=== PATIENT | female | born 1995 | race American Indian/Alaskan Native ===

== ENCOUNTER 2016-11-09 14:06 | Emergency (ER) | payer MEDICAID, OTHER ==
[2016-11-09 14:07] VITALS: BMI 24.5
[2016-11-09] MEDS ORDERED: Sodium Chloride 0.9% 1,000 ML IV ONE (14:36)
--- NOTE | 2016-11-09 14:40 | C.PDOC ---
History Of Present Illness <Tao Quijano - Last Filed: 11/09/16 21:35> <MorenaCon - Last Filed: 11/10/16 19:37> Patient is a 21 year old female with no PMHx who presents to the ER with a complaint of abdominal pain and vomiting since yesterday. Patient denies fever, nausea, diarrhea, or any other complaint. (Con Berg) <Tao Quijano - Last Filed: 11/09/16 21:35> History Per: Patient History/Exam Limitations: no limitations Onset/Duration Of Symptoms: Days (Since yesterday) Current Symptoms Are (Timing): Still Present Context: Other (None) Location Of Pain/Discomfort: Other (Abdominal pain) Radiation Of Pain To:: None Quality Of Discomfort: Unable To Describe Associated Symptoms: Vomiting. denies: Fever Exacerbating Factors: None Alleviating Factors: None <Con Berg - Last Filed: 11/10/16 19:37> Time Seen by Provider: 11/09/16 14:31 Chief Complaint (Nursing): Abdominal Pain Past Medical History Reviewed: Historical Data, Nursing Documentation, Vital Signs - Medical History PMH: No Chronic Diseases Surgical History: No Surg Hx Family History: States: Unknown Family Hx - Social History Hx Tobacco Use: No Hx Alcohol Use: Yes Hx Substance Use: No - Immunization History Hx Tetanus Toxoid Vaccination: No Hx Influenza Vaccination: No Hx Pneumococcal Vaccination: No <MorenaChelseaCon - Last Filed: 11/10/16 19:37> Vital Signs: Last Vital Signs Temp 98.4 F 11/09/16 21:14 Pulse 80 11/09/16 21:14 Resp 16 11/09/16 21:14 BP 107/62 11/09/16 21:14 Pulse Ox 98 11/09/16 21:40 Review Of Systems Except As Marked, All Systems Reviewed And Found Negative. Constitutional: Negative for: Fever Gastrointestinal: Positive for: Vomiting, Abdominal Pain. Negative for: Nausea , Diarrhea <MorenaCon - Last Filed: 11/10/16 19:37> Physical Exam - Physical Exam Appears: Well, Non-toxic Skin: Normal Color, Warm, Dry Head: Atraumatic, Normacephalic Oral Mucosa: Moist Chest: Symmetrical, No Tenderness Cardiovascular: Rhythm Regular, No Murmur Respiratory: Normal Breath Sounds, No Rales, No Rhonchi, No Wheezing Gastrointestinal/Abdominal: Soft, Tenderness (mild, suprapubic), No Guarding, No Rebound Back: No CVA Tenderness Neurological/Psych: Oriented x3, Normal Speech, Normal Cognition <Con Berg - Last Filed: 11/10/16 19:37> ED Course And Treatment - Laboratory Results Result Diagrams: 11/09/16 14:59 11/09/16 14:59 O2 Sat by Pulse Oximetry: 98 Pulse Ox Interpretation: Normal Reevaluation Time: 21:35 Reassessment Condition: Improved <Tao Quijano - Last Filed: 11/09/16 21:35> - Laboratory Results Result Diagrams: 11/09/16 14:59 11/09/16 14:59 <Con Berg - Last Filed: 11/10/16 19:37> Medical Decision Making <Tao Quijano - Last Filed: 11/09/16 21:35> <Con Berg - Last Filed: 11/10/16 19:37> Medical Decision Making: Dedra provider reevaluation patient is feeling better, is medically stable, and requires no further treatment in the ED at this time. Patient will be discharged home with Rx forflagyl. Counseling was provided and all questions were answered regarding diagnosis and need for follow up with the referred clinic. There is agreement to discharge plan. Return if symptoms persist or worsen. (Tao Quijano) Plan: * Blood work * Urinalysis * Zofran IVP * IV fluids * 600: pt reassessed. pain improved. ct pending. 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 [Outside] [facility] [Outside] Disposition: HOME/ ROUTINE Condition: FAIR Additional Instructions: please return if symptoms recur, or have high fevers, abdominal pain, diarrhea( even bloody) Prescriptions: Metronidazole [Flagyl] 500 mg PO TID #21 tablet Instructions: Enteritis (ED) Forms: Work Excuse - Clinical Impression Clinical Impression: Ileitis <Tao Quijano - Last Filed: 11/09/16 21:35> - Scribe Statement The provider has reviewed the documentation as recorded by the Scribe <Con Berg - Last Filed: 11/10/16 19:37> - Scribe Statement Ari Hays All medical record entries made by the Scribe were at my direction and personally dictated by me. I have reviewed the chart and agree that the record accurately reflects my personal performance of the history, physical exam, medical decision making, and the department course for this patient. I have also personally directed, reviewed, and agree with the discharge instructions and disposition. (Con Berg)
[2016-11-09 14:42] VITALS: RESP 16
[2016-11-09] MEDS ORDERED: Sodium Chloride 0.9% 1,000 ML ONE (14:45)
[2016-11-09 15:03] LABS: BASO % 0.2 % (0.0-2.0); EOS # 0.1 K/uL (0.0-0.7); EOS % 0.4 % (0.0-4.0); HEMATOCRIT 30.8 % (34.0-47.0); LYMPH # 1.3 K/uL (1.0-4.3); LYMPH % 8.7 % (20.0-40.0); MEAN CELL VOLUME 72.3 fL (81.0-99.0); MEAN CORPUSCULAR HEMOGLOBIN 22.6 pg (27.0-31.0); MEAN CORPUSCULAR HGB CONC 31.3 g/dL (33.0-37.0); MEAN PLATELET VOLUME 7.1 fL (7.2-11.7); MONO # 1.2 K/uL (0.0-0.8); MONO % 7.5 % (0.0-10.0); PLATELET COUNT 617 K/uL (130-400); RED CELL DISTRIBUTION WIDTH 18.2 % (11.5-14.5); WHITE BLOOD COUNT 15.5 K/uL (4.8-10.8)
[2016-11-09 15:06] LABS: RBC URINE 4 /hpf (0-3); URINE BACTERIA RARE (<OCC); URINE BILIRUBIN NEGATIVE (NEGATIVE); URINE BLOOD NEGATIVE (NEGATIVE); URINE COLOR Amber (YELLOW); URINE GLUCOSE (UA) NORMAL (Normal); URINE KETONE 2+ mg/dL (NEGATIVE); URINE LEUKOCYTE ESTERASE NEG Leu/uL (Negative); URINE PROTEIN 2+ mg/dL (NEGATIVE); URINE UROBILINOGEN NORMAL mg/dL (0.2-1.0); WBC URINE 9 /hpf (0-5)
[2016-11-09 15:11] LABS: INR 1.3
[2016-11-09 15:15] LABS: CHLORIDE 97 mmol/L (98-107); POTASSIUM 3.6 mmol/L (3.6-5.2); SODIUM 138 mmol/L (132-148)
[2016-11-09 15:17] LABS: AST/SGOT 12 U/L (14-36); BILIRUBIN,TOTAL 0.3 mg/dL (0.2-1.3); CARBON DIOXIDE 23 mmol/L (22-30); GFR AFRICAN-AMERICAN > 60
[2016-11-09 15:18] LABS: ALB/GLOB RATIO 1.1 (1.0-2.1); ALKALINE PHOSPHATASE 76 U/L (38-126); ALT/SGPT 22 U/L (9-52); BLOOD UREA NITROGEN 10 mg/dL (7-17); CALCIUM 9.6 mg/dl (8.6-10.4); GLUCOSE,RANDOM 102 mg/dL (65-105); TOTAL PROTEIN 8.4 g/dL (6.3-8.3)
[2016-11-09 15:32] LABS: NEUTROPHIL 89 % (50-75); TOTAL CELLS COUNTED 100
[2016-11-09] MEDS ORDERED: Iodixanol 320 MG/ML 100 ML BOTTLE IV ONE (18:36)
[2016-11-09 21:15] VITALS: BP 107/62; PULSE 80; TEMP 98.4; O2SAT 98
--- NOTE | 2016-11-10 10:11 | CT ---
PROCEDURE: CT Abdomen and Pelvis without intravenous contrast HISTORY: Lower abdominal pain COMPARISON: None. TECHNIQUE: Multiple contiguous axial images were performed through the abdomen and pelvis with intravenous contrast. Subsequently, sagittal coronal reformatted images were obtained. Contrast Dose: 100 cc of Visipaque 320 intravenous contrast was administered. Radiation dose: Total exam DLP = 228 mGy-cm. This CT exam was performed using one or more of the following dose reduction techniques: Automated exposure control, adjustment of the mA and/or kV according to patient size, and/or use of iterative reconstruction technique. FINDINGS: LOWER THORAX: Unremarkable. LIVER: Unremarkable. No gross lesion or ductal dilatation. GALLBLADDER AND BILE DUCTS: Unremarkable. PANCREAS: Unremarkable. No gross lesion or ductal dilatation. SPLEEN: Unremarkable. ADRENALS: Unremarkable. No mass. KIDNEYS AND URETERS: 4 millimeter hypodense lesion in the upper pole of the left kidney, too small to adequately characterize. VASCULATURE: Unremarkable. No aortic aneurysm. BOWEL: Severe mucosal thickening of the terminal ileum with prominent surrounding inflammation consistent with ileitis. This is causing a resultant mechanical small bowel obstruction with multiple dilated loops of small bowel. Under distended and or thick and transverse and left hemicolon. APPENDIX: Not well identified. Likely obscured by adjacent inflammation. PERITONEUM: Small amount of free fluid within the pelvis. LYMPH NODES: Prominent lymph nodes in the right lower quadrant which are likely reactive. BLADDER: Unremarkable. REPRODUCTIVE: Unremarkable. BONES: No acute fracture. OTHER FINDINGS: None. IMPRESSION: Severe mucosal thickening in the terminal ileum with surrounding inflammation consistent with an ileitis. This causes a resultant mechanical small bowel obstruction. Findings suggest possible acute inflammatory disease such as Crohn's disease although infection may have a similar appearance. Post treatment followup may be helpful if clinically indicated. Correlation with clinical history is recommended. Prominent lymph nodes in the right lower quadrant which are likely reactive. These findings were preliminarily reported at 9:22 p.m. on 11/09/[address] José Manuel Marti from [employer].
== END 2016-11-09 22:07 | disposition home or self-care (01) ==
LOC: C.ER 14:06
DX: K52.9 Noninfective gastroenteritis and colitis, unspecified (principal)
CPT/HCPCS: 74177; 80053; 81001; 83690; 84703; 85025; 85610; 85730; 96361; 96374; 96375; 99284; J1885; J2405; J7040; Q9967

== ENCOUNTER 2016-11-12 20:23 | Inpatient (IN) | payer MEDICAID, OTHER ==
[2016-11-12 20:23] VITALS: BMI 24.5
[2016-11-12 21:18] VITALS: O2SAT 100
[2016-11-12] MEDS ORDERED: Sodium Chloride 0.9% 1,000 ML IV ONE (22:03)
[2016-11-12] MEDS ORDERED: Iohexol 240 (50 ml) PO ONE (22:05)
[2016-11-12] MEDS ORDERED: Iohexol 240 (50 ml) ONE (22:20)
[2016-11-12] MEDS ORDERED: Sodium Chloride 0.9% 1,000 ML ONE (22:20)
[2016-11-12 22:23] LABS: BASO # 0.1 K/uL (0.0-0.2); BASO % 0.5 % (0.0-2.0); EOS # 0.1 K/uL (0.0-0.7); EOS % 0.7 % (0.0-4.0); HEMATOCRIT 31.4 % (34.0-47.0); LYMPH # 1.8 K/uL (1.0-4.3); LYMPH % 16.1 % (20.0-40.0); MEAN CELL VOLUME 71.7 fL (81.0-99.0); MEAN CORPUSCULAR HEMOGLOBIN 22.2 pg (27.0-31.0); MEAN PLATELET VOLUME 7.1 fL (7.2-11.7); MONO # 0.8 K/uL (0.0-0.8); MONO % 6.6 % (0.0-10.0); RED CELL DISTRIBUTION WIDTH 17.7 % (11.5-14.5); WHITE BLOOD COUNT 11.5 K/uL (4.8-10.8)
[2016-11-12 22:33] LABS: CHLORIDE 96 mmol/L (98-107); POTASSIUM 2.9 mmol/L (3.6-5.2); SODIUM 139 mmol/L (132-148)
[2016-11-12 22:35] LABS: AST/SGOT 13 U/L (14-36); BILIRUBIN,TOTAL 0.6 mg/dL (0.2-1.3); CARBON DIOXIDE 27 mmol/L (22-30); GFR AFRICAN-AMERICAN > 60
[2016-11-12 22:36] LABS: ALB/GLOB RATIO 1.1 (1.0-2.1); ALKALINE PHOSPHATASE 61 U/L (38-126); ALT/SGPT 16 U/L (9-52); BLOOD UREA NITROGEN 5 mg/dL (7-17); CALCIUM 9.2 mg/dl (8.6-10.4); GLUCOSE,RANDOM 92 mg/dL (65-105)
[2016-11-12 22:44] LABS: RBC URINE 3 /hpf (0-3); URINE BACTERIA RARE (<OCC); URINE BILIRUBIN NEGATIVE (NEGATIVE); URINE BLOOD NEGATIVE (NEGATIVE); URINE COLOR YELLOW (YELLOW); URINE GLUCOSE (UA) NORMAL (Normal); URINE KETONE NEGATIVE (NEGATIVE); URINE LEUKOCYTE ESTERASE 2+ Leu/uL (Negative); URINE PROTEIN 1+ mg/dL (NEGATIVE); URINE UROBILINOGEN NORMAL mg/dL (0.2-1.0); WBC URINE 25 /hpf (0-5)
[2016-11-12] MEDS ORDERED: Iodixanol 320 mg/ml 150 ml Bottle IV ONE (23:12)
--- NOTE | 2016-11-12 23:59 | C.PDOC ---
History Of Present Illness Patient is a 21 year old female who presents to the ER with a complaint of lower abdominal pain for the past 3 days. Patient was seen on 11/09 where she was diagnosed with terminal enteritis, she was given flagyl and discharged home. Patient reports having nausea and vomiting due to the flagyl and states having poor PO intake due to the vomiting. Denies fever or chills. Time Seen by Provider: 11/12/16 21:52 Chief Complaint (Nursing): Abdominal Pain History Per: Patient History/Exam Limitations: no limitations Onset/Duration Of Symptoms: Days (3) Current Symptoms Are (Timing): Still Present Location Of Pain/Discomfort: Other (Lower abdominal) Radiation Of Pain To:: None Quality Of Discomfort: Unable To Describe Associated Symptoms: Nausea, Vomiting. denies: Fever, Chills Exacerbating Factors: None Alleviating Factors: None Recent travel outside of the [place]: No Abnormal Vaginal Bleeding: No Past Medical History Reviewed: Historical Data, Nursing Documentation, Vital Signs Vital Signs: Last Vital Signs Temp 98.6 F 11/12/16 21:14 Pulse 115 H 11/12/16 21:14 Resp 14 11/12/16 21:14 BP 106/71 11/12/16 21:14 Pulse Ox 100 11/13/16 00:35 - Medical History PMH: No Chronic Diseases Surgical History: No Surg Hx Family History: States: Unknown Family Hx - Social History Hx Tobacco Use: No Hx Alcohol Use: Yes Hx Substance Use: No - Immunization History Hx Tetanus Toxoid Vaccination: No Hx Influenza Vaccination: No Hx Pneumococcal Vaccination: No Review Of Systems Constitutional: Negative for: Fever, Chills Gastrointestinal: Positive for: Nausea, Vomiting, Abdominal Pain (Lower) Physical Exam - Physical Exam Appears: Well, Non-toxic, No Acute Distress Skin: Normal Color, Warm, Dry Head: Atraumatic, Normacephalic Oral Mucosa: Dry Chest: Symmetrical, No Tenderness Cardiovascular: Rhythm Regular, No Murmur Respiratory: Normal Breath Sounds, No Rales, No Rhonchi, No Wheezing Gastrointestinal/Abdominal: Soft, Tenderness (RLQ) Neurological/Psych: Oriented x3, Normal Speech, Normal Cognition ED Course And Treatment - Laboratory Results Result Diagrams: 11/12/16 22:18 11/12/16 22:18 Lab Interpretation: Abnormal (leukocytosis, + hypokalemia, UA 25 WBC's, microcytic anemia) Urine POC: Negative ECG: Interpreted By Me ECG Rhythm: Sinus Rhythm ECG Interpretation: Normal Rate From EC (without flattened T^'s) O2 Sat by Pulse Oximetry: 100 (Room air) Pulse Ox Interpretation: Normal Progress Note: abd/pel CT w/ IV & PO contrast ordered. Pepcid IVP, toradol IVP, zofran IVP, and IV fluids administered. Reevaluation Time: 00:31 Reassessment Condition: Improved - Physician Consult Information Outcome Of Conversation: 0030: d/w Dr. Frias- [employer]. ok to Tele Obs. Medical Decision Making Medical Decision Making: terminal iliitis seen 11/09 with worstening on Flagyl noted on CT Dehydration and hypokalemia from poor intake and vomiting- repleating ? underlying Crohn's Dz- GI consult pending. Cipro empirically to cover GI and UTI Iron Def anemia of ? etiology- consider GI and [employer] evals Disposition Doctor Will See Patient In The: Hospital Counseled Patient/Family Regarding: Studies Performed, Diagnosis - Disposition Disposition: HOSPITALIZED Disposition Time: 00:33 Condition: FAIR - Clinical Impression Clinical Impression: Ileitis, terminal, Dehydration, Hypokalemia, UTI (urinary tract infection), Iron deficiency anemia - Scribe Statement The provider has reviewed the documentation as recorded by the Scribmelvin Hays All medical record entries made by the Scribe were at my direction and personally dictated by me. I have reviewed the chart and agree that the record accurately reflects my personal performance of the history, physical exam, medical decision making, and the department course for this patient. I have also personally directed, reviewed, and agree with the discharge instructions and disposition.
[2016-11-13] MEDS ORDERED: Sodium Chloride 0.9% 1,000 ML IV ONE (00:12)
--- NOTE | 2016-11-13 00:13 | CT ---
EXAM: CT Abdomen and Pelvis With Intravenous Contrast CLINICAL HISTORY: 21 years old, female; Pain; Abdominal pain; Flank; Right lower quadrant (rlq); Additional info: Rlq pain x 5 days TECHNIQUE: Axial computed tomography images of the abdomen and pelvis with intravenous contrast. This CT exam was performed using one or more of the following dose reduction techniques: automated exposure control, adjustment of the mA and/or kV according to patient size, and/or use of iterative reconstruction technique. Coronal and sagittal reformatted images were created and reviewed. CONTRAST: 100 mL of visipaque 320 administered intravenously. COMPARISON: CT - ABD PELVIS IV CONTRAST ONLY 11/09/2016 6:48:52 PM FINDINGS: Lower thorax: No acute findings. ABDOMEN: Liver: Unremarkable. No mass. Gallbladder and bile ducts: No calcified stones. No ductal dilation. Pancreas: No ductal dilation. No mass. Spleen: No splenomegaly. Adrenals: No mass. Kidneys and ureters: No mass. No hydronephrosis. Stomach and bowel: Fluid/loose stool within colon. Marked mural thickening of terminal ileum, similar to previous examination. Moderate stranding within adjacent fat. Few mildly thickened loops of small bowel within pelvis. Segmental areas of underdistention of colon. No definite obstruction. Appendix: Not visualized. PELVIS: Bladder: Unremarkable. Reproductive: Unremarkable as visualized. ABDOMEN and PELVIS: Intraperitoneal space: Small free fluid within pelvis. No free air. Bones/joints: No acute fracture. Soft tissues: Unremarkable. Vasculature: Unremarkable. No abdominal aortic aneurysm. Lymph nodes: Several subcentimeter/mildly enlarged short axis mesenteric lymph nodes, likely reactive. IMPRESSION: 1. Severe enteritis, nonspecific. Consider inflammatory or infectious etiologies. 2. Incidental/non-acute findings are described above.
[2016-11-13] MEDS ORDERED: Sodium Chloride 0.9% 1,000 ML ONE (00:28)
[2016-11-13] MEDS ORDERED: Ciprofloxacin 400mg/200ml D5W 400 MG/200 ML BAG IV STA (00:34)
[2016-11-13] MEDS ORDERED: Ciprofloxacin 400mg/200ml D5W 400 MG/200 ML BAG IVPB ONE (01:00)
[2016-11-13] MEDS: Potassium Chloride 20 MEQ in Dextrose 5%/0.45% NS 1,000 ML IV SCH ×2 (08:38→19:33)
[2016-11-13] MEDS: Ciprofloxacin 400mg/200ml D5W 400 MG/200 ML BAG IVPB SCH ×2 (08:39→19:33)
[2016-11-13 08:58] LABS: CHLORIDE 101 mmol/L (98-107); POTASSIUM 3.1 mmol/L (3.6-5.2); SODIUM 136 mmol/L (132-148)
[2016-11-13 09:01] LABS: BLOOD UREA NITROGEN 3 mg/dL (7-17); CARBON DIOXIDE 26 mmol/L (22-30); GFR AFRICAN-AMERICAN > 60
[2016-11-13 09:02] LABS: CALCIUM 7.9 mg/dl (8.6-10.4); GLUCOSE,RANDOM 81 mg/dL (65-105); MAGNESIUM 1.9 mg/dL (1.6-2.3)
[2016-11-13] MEDS: metroNIDAZOLE IV 500 mg/100 ml 500 MG/100 ML BAG IVPB SCH ×2 (13:57→22:02)
[2016-11-13 19:37] VITALS: RESP 20
[2016-11-14] MEDS: Potassium Chloride 20 MEQ in Dextrose 5%/0.45% NS 1,000 ML IV SCH ×3 (01:22→15:31)
[2016-11-14] MEDS: metroNIDAZOLE IV 500 mg/100 ml 500 MG/100 ML BAG IVPB SCH ×2 (05:40→13:11)
[2016-11-14] MEDS: Ciprofloxacin 400mg/200ml D5W 400 MG/200 ML BAG IVPB SCH (07:39)
[2016-11-14 14:56] LABS: CHLORIDE 97 mmol/L (98-107)
[2016-11-14 14:57] LABS: POTASSIUM 3.3 mmol/L (3.6-5.2); SODIUM 134 mmol/L (132-148)
[2016-11-14 15:00] LABS: CALCIUM 8.8 mg/dl (8.6-10.4); CARBON DIOXIDE 25 mmol/L (22-30); GFR AFRICAN-AMERICAN > 60; GLUCOSE,RANDOM 81 mg/dL (65-105)
[2016-11-14 15:01] LABS: MAGNESIUM 1.6 mg/dL (1.6-2.3)
[2016-11-14 15:04] LABS: BLOOD UREA NITROGEN < 2 mg/dL (7-17)
[2016-11-14] MEDS ORDERED: Potassium Chloride 20 mEq ER Tab PO ONE (15:11)
--- NOTE | 2016-11-14 15:57 | CP.PCM.PN ---
Subjective - Date & Time of Evaluation Date of Evaluation: 11/14/16 Time of Evaluation: 15:57 - Subjective Subjective: Alert, oriented x3, denies pain, tolerating liquid diet, NAD. Objective - Vital Signs/Intake and Output Vital Signs (last 24 hours): Temp Pulse Resp BP Pulse Ox 98.4 F 82 20 110/72 100 11/14/16 07:36 11/14/16 07:36 11/14/16 07:36 11/14/16 07:36 11/14/16 07:36 Intake and Output: 11/14/16 11/14/16 06:59 18:59 Intake Total 1470 Balance 1470 - Medications Medications: Current Medications Ciprofloxacin (Cipro 400mg/200ml Dsw) 400 mg in 200 mls @ 133 mls/hr IVPB Q12H [facility] Last Admin: 11/14/16 07:39 Dose: 133 mls/hr Metronidazole (Flagyl) 500 mg in 100 mls @ 100 mls/hr IVPB Q8 [facility] Last Admin: 11/14/16 13:11 Dose: 100 mls/hr Potassium Chloride 20 meq/ (Dextrose/Sodium Chloride) 1,010 mls @ 100 mls/hr IV .Q10H6M [facility] Last Admin: 11/14/16 15:31 Dose: Not Given Ondansetron HCl (Zofran Inj) 4 mg IVP Q6 PRN PRN Reason: Nausea/Vomiting Pantoprazole Sodium (Protonix Inj) 40 mg IVP DAILY [facility] Last Admin: 11/14/16 10:32 Dose: 40 mg - Labs Labs: 11/14/16 14:45 Assessment and Plan - Assessment and Plan (Free Text) Assessment: Patient is seen and examined, denies acute pain or vomiting. Potassium 3.3 today , replaced with 40meq kdur x1 dose. D/W DR Frias, discharge plan x for home on keflex for 7 days. Advised to follow up in the office in 1 week.
--- NOTE | 2016-11-14 16:02 | CP.PCM.HP ---
History of Present Illness - History of Present Illness History of Present Illness: Patient is a 21 year old female who presents to the ER with a complaint of lower abdominal pain for the past 3 days. Patient was seen on 11/09 where she was diagnosed with terminal enteritis, she was given flagyl and discharged home. Patient reports having nausea and vomiting due to the flagyl and states having poor PO intake due to the vomiting. Denies fever or chills. Present on Admission - Present on Admission Any Indicators Present on Admission: No Review of Systems - Review of Systems Systems not reviewed;Unavailable: Acuity of Condition - Constitutional Constitutional: Anorexia, Chills, Fatigue, Fever, Lethargy, Malaise - EENT Eyes: absent: As Per HPI, Blind Spots, Blurred Vision, Change in Vision, Decreased Night Vision, Diplopia, Discharge, Dry Eye, Exophthalmos, Floaters, Irritation, Itchy Eyes, Loss of Peripheral Vision, Pain, Photophobia, Requires Corrective Lenses, Sees Flashes, Spots in Vision, Tunnel Vision, Other Visual Disturbances, Loss of Vision, Other Nose/Mouth/Throat: absent: As Per HPI, Epistaxis, Nasal Congestion, Nasal Discharge, Nasal Obstruction, Nasal Trauma, Nose Pain, Post Nasal Drip, Sinus Pain, Sinus Pressure, Bleeding Gums, Change in Voice, Dental Pain, Dry Mouth, Dysphagia, Halitosis, Hoarsness, Lip Swelling, Mouth Lesions, Mouth Pain, Odynophagia, Sore Throat, Throat Swelling, Tongue Swelling, Facial Pain, Neck Pain, Neck Mass, Other - Cardiovascular Cardiovascular: absent: As Per HPI, Acrocyanosis, Chest Pain, Chest Pain at Rest , Chest Pain with Activity, Claudication, Diaphoresis, Dyspnea, Dyspnea on Exertion, Edema, Irregular Heart Rhythm, Pain Radiating to Arm/Neck/Jaw, Leg Edema, Leg Ulcers, Lightheadedness, Orthopnea, Palpitations, Paroxysmal Nocturnal Dyspnea, Pedal Edema, Radiating Pain, Rapid Heart Rate, Slow Heart Rate, Syncope, Other - Respiratory Respiratory: absent: As Per HPI, Cough, Dyspnea, Hemoptysis, Dyspnea on Exertion , Wheezing, Snoring, Stridor, Pain on Inspiration, Chest Congestion, Excessive Mucous Production, Change in Mucous Color, Pain with Coughing, Other - Gastrointestinal Gastrointestinal: Abdominal Pain, Diarrhea, Nausea, Vomiting Past Patient History - Infectious Disease Hx of Infectious Diseases: None - Past Medical History & Family History Past Medical History?: No - Past Social History Smoking Status: Never Smoked - MUSCULOSKELETAL/RHEUMATOLOGICAL Hx Falls: No - PSYCHIATRIC Hx Substance Use: No - SURGICAL HISTORY Hx Surgeries: No - ANESTHESIA Hx Anesthesia: No Meds Home Medications: Home Medication List Medication Instructions Recorded Confirmed Type Cephalexin [Keflex] 500 mg PO Q8H #9 capsule 11/14/16 Rx Allergies/Adverse Reactions: Allergies Allergy/AdvReac Type Severity Reaction Status Date / Time No Known Allergies Allergy Verified 11/12/16 21:18 Physical Exam - Constitutional Appears: Well, No Acute Distress - Head Exam Head Exam: ATRAUMATIC, NORMAL INSPECTION, NORMOCEPHALIC - Eye Exam Eye Exam: EOMI, Normal appearance, PERRL Pupil Exam: NORMAL ACCOMODATION, PERRL - ENT Exam ENT Exam: Mucous Membranes Moist, Normal Exam - Neck Exam Neck exam: Positive for: Normal Inspection - Cardiovascular Exam Cardiovascular Exam: REGULAR RHYTHM - GI/Abdominal Exam GI & Abdominal Exam: Normal Bowel Sounds, Soft. absent: Tenderness - Extremities Exam Extremities exam: Positive for: normal inspection Results - Vital Signs Recent Vital Signs: Last Vital Signs Temp 98.4 F 11/14/16 07:36 Pulse 82 11/14/16 07:36 Resp 20 11/14/16 07:36 BP 110/72 11/14/16 07:36 Pulse Ox 100 11/14/16 07:36 - Labs Result Diagrams: 11/12/16 22:18 11/14/16 14:45 Labs: Laboratory Results - last 24 hr 11/14/16 14:45 Sodium 134 Potassium 3.3 L Chloride 97 L Carbon Dioxide 25 Anion Gap 15 BUN < 2 L Creatinine 0.7 Est GFR ( Amer) > 60 Est GFR (Non-Af Amer) > 60 Random Glucose 81 Calcium 8.8 Magnesium 1.6 Assessment & Plan (1) Dehydration Status: Acute (2) Hypokalemia Status: Acute (3) Ileitis, terminal Status: Acute (4) UTI (urinary tract infection) Status: Acute
[2016-11-14 16:43] VITALS: BP 112/74; PULSE 88; TEMP 98.6
--- NOTE | 2016-11-14 17:52 | CP.PCM.DIS ---
Provider - Provider Date of Admission: 11/13/16 00:28 Attending physician: Darian Frias MD Time Spent in preparation of Discharge (in minutes): 30 Diagnosis - Discharge Diagnosis (1) Dehydration Status: Acute (2) Hypokalemia Status: Acute (3) Ileitis, terminal Status: Acute (4) UTI (urinary tract infection) Status: Acute Hospital Course - Lab Results Lab Results: Most Recent Lab Values WBC 11.5 K/uL (4.8-10.8) H 11/12/16 22:18 RBC 4.38 Mil/uL (3.80-5.20) 11/12/16 22:18 Hgb 9.7 g/dL (11.0-16.0) L 11/12/16 22:18 Hct 31.4 % (34.0-47.0) L 11/12/16 22:18 MCV 71.7 fL (81.0-99.0) L 11/12/16 22:18 MCH 22.2 pg (27.0-31.0) L 11/12/16 22:18 MCHC 31.0 g/dL (33.0-37.0) L 11/12/16 22:18 RDW 17.7 % (11.5-14.5) H 11/12/16 22:18 Plt Count 575 K/uL (130-400) H 11/12/16 22:18 MPV 7.1 fL (7.2-11.7) L 11/12/16 22:18 Neut % (Auto) 76.1 % (50.0-75.0) H 11/12/16 22:18 Lymph % (Auto) 16.1 % (20.0-40.0) L 11/12/16 22:18 Karnes % (Auto) 6.6 % (0.0-10.0) 11/12/16 22:18 Eos % (Auto) 0.7 % (0.0-4.0) 11/12/16 22:18 Baso % (Auto) 0.5 % (0.0-2.0) 11/12/16 22:18 Neut # 8.7 K/uL (1.8-7.0) H 11/12/16 22:18 Lymph # 1.8 K/uL (1.0-4.3) 11/12/16 22:18 Karnes # 0.8 K/uL (0.0-0.8) 11/12/16 22:18 Eos # 0.1 K/uL (0.0-0.7) 11/12/16 22:18 Baso # 0.1 K/uL (0.0-0.2) 11/12/16 22:18 Sodium 134 mmol/L (132-148) 11/14/16 14:45 Potassium 3.3 mmol/L (3.6-5.2) L 11/14/16 14:45 Chloride 97 mmol/L (98-107) L 11/14/16 14:45 Carbon Dioxide 25 mmol/L (22-30) 11/14/16 14:45 Anion Gap 15 (10-20) 11/14/16 14:45 BUN < 2 mg/dL (7-17) L 11/14/16 14:45 Creatinine 0.7 MG/DL (0.7-1.2) 11/14/16 14:45 Est GFR ( Amer) > 60 11/14/16 14:45 Est GFR (Non-Af Amer) > 60 11/14/16 14:45 Random Glucose 81 mg/dL (65-105) 11/14/16 14:45 Calcium 8.8 mg/dl (8.6-10.4) 11/14/16 14:45 Magnesium 1.6 mg/dL (1.6-2.3) 11/14/16 14:45 Total Bilirubin 0.6 mg/dL (0.2-1.3) 11/12/16 22:18 AST 13 U/L (14-36) L 11/12/16 22:18 ALT 16 U/L (9-52) 11/12/16 22:18 Alkaline Phosphatase 61 U/L (38-126) 11/12/16 22:18 Total Protein 8.0 g/dL (6.3-8.3) 11/12/16 22:18 Albumin 4.2 g/dL (3.5-5.0) 11/12/16 22:18 Globulin 3.9 gm/dL (2.2-3.9) 11/12/16 22:18 Albumin/Globulin Ratio 1.1 (1.0-2.1) 11/12/16 22:18 Lipase 19 U/L (23-300) L 11/12/16 22:18 Urine Color Yellow (YELLOW) 11/12/16 22:18 Urine Clarity Hazy (Clear) 11/12/16 22:18 Urine pH 7.0 (5.0-8.0) 11/12/16 22:18 Ur Specific [place] 1.013 (1.003-1.030) 11/12/16 22:18 Urine Protein 1+ mg/dL (NEGATIVE) H 11/12/16 22:18 Urine Glucose (UA) Normal mg/dL (Normal) 11/12/16 22:18 Urine Ketones Negative mg/dL (NEGATIVE) 11/12/16 22:18 Urine Blood Negative (NEGATIVE) 11/12/16 22:18 Urine Nitrate Negative (NEGATIVE) 11/12/16 22:18 Urine Bilirubin Negative (NEGATIVE) 11/12/16 22:18 Urine Urobilinogen Normal mg/dL (0.2-1.0) 11/12/16 22:18 Ur Leukocyte Esterase 2+ Crispin/uL (Negative) H 11/12/16 22:18 Urine WBC (Auto) 25 /hpf (0-5) H 11/12/16 22:18 Urine RBC (Auto) 3 /hpf (0-3) 11/12/16 22:18 Ur Squamous Epith Cells 16 /hpf (0-5) H 11/12/16 22:18 Urine Bacteria Rare (<OCC) 11/12/16 22:18 Urine HCG, Qual Negative (NEGATIVE) 11/12/16 22:18 - Hospital Course Hospital Course: Pt seen and examined Alert, oriented x3, denies pain, tolerating liquid diet, NAD. pt is for discharge today Discharge Exam - Head Exam Head Exam: ATRAUMATIC, NORMAL INSPECTION, NORMOCEPHALIC - Eye Exam Eye Exam: EOMI, Normal appearance, PERRL Pupil Exam: NORMAL ACCOMODATION, PERRL - ENT Exam ENT Exam: Mucous Membranes Moist - Respiratory Exam Respiratory Exam: Clear to PA & Lateral, NORMAL BREATHING PATTERN - Cardiovascular Exam Cardiovascular Exam: REGULAR RHYTHM, +S1, +S2 - GI/Abdominal Exam GI & Abdominal Exam: Normal Bowel Sounds Discharge Plan - Discharge Medications Prescriptions: Cephalexin [Keflex] 500 mg PO Q8H #9 capsule - Follow Up Plan Condition: FAIR Disposition: HOME/ ROUTINE Instructions: Cephalexin (By mouth), Dysmenorrhea (GEN), How to Stop Smoking ( DC), Gastritis (DC), Dehydration (DC), Iron Rich Diet (GEN), Hypokalemia (DC), Cigarette Smoking and Your Health (GEN), Iron Deficiency Anemia (DC)
--- NOTE | 2016-11-14 19:07 | CARD ---
APPROVED REPORT EKG Measurement Heart [id number] <Conclusion> Sinus rhythm with marked sinus arrhythmia Otherwise normal ECG
== END 2016-11-14 18:30 | disposition home or self-care (01) | DRG 296 ==
LOC: C.ER 20:23 → C.9E 11-13 00:28 → C.9I 11-13 04:48 → C.3T 11-13 19:31
PROVIDERS: ADMIT Internal Medicine; ATTEND Internal Medicine
DX: E86.0 Dehydration (principal); N39.0 Urinary tract infection, site not specified; K52.9 Noninfective gastroenteritis and colitis, unspecified; E87.6 Hypokalemia; D50.9 Iron deficiency anemia, unspecified

== ENCOUNTER 2016-12-23 11:33 | Emergency (ER) | payer MEDICAID, OTHER ==
[2016-12-23 11:33] VITALS: BMI 24.5
[2016-12-23] MEDS ORDERED: Alum-Mag Hydrox-Simethicone Susp (30 mL) PO STA (12:20)
[2016-12-23] MEDS ORDERED: Sodium Chloride 0.9% 1,000 ML IV ONE (12:26)
--- NOTE | 2016-12-23 12:26 | C.PDOC ---
History Of Present Illness 21 yr old female presents to the ER with complaints of abdominal pain. Patient was seen here on 11/13 and was admitted for dehydration by Dr. Frias. Patient states she went to go see Dr. Frias yesterday and was told she might have gastritis and gave her medicine to take and sent her home. Prior records also show patient has had 2 abdomen CAT scans in the last month which show enteritis and thickened loops of small bowel. Patient reports of nausea. Denies fever, vomiting, diarrhea, dysuria, weakness or numbness. Time Seen by Provider: 12/23/16 11:55 Chief Complaint (Nursing): Abdominal Pain History Per: Patient History/Exam Limitations: no limitations Onset/Duration Of Symptoms: Days Location Of Pain/Discomfort: Epigastric Quality Of Discomfort: Dull Associated Symptoms: Nausea Exacerbating Factors: Food Abnormal Vaginal Bleeding: No Past Medical History Reviewed: Historical Data, Nursing Documentation, Vital Signs Vital Signs: Last Vital Signs Temp 99.1 F 12/23/16 13:46 Pulse 109 H 12/23/16 13:46 Resp 20 12/23/16 13:46 BP 111/78 12/23/16 13:46 Pulse Ox 100 12/23/16 13:46 - Medical History PMH: No Chronic Diseases Surgical History: No Surg Hx Family History: States: No Known Family Hx - Social History Hx Tobacco Use: No Hx Alcohol Use: Yes (occasional) Hx Substance Use: No - Immunization History Hx Tetanus Toxoid Vaccination: No Hx Influenza Vaccination: No Hx Pneumococcal Vaccination: No Review Of Systems Except As Marked, All Systems Reviewed And Found Negative. Constitutional: Negative for: Fever Gastrointestinal: Positive for: Nausea, Abdominal Pain. Negative for: Vomiting , Diarrhea Genitourinary: Negative for: Dysuria Neurological: Negative for: Weakness, Numbness Physical Exam - Physical Exam Appears: Non-toxic, No Acute Distress Skin: Warm, Dry, No Rash Head: Atraumatic, Normacephalic Oral Mucosa: Moist Neck: Normal Chest: Symmetrical, No Tenderness Cardiovascular: Rhythm Regular, No Murmur Respiratory: Normal Breath Sounds, No Rales, No Wheezing Gastrointestinal/Abdominal: Soft, Tenderness (Mild upper and epigastric tenderness), No Guarding, No Rebound Extremity: Normal ROM, No Swelling Neurological/Psych: Oriented x3, Normal Speech, Normal Motor Gait: Steady ED Course And Treatment - Laboratory Results Result Diagrams: 12/23/16 12:25 12/23/16 12:25 Lab Interpretation: No Acute Changes Urine POC: Negative O2 Sat by Pulse Oximetry: 97 - Other Rad X-Ray - Obstructive Series X-Ray: Viewed By Me, Read By Radiologist Interpretation: PROCEDURE: Radiographs of the chest and abdomen (obstructive series). HISTORY: Abd Pain. COMPARISON: No prior. TECHNIQUE: AP radiograph of the chest, with upright and supine radiographs of the abdomen. FINDINGS: CHEST: Lungs: Clear. Cardiovascular: Normal size heart. No pulmonary vascular congestion. Pleura: No pleural fluid. No pneumothorax. Other findings: None. ABDOMEN AND PELVIS: Bowel: There is a nonspecific bowel gas pattern identified with a few minimally irregular small bowel loops and/or colonic loops noted. Finding may suggest ileus in the correct clinical setting. No obvious bowel wall thickening is noted. Free air: None. Bones: Minor scoliosis is suspected. . No obvious bony abnormality elsewhere. Other findings : None. IMPRESSION: Nonspecific bowel gas pattern with a few minimally irregular bowel loops identified. This may suggest ileus. No gross plain film evidence of bowel obstruction. No evidence of focal infiltrate or effusion. No free air seen. Minor scoliosis. Progress Note: Treated with IVF NSS , zofran and mylanta. Case discussed with Dr Frias who request discharge and follow up with GI. On re-evaluation lungs clear abdomen soft Reassessment Condition: Improved - Physician Consult Information Physician Contacted: Darian Frias Outcome Of Conversation: discharge Medical Decision Making Medical Decision Making: PLAN: * X-Ray - Obstructive Series * CBC * CMP * HCG * Urinalysis * Maalox PO * Pepcid IVP * Zofran IVP * Sodium Chloride IV Disposition Counseled Patient/Family Regarding: Studies Performed, Diagnosis, Need For Followup, Rx Given - Disposition Referrals: Darian Frias MD [Staff Provider] - Deejay Sheppard MD [Staff Provider] - Disposition: HOME/ ROUTINE Disposition Time: 14:00 Condition: STABLE Additional Instructions: Follow up with Dr Frias for referral to GI Return to ED if any increase symptoms Prescriptions: Ondansetron ODT [Zofran ODT] 1 odt PO BID PRN #6 odt PRN Reason: Nausea/Vomiting Instructions: Abdominal Pain (ED) Forms: Work Excuse - POA Present On Arrival: None - Clinical Impression Clinical Impression: Nausea, Abdominal pain - PA / IN SERVICE EDUCATOR / Resident Statement MD/DO has reviewed & agrees with the documentation as recorded. - Scribe Statement The provider has reviewed the documentation as recorded by the Scribe Joceline Ortega All medical record entries made by the Sheilaibmelvin were at my direction and personally dictated by me. I have reviewed the chart and agree that the record accurately reflects my personal performance of the history, physical exam, medical decision making, and the department course for this patient. I have also personally directed, reviewed, and agree with the discharge instructions and disposition.
[2016-12-23] MEDS ORDERED: Alum-Mag Hydrox-Simethicone Susp (30 mL) ONE (12:28)
[2016-12-23 12:31] LABS: BASO % 0.1 % (0.0-2.0); EOS # 0.2 K/uL (0.0-0.7); EOS % 1.6 % (0.0-4.0); HEMATOCRIT 30.1 % (34.0-47.0); LYMPH # 1.9 K/uL (1.0-4.3); MEAN CELL VOLUME 73.2 fL (81.0-99.0); MEAN CORPUSCULAR HEMOGLOBIN 22.7 pg (27.0-31.0); MEAN PLATELET VOLUME 7.2 fL (7.2-11.7); RED CELL DISTRIBUTION WIDTH 20.3 % (11.5-14.5); WHITE BLOOD COUNT 12.7 K/uL (4.8-10.8)
[2016-12-23 12:39] LABS: CHLORIDE 100 mmol/L (98-107)
[2016-12-23 12:40] LABS: POTASSIUM 3.8 mmol/L (3.6-5.2); SODIUM 136 mmol/L (132-148)
[2016-12-23] MEDS ORDERED: Sodium Chloride 0.9% 1,000 ML ONE (12:40)
[2016-12-23 12:41] LABS: RBC URINE 7 /hpf (0-3); URINE BACTERIA RARE (<OCC); URINE BILIRUBIN NEGATIVE (NEGATIVE); URINE BLOOD 2+ (NEGATIVE); URINE CALCIUM OXALATE CRYSTALS OCC /hpf (<OCC); URINE COLOR Yellow (YELLOW); URINE GLUCOSE (UA) NORMAL (Normal); URINE HYALINE CAST 0-2 /lpf (0-2); URINE KETONE TRACE mg/dL (NEGATIVE); URINE LEUKOCYTE ESTERASE NEG Leu/uL (Negative); URINE PROTEIN NEGATIVE (NEGATIVE); URINE UROBILINOGEN NORMAL mg/dL (0.2-1.0); WBC URINE 4 /hpf (0-5)
[2016-12-23 12:43] LABS: ALB/GLOB RATIO 0.9 (1.0-2.1); ALKALINE PHOSPHATASE 72 U/L (38-126); ALT/SGPT 18 U/L (9-52); AST/SGOT 16 U/L (14-36); BILIRUBIN,TOTAL 0.6 mg/dL (0.2-1.3); BLOOD UREA NITROGEN 10 mg/dL (7-17); CALCIUM 8.9 mg/dl (8.6-10.4); CARBON DIOXIDE 26 mmol/L (22-30); GFR AFRICAN-AMERICAN > 60; GLUCOSE,RANDOM 85 mg/dL (65-105); TOTAL PROTEIN 7.4 g/dL (6.3-8.3)
--- NOTE | 2016-12-23 12:59 | RAD ---
PROCEDURE: Radiographs of the chest and abdomen (obstructive series) HISTORY: Abd Pain COMPARISON: No prior. TECHNIQUE: AP radiograph of the chest, with upright and supine radiographs of the abdomen. FINDINGS: CHEST: Lungs: Clear. Cardiovascular: Normal size heart. No pulmonary vascular congestion. Pleura: No pleural fluid. No pneumothorax. Other findings: None. ABDOMEN AND PELVIS: Bowel: There is a nonspecific bowel gas pattern identified with a few minimally irregular small bowel loops and/or colonic loops noted. Finding may suggest ileus in the correct clinical setting. No obvious bowel wall thickening is noted. Free air: None. Bones: Minor scoliosis is suspected. . No obvious bony abnormality elsewhere. Other findings: None. IMPRESSION: Nonspecific bowel gas pattern with a few minimally irregular bowel loops identified. This may suggest ileus. No gross plain film evidence of bowel obstruction. No evidence of focal infiltrate or effusion. No free air seen. Minor scoliosis.
[2016-12-23 13:47] VITALS: BP 111/78; PULSE 109; RESP 20; TEMP 99.1
[2016-12-23 17:49] VITALS: O2SAT 97
== END 2016-12-23 14:00 | disposition home or self-care (01) ==
LOC: C.ER 11:33
DX: R10.13 Epigastric pain (principal); R11.0 Nausea
CPT/HCPCS: 74022; 80053; 81001; 83690; 84703; 85025; 94770; 96374; 96375; 99284; J2405; J7040

== ENCOUNTER 2017-02-02 20:38 | Emergency (ER) | payer SELFPAY ==
[2017-02-02 20:38] VITALS: BMI 24.5
[2017-02-02] MEDS ORDERED: Sodium Chloride 0.9% 1,000 ML IV ONE (21:50)
[2017-02-02 21:51] LABS: SQUAMOUS EPITHIAL 4 /hpf (0-5); URINE BACTERIA RARE (<OCC); URINE BILIRUBIN NEGATIVE (NEGATIVE); URINE BLOOD 3+ (NEGATIVE); URINE CLARITY Clear (Clear); URINE COLOR Yellow (YELLOW); URINE GLUCOSE (UA) NORMAL (Normal); URINE LEUKOCYTE ESTERASE TRACE Leu/uL (Negative); URINE NITRATE NEGATIVE (NEGATIVE); URINE PROTEIN NEGATIVE (NEGATIVE)
[2017-02-02 21:53] LABS: HCG,QUALITATIVE URINE NEGATIVE (NEGATIVE)
[2017-02-02] MEDS ORDERED: Sodium Chloride 0.9% 1,000 ML ONE (22:02)
[2017-02-02 22:03] LABS: BASO % 0.1 % (0.0-2.0); EOS # 0.2 K/uL (0.0-0.7); EOS % 1.4 % (0.0-4.0); HEMOGLOBIN 9.8 g/dL (11.0-16.0); LYMPH # 3.6 K/uL (1.0-4.3); LYMPH % 24.8 % (20.0-40.0); MEAN CELL VOLUME 73.1 fL (81.0-99.0); MEAN CORPUSCULAR HEMOGLOBIN 23.5 pg (27.0-31.0); MEAN CORPUSCULAR HGB CONC 32.1 g/dL (33.0-37.0); MEAN PLATELET VOLUME 6.8 fL (7.2-11.7); MONO # 0.9 K/uL (0.0-0.8); MONO % 6.5 % (0.0-10.0); NEUT # 9.7 K/uL (1.8-7.0); NEUT % 67.2 % (50.0-75.0); RBC 4.17 Mil/uL (3.80-5.20); RED CELL DISTRIBUTION WIDTH 19.2 % (11.5-14.5); WHITE BLOOD COUNT 14.5 K/uL (4.8-10.8)
[2017-02-02 22:11] LABS: ALBUMIN 3.6 g/dL (3.5-5.0)
[2017-02-02 22:13] LABS: GFR AFRICAN-AMERICAN > 60; GFR NON-AFRICAN AMERICAN > 60
[2017-02-02 22:14] LABS: ALT/SGPT 24 U/L (9-52); AST/SGOT 12 U/L (14-36); BLOOD UREA NITROGEN 10 mg/dL (7-17); CALCIUM 8.7 mg/dl (8.6-10.4); LIPASE 22 U/L (23-300)
--- NOTE | 2017-02-02 23:10 | C.PDOC ---
History Of Present Illness 21 year old female who presents to the ER with a complaint of suprapubic pain, nausea, and vomiting today a few hours prior to arrival. Patient has had multiple visits in the past for similar pain. Denies fever or chills. Patient has recently had 2 Ct abd/pel that show only thickened small bowel loops. Has been referred to GI but had difficulty making appts due to insurance issues. Ate a bagel for breakfast and 2 cheesburgers for lunch. Was not taking NSAIDS for symptomatic relief for ? reasons. Time Seen by Provider: 02/02/17 21:44 Chief Complaint (Nursing): Abdominal Pain History Per: Patient History/Exam Limitations: no limitations Onset/Duration Of Symptoms: Hrs Current Symptoms Are (Timing): Still Present Location Of Pain/Discomfort: LLQ Radiation Of Pain To:: None Quality Of Discomfort: Unable To Describe Associated Symptoms: denies: Fever, Chills Exacerbating Factors: None Alleviating Factors: None Recent travel outside of the [place]: No Abnormal Vaginal Bleeding: No Past Medical History Reviewed: Historical Data, Nursing Documentation, Vital Signs Vital Signs: Last Vital Signs Temp 98.1 F 02/02/17 23:53 Pulse 84 02/02/17 23:53 Resp 16 02/02/17 23:53 BP 112/74 02/02/17 23:53 Pulse Ox 100 02/02/17 23:53 - Medical History PMH: No Chronic Diseases Surgical History: No Surg Hx Family History: States: Unknown Family Hx - Social History Hx Tobacco Use: No Hx Alcohol Use: Yes (occasional) Hx Substance Use: No - Immunization History Hx Tetanus Toxoid Vaccination: No Hx Influenza Vaccination: No Hx Pneumococcal Vaccination: No Review Of Systems Constitutional: Negative for: Fever, Chills Gastrointestinal: Positive for: Nausea, Vomiting, Abdominal Pain Physical Exam - Physical Exam Appears: Non-toxic, No Acute Distress Skin: Normal Color, Warm, Dry Head: Atraumatic, Normacephalic Oral Mucosa: Moist Chest: Symmetrical, No Tenderness Cardiovascular: Rhythm Regular, No Murmur Respiratory: Normal Breath Sounds, No Rales, No Rhonchi, No Wheezing Gastrointestinal/Abdominal: Soft, Tenderness (LLQ), Other (Dull to percussion laterally, tympanic to epigastric) Neurological/Psych: Oriented x3, Normal Speech, Normal Cognition ED Course And Treatment - Laboratory Results Result Diagrams: 02/02/17 21:58 02/02/17 21:58 Urine POC: Negative O2 Sat by Pulse Oximetry: 98 (Room air) Pulse Ox Interpretation: Normal Progress Note: Abdominal CT ordered. Pepcid, toradol, zofran, and IV fluids administered. Reevaluation Time: 23:50 Reassessment Condition: Improved (mild residual pain, belly benign) Medical Decision Making Medical Decision Making: LOW suspicion of Crohn's as pt without diarrha mild elev WBC's may be related to vomiting earlier or mild enteritis iliitis noted on CT's 11/09, 11/12. LOW susp of AP today defer repeat CT abd for 2 CT's done in past few months without significant findings Symptomatic treatment and outpatient f/u w PMD Disposition Doctor Will See Patient In The: Office Counseled Patient/Family Regarding: Studies Performed, Diagnosis - Disposition Referrals: [facility] [Outside] [facility] [Outside] Darian Frias MD [Staff Provider] - Disposition: HOME/ ROUTINE Disposition Time: 23:35 Condition: GOOD Additional Instructions: contiue diet high in fruits and vegetables drink plenty of water Avoid bread for now, low suspicion of celiac disease rice, potato are ok Motrin 400-600 mg every 6 hours as needed for belly pain pepcid 20 mg @ night to help prevent stomach irritation from the Motrin Follow-up with Gastroenterology or our Clinic for referal as needed Instructions: Enteritis (ED) Forms: [facility] (Lao) - Clinical Impression Clinical Impression: Enteritis - Scribe Statement The provider has reviewed the documentation as recorded by the Scribmelvin Hays All medical record entries made by the Scribe were at my direction and personally dictated by me. I have reviewed the chart and agree that the record accurately reflects my personal performance of the history, physical exam, medical decision making, and the department course for this patient. I have also personally directed, reviewed, and agree with the discharge instructions and disposition.
[2017-02-02 23:55] VITALS: BP 112/74; PULSE 84; RESP 16; TEMP 98.1
[2017-02-03 00:20] VITALS: O2SAT 98
--- NOTE | 2017-02-03 11:01 | RAD ---
PROCEDURE: Radiographs of the chest and abdomen (obstructive series) HISTORY: abd pain COMPARISON: No prior. TECHNIQUE: AP radiograph of the chest, with upright and supine radiographs of the abdomen. FINDINGS: CHEST: Lungs: The lungs are well inflated and clear. Cardiovascular: Normal size heart. No pulmonary vascular congestion. Pleura: No pleural fluid. No pneumothorax. Other findings: None. ABDOMEN AND PELVIS: Bowel: There are gas-filled small bowel lobes in the left upper quadrant and mid abdomen. No evidence of mechanical obstruction. Free air: None. Bones: Unremarkable. Other findings: None. IMPRESSION: Gas-filled small bowel loops. Nonobstructive bowel-gas pattern. Clear lungs.
== END 2017-02-02 23:58 | disposition home or self-care (01) ==
LOC: C.ER 20:38
DX: K52.9 Noninfective gastroenteritis and colitis, unspecified (principal)
CPT/HCPCS: 74022; 80053; 81001; 83690; 84703; 85025; 96361; 96374; 96375; 99285; J1885; J2405; J7040

== ENCOUNTER 2017-03-16 13:29 | Emergency (ER) | payer MEDICAID, OTHER ==
[2017-03-16 13:29] VITALS: BMI 19.3
--- NOTE | 2017-03-16 13:57 | C.PDOC ---
History Of Present Illness 21 y/o female presents to ED with complaints of abdominal pain for one year but worsen now. Patient has multiple previous ED visits for same symptoms and last visit was admitted for Enteritis. Patient reports she has not been able to follow up with GI doctor secondary to insurance problems. Patient denies fever, chills, nausea, vomiting, diarrhea, dysuria, hematuria, vaginal bleeding or discharge. No other complaints at this time. Time Seen by Provider: 03/16/17 13:33 Chief Complaint (Nursing): Abdominal Pain History Per: Patient History/Exam Limitations: no limitations Onset/Duration Of Symptoms: Days Current Symptoms Are (Timing): Still Present Past Medical History Reviewed: Historical Data, Nursing Documentation, Vital Signs Vital Signs: Last Vital Signs Temp 98.1 F 03/16/17 13:40 Pulse 78 03/16/17 16:09 Resp 18 03/16/17 16:09 BP 114/73 03/16/17 16:09 Pulse Ox 100 03/16/17 16:09 - Medical History PMH: Gastritis Surgical History: No Surg Hx Family History: States: No Known Family Hx - Social History Hx Tobacco Use: No Hx Alcohol Use: Yes (occasional) Hx Substance Use: No - Immunization History Hx Tetanus Toxoid Vaccination: No Hx Influenza Vaccination: No Hx Pneumococcal Vaccination: No Review Of Systems Except As Marked, All Systems Reviewed And Found Negative. Constitutional: Negative for: Fever, Chills Gastrointestinal: Positive for: Abdominal Pain. Negative for: Nausea, Vomiting , Diarrhea Genitourinary: Negative for: Dysuria, Frequency, Hematuria, Vaginal Discharge, Vaginal Bleeding Skin: Negative for: Rash Physical Exam - Physical Exam Appears: Non-toxic, No Acute Distress Skin: Normal Color, Warm, Dry, No Rash Head: Atraumatic, Normacephalic Eye(s): bilateral: Normal Inspection Oral Mucosa: Moist Neck: Normal ROM, Supple Chest: Symmetrical Cardiovascular: Rhythm Regular, No Murmur Respiratory: Normal Breath Sounds, No Rales, No Rhonchi, No Wheezing Gastrointestinal/Abdominal: Soft, Tenderness (mild to suprapubic area), No Guarding, No Rebound Back: No CVA Tenderness, No Paraspinal Tenderness Neurological/Psych: Oriented x3 ED Course And Treatment - Laboratory Results Result Diagrams: 03/16/17 14:09 03/16/17 14:09 O2 Sat by Pulse Oximetry: 98 (RA) Pulse Ox Interpretation: Normal Medical Decision Making Medical Decision Making: Plan: * Ultrasound * blood work * UA * ct again shows enterits. discussed results in detail with pt. antibiotics dosed. offered admission for gi eval, but pt asking for d/c. asked pt to f/u with gi as outpt. pt verbalizes understanding. Disposition - Disposition Referrals: Jovanny Vega MD [Staff Provider] - [facility] [Outside] [facility] [Outside] Disposition: HOME/ ROUTINE Disposition Time: 19:25 Condition: STABLE Additional Instructions: please follow up with your doctor/specialist. return to er with worsening symptoms or concerns Prescriptions: Cefpodoxime [Vantin] 100 mg PO BID #14 tab metroNIDAZOLE [Flagyl] 500 mg PO TID #21 tab Instructions: Colitis (ED) Forms: [facility] (Kiswahili) - Clinical Impression Clinical Impression: Enteritis - Scribe Statement The provider has reviewed the documentation as recorded by the Sheilaibmelvin Hagan All medical record entries made by the Jaylene were at my direction and personally dictated by me. I have reviewed the chart and agree that the record accurately reflects my personal performance of the history, physical exam, medical decision making, and the department course for this patient. I have also personally directed, reviewed, and agree with the discharge instructions and disposition.
[2017-03-16 14:15] LABS: BASO # 0.1 K/uL (0.0-0.2); BASO % 0.4 % (0.0-2.0); EOS # 0.3 K/uL (0.0-0.7); EOS % 2.2 % (0.0-4.0); HEMATOCRIT 28.3 % (34.0-47.0); LYMPH # 2.9 K/uL (1.0-4.3); LYMPH % 19.7 % (20.0-40.0); MEAN CELL VOLUME 73.5 fL (81.0-99.0); MEAN CORPUSCULAR HEMOGLOBIN 23.7 pg (27.0-31.0); MEAN CORPUSCULAR HGB CONC 32.2 g/dL (33.0-37.0); MONO # 1.2 K/uL (0.0-0.8); MONO % 7.8 % (0.0-10.0); RED CELL DISTRIBUTION WIDTH 15.2 % (11.5-14.5); WHITE BLOOD COUNT 14.8 K/uL (4.8-10.8)
[2017-03-16 14:24] LABS: INR 1.3
[2017-03-16 14:29] LABS: ALKALINE PHOSPHATASE 61 U/L (38-126); ALT/SGPT 22 U/L (9-52); AST/SGOT 15 U/L (14-36); BILIRUBIN,TOTAL 0.3 mg/dL (0.2-1.3); BLOOD UREA NITROGEN 8 mg/dL (7-17); CALCIUM 9.1 mg/dl (8.6-10.4); CARBON DIOXIDE 25 mmol/L (22-30); CHLORIDE 101 mmol/L (98-107); GFR AFRICAN-AMERICAN > 60; GLUCOSE,RANDOM 89 mg/dL (65-105); POTASSIUM 3.8 mmol/L (3.6-5.2); SODIUM 140 mmol/L (132-148); TOTAL PROTEIN 7.2 g/dL (6.3-8.3)
[2017-03-16 14:51] LABS: RBC URINE 3 /hpf (0-3); URINE BILIRUBIN NEGATIVE (NEGATIVE); URINE BLOOD NEGATIVE (NEGATIVE); URINE COLOR Yellow (YELLOW); URINE GLUCOSE (UA) NORMAL (Normal); URINE KETONE NEGATIVE (NEGATIVE); URINE LEUKOCYTE ESTERASE NEG Leu/uL (Negative); URINE PROTEIN 1+ mg/dL (NEGATIVE); URINE UROBILINOGEN NORMAL mg/dL (0.2-1.0); WBC URINE 2 /hpf (0-5)
--- NOTE | 2017-03-16 16:08 | US ---
HISTORY: Right adnexal pain. LMP 02/21/2017. COMPARISON: None available. TECHNIQUE: Transabdominal, transvaginal. Real -time technique with 2D, duplex and color Doppler. FINDINGS: UTERUS: Measures 3.3 x 4 x 8.1 cm. Normal in size and appearance. No fibroid or other mass lesion seen. ENDOMETRIUM: Measures 8.0 mm in diameter. No ultrasound findings to suggest gestational sac, fluid, debris, mass or polyp or other pathologic process within the endometrium. CERVIX: No cervical abnormality identified. RIGHT OVARY: Measures 2.7 x 2.7 x 4.1 cm. No solid mass. Normal flow. Multiple subcentimeter follicles. In addition, there is a complex cyst come obtaining fluid and debris. LEFT OVARY: Measures 2.1 x 2.5 x 3.2 cm. No solid mass. Normal flow. Multiple subcentimeter follicles. FREE FLUID: Free fluid identified in the cul-de-sac, about the adnexa and tracking toward the liver. OTHER FINDINGS: None. IMPRESSION: No evidence of adnexal torsion. Multiple subcentimeter follicles bilaterally. Complex cysts right adnexa I 1.8 x 2.1 x 2 cm. Incompletely visualized free fluid in the pelvis/ cul-de-sac and along the right pericolic gutter.
[2017-03-16 16:09] VITALS: RESP 18
[2017-03-16] MEDS ORDERED: Iohexol 350mg/ml 100 ML ONE (16:38)
--- NOTE | 2017-03-16 17:51 | CT ---
PROCEDURE: CT Abdomen and Pelvis with contrast HISTORY: lower abdominal pain. By history, negative test (concurrent with this examination). COMPARISON: 11/09/2016 and 11/12/2016. Summary of findings on the comparison examination: Severe enteritis, nonspecific. March 16, 2017. Pelvic ultrasound TECHNIQUE: Contrast dose: 100 cc Omnipaque 350. Radiation dose: Total exam DLP = 208.83 mGy-cm. This CT exam was performed using one or more of the following dose reduction techniques: Automated exposure control, adjustment of the mA and/or kV according to patient size, and/or use of iterative reconstruction technique. FINDINGS: LOWER THORAX: Unremarkable. LIVER: Unremarkable. No gross lesion or ductal dilatation. GALLBLADDER AND BILE DUCTS: Unremarkable. PANCREAS: Unremarkable. No gross lesion or ductal dilatation. SPLEEN: Unremarkable. ADRENALS: Unremarkable. No mass. KIDNEYS AND URETERS: Unremarkable. No hydronephrosis. No solid mass. VASCULATURE: Unremarkable. No aortic aneurysm. BOWEL: Severe enteritis primarily affecting distal ileum. Inflammatory changes are confined to the right lower quadrant and pelvic loops of small bowel. Similar findings with respect to degree and distribution were identified on the prior performed in November 2016. . APPENDIX: A normal appendix is not visualized. The inflammatory changes in the right lower quadrant obscure normal tissue planes. PERITONEUM: Trace free fluid identified in the pelvis/cul de sac. No free air or drainable collection. LYMPH NODES: Unremarkable. No enlarged lymph nodes. BLADDER: Unremarkable. REPRODUCTIVE: Unremarkable. BONES: No acute fracture. OTHER FINDINGS: None. IMPRESSION: Severe inflammatory changes right lower quadrant and pelvis likely representing severe ileitis. No evidence of free air, loculated air or drainable collection. Similar distribution to this inflammatory process noted previously. There is no evidence of proximal bowel obstruction. Limitations of the current examination: Absence of oral contrast in this particular setting given this body habitus and BMI.
[2017-03-16] MEDS ORDERED: Piperacillin/Tazobact 3.375 gm 100 ML IVPB STA (18:42)
[2017-03-16] MEDS ORDERED: Piperacillin/Tazobact 3.375 gm 100 ML IVPB ONE (18:55)
[2017-03-16 19:27] VITALS: BP 118/73; PULSE 91; TEMP 99.2
[2017-03-16 19:28] VITALS: O2SAT 98
== END 2017-03-16 19:53 | disposition home or self-care (01) ==
LOC: C.ER 13:29
DX: K52.9 Noninfective gastroenteritis and colitis, unspecified (principal)
CPT/HCPCS: 74177; 76830; 76856; 80053; 81001; 83690; 84703; 85025; 85610; 85730; 96365; 96375; 99284; J1885; J2543; Q9967

== ENCOUNTER 2017-03-28 20:26 | Inpatient (IN) | payer MEDICAID, OTHER ==
[2017-03-28] MEDS ORDERED: Sodium Chloride 0.9% 1,000 ML IV ONE (21:01)
--- NOTE | 2017-03-28 21:01 | C.PDOC ---
History Of Present Illness Patient is a 21 y/o F with abdominal pain. She reports months long history of abdominal pain. She was evaluated in ED on 03/16 and was diagnosed with severe ileitis and discharged on flagyl and vantin. She followed up and saw Dr. Vega who recommended endoscopy and colonoscopy. Patient reports that she has been taking her outpatient medication but has had persistent pain, weight loss and vomiting. Time Seen by Provider: 03/28/17 20:37 Chief Complaint (Nursing): Abdominal Pain Past Medical History Vital Signs: Last Vital Signs Temp 99.1 F 03/28/17 20:40 Pulse 118 H 03/28/17 20:40 Resp 16 03/28/17 20:40 BP 114/73 03/28/17 20:40 Pulse Ox 98 03/28/17 22:10 - Medical History PMH: Gastritis Family History: States: Unknown Family Hx - Social History Hx Tobacco Use: No Hx Alcohol Use: Yes (occasional) Hx Substance Use: No - Immunization History Hx Tetanus Toxoid Vaccination: No Hx Influenza Vaccination: No Hx Pneumococcal Vaccination: No Review Of Systems Constitutional: Positive for: Malaise, Weight loss. Negative for: Fever, Chills Cardiovascular: Negative for: Chest Pain, Palpitations, Edema, Light Headedness Respiratory: Negative for: Cough, Shortness of Breath, SOB with Excertion, Wheezing Gastrointestinal: Positive for: Nausea, Vomiting, Abdominal Pain. Negative for : Diarrhea, Constipation Genitourinary: Negative for: Dysuria, Frequency, Hematuria, Vaginal Discharge, Vaginal Bleeding Neurological: Negative for: Weakness, Numbness Physical Exam - Physical Exam Appears: Well, Non-toxic, Other (pale) Head: Atraumatic, Normacephalic Cardiovascular: Rhythm Regular Respiratory: Normal Breath Sounds, No Rales, No Rhonchi, No Wheezing Gastrointestinal/Abdominal: Soft, Tenderness (scant), No Distention Back: Normal Inspection, No CVA Tenderness Extremity: Normal ROM Neurological/Psych: Oriented x3 Gait: Steady ED Course And Treatment - Laboratory Results Result Diagrams: 03/28/17 21:09 03/28/17 21:56 O2 Sat by Pulse Oximetry: 98 Medical Decision Making Medical Decision Making: Will get labs, give IVF and admit for further GI workup as failed outpatient therapy and needs further GI workup. 10:09PM Labs reviewed. [facility] to be [facility]sx observation with Dr. Vega on consult Disposition - Disposition Disposition: HOSPITALIZED Disposition Time: 22:42 Condition: FAIR - Clinical Impression Clinical Impression: Ileitis, Abdominal pain
[2017-03-28 21:08] LABS: MAGNESIUM 1.9 mg/dL (1.6-2.3); PHOSPHOROUS 3.3 mg/dL (2.5-4.5)
[2017-03-28 21:12] LABS: BASO % 0.4 % (0.0-2.0); EOS # 0.1 K/uL (0.0-0.7); EOS % 1.2 % (0.0-4.0); HEMATOCRIT 27.6 % (34.0-47.0); LYMPH # 2.1 K/uL (1.0-4.3); LYMPH % 20.7 % (20.0-40.0); MEAN CELL VOLUME 71.5 fL (81.0-99.0); MEAN CORPUSCULAR HEMOGLOBIN 23.6 pg (27.0-31.0); MEAN CORPUSCULAR HGB CONC 33.1 g/dL (33.0-37.0); MEAN PLATELET VOLUME 7.1 fL (7.2-11.7); MONO # 0.6 K/uL (0.0-0.8); MONO % 6.4 % (0.0-10.0); RED CELL DISTRIBUTION WIDTH 15.7 % (11.5-14.5); WHITE BLOOD COUNT 10.1 K/uL (4.8-10.8)
[2017-03-28 21:25] LABS: RBC URINE 3 /hpf (0-3); URINE BACTERIA OCC (<OCC); URINE BILIRUBIN NEGATIVE (NEGATIVE); URINE BLOOD NEGATIVE (NEGATIVE); URINE COLOR Yellow (YELLOW); URINE GLUCOSE (UA) NORMAL (Normal); URINE KETONE TRACE mg/dL (NEGATIVE); URINE LEUKOCYTE ESTERASE TRACE Leu/uL (Negative); URINE PROTEIN NEGATIVE (NEGATIVE); URINE UROBILINOGEN NORMAL mg/dL (0.2-1.0); WBC URINE 4 /hpf (0-5)
[2017-03-28 22:01] LABS: CHLORIDE 98 mmol/L (98-107)
[2017-03-28 22:02] LABS: SODIUM 138 mmol/L (132-148)
[2017-03-28 22:04] LABS: ALB/GLOB RATIO 0.9 (1.0-2.1); ALKALINE PHOSPHATASE 50 U/L (38-126); AST/SGOT 17 U/L (14-36); BILIRUBIN,TOTAL 0.5 mg/dL (0.2-1.3); BLOOD UREA NITROGEN 10 mg/dL (7-17); CARBON DIOXIDE 24 mmol/L (22-30); GFR AFRICAN-AMERICAN > 60; GLUCOSE,RANDOM 92 mg/dL (65-105); TOTAL PROTEIN 7.6 g/dL (6.3-8.3)
[2017-03-28 22:05] LABS: ALT/SGPT 16 U/L (9-52); CALCIUM 9.3 mg/dl (8.6-10.4)
[2017-03-28] MEDS ORDERED: Sodium Chloride 0.9% 1,000 ML ONE (22:12)
[2017-03-29] MEDS: Potassium Chloride 20 MEQ in Dextrose 5%/0.45% NS 1,000 ML IV SCH ×4 (00:45→22:39)
--- NOTE | 2017-03-29 02:05 | CP.PCM.HP ---
History of Present Illness - History of Present Illness History of Present Illness: 21 yo F with a PMHx of iron deficiency anemia presented to the ED for rated 10/ 10 periumbilical abdominal pain that's been ongoing for the past 1 year. Associated symptoms include nausea, non-bloody/non-bilious vomiting, 40lb weight loss in the last 4 months, and intermittent lower extremity swelling bilaterally. She states the vomiting begins a few minutes after she eats and is the consistency of her previous meal. She takes tylenol and pepcid for her abdominal pain with minor relief. She's had many previous ED visits for the same complaint. Her last visit was on 03/16/17, she was diagnosed with severe ileitis and discharged on flagyl and vantin and told to follow up with GI specialist, Dr Vega. Patient states she followed up with Dr Vega who recommended endoscopy and colonoscopy. She denies diarrhea, hematochezia, or hematemesis. 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 absent: Chills, Fever, Headache Additional comments: 40 lb weight loss in last 4 months - EENT Eyes: absent: Change in Vision Ears: absent: Abnormal Hearing Nose/Mouth/Throat: absent: Nasal Discharge - Cardiovascular Cardiovascular: Pedal Edema. absent: Chest Pain, Palpitations - Respiratory Respiratory: absent: Cough, Dyspnea, Hemoptysis - Gastrointestinal Gastrointestinal: Abdominal Pain, Nausea, Vomiting. absent: Constipation, Diarrhea, Hematemesis, Hematochezia - Genitourinary Genitourinary: absent: Dysuria, Flank Pain - Reproductive: Female Reproductive:Female: Normal Menses - Musculoskeletal Musculoskeletal: absent: Back Pain - Integumentary Integumentary: absent: Rash - Neurological Neurological: absent: Confusion, Dizziness - Hematologic/Lymphatic Hematologic: absent: Easy Bleeding Past Patient History - Infectious Disease Hx of Infectious Diseases: None - Past Medical History & Family History Past Medical History?: No - Past Social History Smoking Status: Light Smoker < 10 Cigarettes Daily - MUSCULOSKELETAL/RHEUMATOLOGICAL Hx Falls: No - GASTROINTESTINAL Hx Gastritis: Yes - PSYCHIATRIC Hx Substance Use: No - SURGICAL HISTORY Hx Surgeries: No - ANESTHESIA Hx Anesthesia: No Meds Allergies/Adverse Reactions: Allergies Allergy/AdvReac Type Severity Reaction Status Date / Time No Known Allergies Allergy Verified 03/28/17 20:43 Physical Exam - Constitutional Appears: Well, Non-toxic, No Acute Distress - Head Exam Head Exam: ATRAUMATIC, NORMAL INSPECTION - Eye Exam Eye Exam: EOMI Pupil Exam: PERRL - ENT Exam ENT Exam: Mucous Membranes Moist - Neck Exam Neck exam: Positive for: Normal Inspection. Negative for: Lymphadenopathy - Respiratory Exam Respiratory Exam: Clear to Auscultation Bilateral, NORMAL BREATHING PATTERN. absent: Rales, Rhonchi, Wheezes - Cardiovascular Exam Cardiovascular Exam: REGULAR RHYTHM, +S1, +S2. absent: Tachycardia, Systolic Murmur - GI/Abdominal Exam GI & Abdominal Exam: Normal Bowel Sounds, Soft, Tenderness. absent: Distended, Guarding, Rebound Additional comments: tenderness to palpation in periumbilical region - Rectal Exam Rectal Exam: Deferred - Extremities Exam Extremities exam: Positive for: pedal edema, pedal pulses present - Neurological Exam Neurological exam: Alert, Oriented x3 - Psychiatric Exam Psychiatric exam: Normal Affect, Normal Mood - Skin Skin Exam: Dry, Intact, Normal Color, Warm Results - Vital Signs Recent Vital Signs: Last Vital Signs Temp 98.6 F 03/28/17 23:37 Pulse 92 H 03/28/17 23:37 Resp 18 03/28/17 23:37 BP 103/60 03/28/17 23:37 Pulse Ox 99 03/28/17 23:37 - Labs Result Diagrams: 03/28/17 21:09 03/28/17 21:56 Labs: Laboratory Results - last 24 hr 03/28/17 03/28/17 03/28/17 20:50 20:55 21:09 WBC 10.1 RBC 3.86 Hgb 9.1 L Hct 27.6 L MCV 71.5 L D MCH 23.6 L MCHC 33.1 RDW 15.7 H Plt Count 621 H D MPV 7.1 L Neut % (Auto) 71.3 Lymph % (Auto) 20.7 [place] % (Auto) 6.4 Eos % (Auto) 1.2 Baso % (Auto) 0.4 Neut # 7.2 H Lymph # 2.1 [place] # 0.6 Eos # 0.1 Baso # 0.0 Differential Comment Sodium Potassium Chloride Carbon Dioxide Anion Gap BUN Creatinine Est GFR ( Amer) Est GFR (Non-Af Amer) Random Glucose Calcium Phosphorus 3.3 Magnesium 1.9 Total Bilirubin AST ALT Alkaline Phosphatase Total Protein Albumin Globulin Albumin/Globulin Ratio Lipase 29 Urine Color Yellow Urine Clarity Clear Urine pH 7.0 Ur Specific [place] 1.025 Urine Protein Negative Urine Glucose (UA) Normal Urine Ketones Trace Urine Blood Negative Urine Nitrate Negative Urine Bilirubin Negative Urine Urobilinogen Normal Ur Leukocyte Esterase Trace Urine WBC (Auto) 4 Urine RBC (Auto) 3 Ur Squamous Epith Cells 1 Urine Bacteria Occ H 03/28/17 21:56 WBC RBC Hgb Hct MCV MCH MCHC RDW Plt Count MPV Neut % (Auto) Lymph % (Auto) [place] % (Auto) Eos % (Auto) Baso % (Auto) Neut # Lymph # [place] # Eos # Baso # Differential Comment Sodium 138 Potassium 4.0 Chloride 98 Carbon Dioxide 24 Anion Gap 20 BUN 10 Creatinine 0.6 L Est GFR ( Amer) > 60 Est GFR (Non-Af Amer) > 60 Random Glucose 92 Calcium 9.3 Phosphorus Magnesium Total Bilirubin 0.5 AST 17 ALT 16 Alkaline Phosphatase 50 Total Protein 7.6 Albumin 3.7 Globulin 3.9 Albumin/Globulin Ratio 0.9 L Lipase Urine Color Urine Clarity Urine pH Ur Specific [place] Urine Protein Urine Glucose (UA) Urine Ketones Urine Blood Urine Nitrate Urine Bilirubin Urine Urobilinogen Ur Leukocyte Esterase Urine WBC (Auto) Urine RBC (Auto) Ur Squamous Epith Cells Urine Bacteria Assessment & Plan (1) Ileitis Assessment and Plan: Severe ileitis on prior CT, (+) N/V, abdominal pain, 40lb weight loss negative celiac serology markers GI consulted, Dr Vega, for possible colonoscopy and biopsy ESR, CRP markers ordered, F/U fecal leukocytes, ova and parasite, stool culture, FOBT ordered, F/U Status: Acute (2) Iron deficiency anemia Assessment and Plan: suspected iron deficiency anemia, Hg 9.1 on admission, normal menses serum iron, TIBC, ferritin ordered, F/U Status: Acute (3) Prophylactic measure Assessment and Plan: DVT: not indicated GI: protonix 40mg po daily Diet: NPO for possible colonoscopy in AM Fluids: Dextrose 5%/half NS at 100cc/hr Status: Acute
--- NOTE | 2017-03-29 04:17 | CP.PCM.PN ---
Subjective - Date & Time of Evaluation Date of Evaluation: 03/28/17 Time of Evaluation: 22:15 - Subjective Subjective: Assessment * History of terminal small bowel inflammation with c/o frequent vomiting after food with weight loss or 40lbs in 4 months 1/3 of patients weight, with nutritional deficiencies, gradual symptoms for last 1month suspected inflammatory bowel disease, negative Celiac serology markers Plan * GI eval for possible colonoscopy and biopsy * NPO for possible endoscopy * ESR CRP, stool w/u * GI prophylaxis Objective - Vital Signs/Intake and Output Vital Signs (last 24 hours): Temp Pulse Resp BP Pulse Ox 98.9 F 93 H 20 101/63 99 03/29/17 00:15 03/29/17 00:15 03/29/17 03:10 03/29/17 00:15 03/29/17 00:15 - Medications Medications: Current Medications Potassium Chloride 20 meq/ (Dextrose/Sodium Chloride) 1,010 mls @ 100 mls/hr IV .Q10H6M [facility] Last Admin: 03/29/17 00:45 Dose: 100 mls/hr Influenza Virus Vaccine (Afluria) 45 mcg IM .ONCE ONE Stop: 04/01/17 10:01 Ondansetron HCl (Zofran Inj) 4 mg IVP Q4H PRN PRN Reason: Nausea/Vomiting Pneumococcal Polyvalent Vaccine (Pneumovax 23 Vaccine) 0.5 ml IM .ONCE ONE Stop: 04/01/17 10:01 - Labs Labs: 03/28/17 21:09 03/28/17 21:56
[2017-03-29 07:43] LABS: IRON 11 ug/dL (37-170)
--- NOTE | 2017-03-29 09:00 | CP.PCM.CON ---
History of Present Illness - History of Present Illness History of Present Illness: PGY4 Initial GI Note Tino Hinds is a 21F w/ no sig hx who presents with abd pain in the RLQ. Pt states that she was recently admitted for similar complaint 1 week ago. At the time she was found to have ileitis, discharged on abx, and was told to follow up with GI as an outpt. Pt attempted to go to GI to follow-up but did not have any health insurance. It was recommended that the pt go to ER with the pain reoccurs. Pt states that her pain has been present for years. She states that her pain is mostly located in RLQ and she describes it as sharp and non- radiating. She states that it peaked at 10 out of 10 and cannot recall any alleviating or aggregating factors. She states that it occurs on a daily basis incidiously. She states that she has daily BM. Denies any previous episode of BRBPR, melena, hematemesis, or coffee-ground emesis. Denies any fever, chills or diaphoresis. Denies any recent travel. 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 FamHx: Grandmother with DM2, HTN; no history of colon cancer in family or bowel related diseases ROS: 12 point ROS conducted, neg other than above Past Patient History - Infectious Disease Hx of Infectious Diseases: None - Past Medical History & Family History Past Medical History?: No - Past Social History Smoking Status: Light Smoker < 10 Cigarettes Daily - CARDIAC Hx Cardiac Disorders: No - PULMONARY Hx Respiratory Disorders: No - NEUROLOGICAL Hx Neurological Disorder: No - HEENT Hx HEENT Problems: No - RENAL Hx Chronic Kidney Disease: No - ENDOCRINE/METABOLIC Hx Endocrine Disorders: No - HEMATOLOGICAL/ONCOLOGICAL Hx Blood Disorders: No - INTEGUMENTARY Hx Dermatological Problems: No - MUSCULOSKELETAL/RHEUMATOLOGICAL Hx Falls: No - GASTROINTESTINAL Hx Gastritis: Yes - GENITOURINARY/GYNECOLOGICAL Hx Genitourinary Disorders: No - PSYCHIATRIC Hx Substance Use: No - SURGICAL HISTORY Hx Surgeries: No - ANESTHESIA Hx Anesthesia: No Meds Allergies/Adverse Reactions: Allergies Allergy/AdvReac Type Severity Reaction Status Date / Time No Known Allergies Allergy Verified 03/28/17 20:43 - Medications Medications: Current Medications Potassium Chloride 20 meq/ (Dextrose/Sodium Chloride) 1,010 mls @ 100 mls/hr IV .Q10H6M [facility] Last Admin: 03/29/17 00:45 Dose: 100 mls/hr Ondansetron HCl (Zofran Inj) 4 mg IVP Q4H PRN PRN Reason: Nausea/Vomiting Pantoprazole Sodium (Protonix Ec Tab) 40 mg PO DAILY [facility] Pneumococcal Polyvalent Vaccine (Pneumovax 23 Vaccine) 0.5 ml IM .ONCE ONE Stop: 04/01/17 10:01 Physical Exam - Constitutional Appears: Well, Non-toxic, No Acute Distress - Head Exam Head Exam: ATRAUMATIC, NORMOCEPHALIC - Eye Exam Eye Exam: Normal appearance - ENT Exam ENT Exam: Mucous Membranes Moist - Respiratory Exam Respiratory Exam: Clear to Auscultation Bilateral, NORMAL BREATHING PATTERN. absent: Rales, Rhonchi, Wheezes, Respiratory Distress - Cardiovascular Exam Cardiovascular Exam: REGULAR RHYTHM, +S1, +S2 - GI/Abdominal Exam GI & Abdominal Exam: Normal Bowel Sounds, Soft. absent: Guarding, Organomegaly , Rebound - Neurological Exam Neurological exam: Alert, Oriented x3 - Psychiatric Exam Psychiatric exam: Normal Affect, Normal Mood - Skin Skin Exam: Dry, Intact, Normal Color, Warm Results - Vital Signs Recent Vital Signs: Last Vital Signs Temp 98.9 F 03/29/17 00:15 Pulse 93 H 03/29/17 00:15 Resp 20 03/29/17 03:10 BP 101/63 03/29/17 00:15 Pulse Ox 99 03/29/17 00:15 - Labs Result Diagrams: 03/28/17 21:09 03/28/17 21:56 Labs: Laboratory Results - last 24 hr 03/28/17 03/28/17 03/28/17 20:50 20:55 21:09 WBC 10.1 RBC 3.86 Hgb 9.1 L Hct 27.6 L MCV 71.5 L D MCH 23.6 L MCHC 33.1 RDW 15.7 H Plt Count 621 H D MPV 7.1 L Neut % (Auto) 71.3 Lymph % (Auto) 20.7 [place] % (Auto) 6.4 Eos % (Auto) 1.2 Baso % (Auto) 0.4 Neut # 7.2 H Lymph # 2.1 [place] # 0.6 Eos # 0.1 Baso # 0.0 Differential Comment ESR Sodium Potassium Chloride Carbon Dioxide Anion Gap BUN Creatinine Est GFR ( Amer) Est GFR (Non-Af Amer) Random Glucose Calcium Phosphorus 3.3 Magnesium 1.9 Iron TIBC % Saturation Ferritin Total Bilirubin AST ALT Alkaline Phosphatase C-React Prot High Sens Total Protein Albumin Globulin Albumin/Globulin Ratio Lipase 29 Urine Color Yellow Urine Clarity Clear Urine pH 7.0 Ur Specific [place] 1.025 Urine Protein Negative Urine Glucose (UA) Normal Urine Ketones Trace Urine Blood Negative Urine Nitrate Negative Urine Bilirubin Negative Urine Urobilinogen Normal Ur Leukocyte Esterase Trace Urine WBC (Auto) 4 Urine RBC (Auto) 3 Ur Squamous Epith Cells 1 Urine Bacteria Occ H 03/28/17 03/29/17 03/29/17 21:56 06:43 06:43 WBC RBC Hgb Hct MCV MCH MCHC RDW Plt Count MPV Neut % (Auto) Lymph % (Auto) [place] % (Auto) Eos % (Auto) Baso % (Auto) Neut # Lymph # [place] # Eos # Baso # Differential Comment ESR 75 H Sodium 138 Potassium 4.0 Chloride 98 Carbon Dioxide 24 Anion Gap 20 BUN 10 Creatinine 0.6 L Est GFR ( Amer) > 60 Est GFR (Non-Af Amer) > 60 Random Glucose 92 Calcium 9.3 Phosphorus Magnesium Iron TIBC % Saturation Ferritin Total Bilirubin 0.5 AST 17 ALT 16 Alkaline Phosphatase 50 C-React Prot High Sens > 15.00 H Total Protein 7.6 Albumin 3.7 Globulin 3.9 Albumin/Globulin Ratio 0.9 L Lipase Urine Color Urine Clarity Urine pH Ur Specific [place] Urine Protein Urine Glucose (UA) Urine Ketones Urine Blood Urine Nitrate Urine Bilirubin Urine Urobilinogen Ur Leukocyte Esterase Urine WBC (Auto) Urine RBC (Auto) Ur Squamous Epith Cells Urine Bacteria 03/29/17 03/29/17 06:43 06:43 WBC RBC Hgb Hct MCV MCH MCHC RDW Plt Count MPV Neut % (Auto) Lymph % (Auto) [place] % (Auto) Eos % (Auto) Baso % (Auto) Neut # Lymph # [place] # Eos # Baso # Differential Comment ESR Sodium Potassium Chloride Carbon Dioxide Anion Gap BUN Creatinine Est GFR ( Amer) Est GFR (Non-Af Amer) Random Glucose Calcium Phosphorus Magnesium Iron 11 L TIBC 165 L % Saturation 7 L Ferritin 70.3 Total Bilirubin AST ALT Alkaline Phosphatase C-React Prot High Sens Total Protein Albumin Globulin Albumin/Globulin Ratio Lipase Urine Color Urine Clarity Urine pH Ur Specific [place] Urine Protein Urine Glucose (UA) Urine Ketones Urine Blood Urine Nitrate Urine Bilirubin Urine Urobilinogen Ur Leukocyte Esterase Urine WBC (Auto) Urine RBC (Auto) Ur Squamous Epith Cells Urine Bacteria Assessment & Plan - Assessment and Plan (Free Text) Assessment: Tino Hinds is a 21F w/ hx of anemia who presents with acute on chromic ZRLQ abd pain. Pt was found to have severe ilieitis on CT abd. DDx: infectious, IBD, non-specific colitis, r/o malign 1. Acute on chronic RLQ pain 2. Severe Ileitis 3. Anemia Plan: -clears for today -start on colon prep today at noon -dulcolax prior -risk and benefits explained to the pt and verbalizes understanding -waiting on cultures -NPO after midnight -Previous CT imaging reviewed -No need for additional imaging at this time Will D/W Dr. Quan
[2017-03-29 10:23] LABS: BASO % 0.4 % (0.0-2.0); EOS # 0.2 K/uL (0.0-0.7); EOS % 2.2 % (0.0-4.0); HEMATOCRIT 24.8 % (34.0-47.0); LYMPH # 2.3 K/uL (1.0-4.3); LYMPH % 28.1 % (20.0-40.0); MEAN CELL VOLUME 71.6 fL (81.0-99.0); MEAN CORPUSCULAR HEMOGLOBIN 23.5 pg (27.0-31.0); MEAN CORPUSCULAR HGB CONC 32.9 g/dL (33.0-37.0); MEAN PLATELET VOLUME 7.5 fL (7.2-11.7); MONO # 0.9 K/uL (0.0-0.8); MONO % 11.2 % (0.0-10.0); RED CELL DISTRIBUTION WIDTH 15.4 % (11.5-14.5); WHITE BLOOD COUNT 8.3 K/uL (4.8-10.8)
--- NOTE | 2017-03-29 10:43 | CP.PCM.PCO ---
Physician Communication Note - Physician Communication Note Physician Communication Note: Dr Lara is on service for GI.
[2017-03-29 10:45] LABS: CHLORIDE 108 mmol/L (98-107)
[2017-03-29 10:46] LABS: POTASSIUM 3.9 mmol/L (3.6-5.2); SODIUM 141 mmol/L (132-148)
[2017-03-29 10:48] LABS: ALB/GLOB RATIO 0.9 (1.0-2.1); ALKALINE PHOSPHATASE 44 U/L (38-126); ALT/SGPT 17 U/L (9-52); AST/SGOT 17 U/L (14-36); BILIRUBIN,TOTAL 0.3 mg/dL (0.2-1.3); BLOOD UREA NITROGEN 11 mg/dL (7-17); CARBON DIOXIDE 22 mmol/L (22-30); GFR AFRICAN-AMERICAN > 60; GLUCOSE,RANDOM 87 mg/dL (65-105); TOTAL PROTEIN 6.3 g/dL (6.3-8.3)
[2017-03-29 10:49] LABS: CALCIUM 8.1 mg/dl (8.6-10.4)
[2017-03-29] MEDS: Pantoprazole 40 mg EC Tab PO SCH (10:57)
--- NOTE | 2017-03-29 14:30 | CP.PCM.PN ---
<Anabelle Bronson - Last Filed: 03/29/17 15:45> Subjective - Date & Time of Evaluation Date of Evaluation: 03/29/17 Time of Evaluation: 10:00 - Subjective Subjective: Medicine Note for Dr. Dior Patient was seen and examined at bedside. Patient reported no acute complaints. She disclosed she has lost 40lbs in the span of 6 months, unintentional. She has been vomiting after intake of any liquids and solids, unable to keep anything down. She reported she was notified she was anemic during a visit to the [facility], where she was started on iron supplements. Denied any LOC, dizziness, syncope, or weakness. She denied any BRBPR, dark, tarry stools. Menses are regular, only using 2-3 pads per day for 3-5 days. She is sexually active with 1 partner and uses condoms every time. Denied any pap smear or STI testing. Denied fever,chills, headache, chest pain, SOB, abdominal pain, n/v/d/c, or urinary symptoms. Objective - Vital Signs/Intake and Output Vital Signs (last 24 hours): Temp Pulse Resp BP Pulse Ox 98.3 F 90 20 103/68 100 03/29/17 09:25 03/29/17 09:25 03/29/17 09:25 03/29/17 09:25 03/29/17 09:25 Intake and Output: 03/29/17 03/29/17 06:59 18:59 Intake Total 600 Balance 600 - Medications Medications: Current Medications Potassium Chloride 20 meq/ (Dextrose/Sodium Chloride) 1,010 mls @ 100 mls/hr IV .Q10H6M [facility] Last Admin: 03/29/17 10:50 Dose: 100 mls/hr Ondansetron HCl (Zofran Inj) 4 mg IVP Q4H PRN PRN Reason: Nausea/Vomiting Pantoprazole Sodium (Protonix Ec Tab) 40 mg PO DAILY [facility] Last Admin: 03/29/17 10:57 Dose: 40 mg Pneumococcal Polyvalent Vaccine (Pneumovax 23 Vaccine) 0.5 ml IM .ONCE ONE Stop: 04/01/17 10:01 - Labs Labs: 03/29/17 06:43 03/29/17 06:43 - Constitutional Appears: No Acute Distress - Head Exam Head Exam: NORMAL INSPECTION, NORMOCEPHALIC - Eye Exam Eye Exam: EOMI, Normal appearance, PERRL Pupil Exam: NORMAL ACCOMODATION - ENT Exam ENT Exam: Mucous Membranes Moist - Respiratory Exam Respiratory Exam: Clear to Ausculation Bilateral, NORMAL BREATHING PATTERN. absent: Decreased Breath Sounds - Cardiovascular Exam Cardiovascular Exam: REGULAR RHYTHM, RRR, +S1, +S2 - GI/Abdominal Exam GI & Abdominal Exam: Soft, Normal Bowel Sounds. absent: Distended, Tenderness - Neurological Exam Neurological Exam: Alert, Awake, Oriented x3 - Psychiatric Exam Psychiatric exam: Normal Affect, Normal Mood - Skin Skin Exam: Dry, Intact, Normal Color, Warm Assessment and Plan - Assessment and Plan (Free Text) Plan: (1) Ileitis Assessment and Plan: Severe ileitis on prior CT, (+) N/V, abdominal pain, 40lb weight loss over the span of 6 months negative celiac serology markers ESR -75, CRP markers - > 15.00 GI consulted, initially Dr Vega, consult changed to Dr. Garcia- help appreciated - PLAN FOR EGD TOMORROW and if necessary COLONOSCOPY WEDNESDAY F/U fecal leukocytes, ova and parasite, stool culture, FOBT ordered * Fluids: D5 1/2 NS with KCL at 100cc/hr Status: Acute (2) Iron deficiency anemia Assessment and Plan: Iron deficiency anemia Serum iron- 11, TIBC- 165, ferritin- 70.3 Hg 9.1 on admission, now 8.1 this morning 2 PRBCs on hold, if H/H continues to downtrend normal menses Pelvic and Transvaginal US performed on 02/21/17 - no fibroids noted. * Ferrlecit 125mg IVP daily x 5 days Status: Acute (3) Prophylactic measure Assessment and Plan: DVT: not indicated GI: protonix 40mg po daily Diet: CLD, NPO past midnight for EGD in AM Status: Acute DW Dr. Barby Bronson DO, PGY-1 <Wendy Dior V - Last Filed: 03/29/17 21:09> Objective - Vital Signs/Intake and Output Vital Signs (last 24 hours): Temp Pulse Resp BP Pulse Ox 99.5 F 98 H 20 106/72 97 03/29/17 16:00 03/29/17 16:00 03/29/17 16:00 03/29/17 16:00 03/29/17 16:00 Intake and Output: 03/29/17 03/30/17 18:59 06:59 Intake Total 1750 Balance 1750 - Medications Medications: Current Medications Ferric Sodium Gluconate Complex (Ferrlecit) 125 mg IVPB DAILY [facility] Stop: 04/03/17 10:01 Potassium Chloride 20 meq/ (Dextrose/Sodium Chloride) 1,010 mls @ 100 mls/hr IV .Q10H6M [facility] Last Admin: 03/29/17 10:50 Dose: 100 mls/hr Ondansetron HCl (Zofran Inj) 4 mg IVP Q4H PRN PRN Reason: Nausea/Vomiting Pantoprazole Sodium (Protonix Ec Tab) 40 mg PO DAILY [facility] Last Admin: 03/29/17 10:57 Dose: 40 mg Pneumococcal Polyvalent Vaccine (Pneumovax 23 Vaccine) 0.5 ml IM .ONCE ONE Stop: 04/01/17 10:01 - Labs Labs: 03/29/17 06:43 03/29/17 06:43 Attending/Attestation - Attestation I have personally seen and examined this patient.: Yes I have fully participated in the care of the patient.: Yes I have reviewed all pertinent clinical information, including history, physical exam and plan: Yes Notes (Text): patient seen, examined, and case discussed with day-time resident. patient seen during morning rounds. patient premedicated with morphine prior to my examination. patient report unintentional weight loss of 40lbs. patient denies dysphagia, denies odonophagia. Patient reports been having abdominal pain on and off. Patient reports she feels like she vomits everything up. Patient denies history of any GI disorder nor family history. After clarification regarding GI on case, ED had spoken with Dr. Shay on admission given he was on-call and resident has clarified the case with him during change of service today. Changed to inpatient: patient going for EGD and possible colonoscopy during this admission. Assessment/Plan (1) Ileitis Assessment and Plan: * GI (Dr. Shay) on board-->help appreciated * Plan for EGD tomorrow and possible colonoscopy for Wednesday * NPO after midnight * Severe ileitis on prior CT, (+) N/V, abdominal pain, 40lb weight loss over the span of 6 months * CT abdomen/pelvis (03/16/17): severe inflammatory changes in RLQ and pelvis likely representing severe ilelitis. No evidence of free air, loculated air or drainable collection. No evidence of proximal bowel obstruction. * on 03/19/17 * IgA: 221 * Tissue transglutamin A: 1 (antibody not detected) * Celiac panel: no serological evidence of celiac disease * F/U fecal leukocytes, ova and parasite, stool culture, FOBT ordered * patient refused rectal exam today. Patient denies BRBPR, denies melena, denies change in stool. Patient previously on Iron PO supplementation for anemia * Fluids: D5 1/2 NS with KCL at 100cc/hr * r/o infection, suspicion for IBD Status: Acute (2) Iron deficiency anemia Assessment and Plan: * Iron deficiency anemia * Serum iron- 11, TIBC- 165, ferritin- 70.3 * Hg 9.1 on admission, now 8.1 this morning * Per review of EMR, Hgb in 8-9s (from 11/09/16 on) * RBC consent obtained by resident, risks and benefits discussed with patient * Patient recently finished period last week, about 2-3 days of cycle, reports they are normal * Ferrlecit 125mg IVP daily x 5 days * 03/16/17 pelvic US: no evidence of adenexal torsion. Multiple subcentimeter follicles bilaterally. complex cysts right adnexa 1.8 X 2.1 X2 cm * Refused MAIDA exam * Going for EGD in AM and possible colonoscopy for Wednesday Status: Acute (3) Prophylactic measure Assessment and Plan: * DVT: not indicated * GI: protonix 40mg po daily * Diet: CLD, NPO past midnight for EGD in AM Status: Acute
[2017-03-29] MEDS ORDERED: Ferric Sodium Gluconat Complex 62.5 mg/5 ml Vial IVPB ONE (16:00)
--- NOTE | 2017-03-29 17:46 | CP.PCM.CON ---
History of Present Illness - History of Present Illness History of Present Illness: Pt is a 21 yo AA female admitted from ED with RLQ pain and vomiting after meals. She reports she has had similar pain on and off for the past year and has been under the care of Dr Parker. She had a CT Scan done 03/16 that showed her to have ileitis. She was given a course of po antibiotics but had no improvement. She also was noted to be anemia with hgb=9-10. She denies and diarrhea, bleeding or melena. She has light menses which just concluded last week. She was told by Dr Parker that she needed an EGd and colonoscopy and was referred to Dr Vega's office. She reports when she arrived she was told that she had no insurance and he could not see her. He reviewed the office noteds and told her that it would be easier for her to go to the ER when she had the next bout of pain and have the procedures done using "[facility]" so she would not have to pay. When contacted to see her yesterday Dr Vega requested the "sales and operations trainee" GI doctor be consulted to see her. She reports a 40 pound weight loss over the past year. No family h/o IBD or GI malignancies. She denies any past PMH or surgeries. She works for [employer] in [employer] and has not missed much work time. I am consulted to evaluate her anemia, weight loss and "ileitis" not responding to antibiotic Rx. Review of Systems - Constitutional Constitutional: Anorexia, Weight Loss, Weakness - Cardiovascular Cardiovascular: absent: Chest Pain, Chest Pain at Rest, Dyspnea - Respiratory Respiratory: absent: Cough, Dyspnea - Gastrointestinal Gastrointestinal: As Per HPI - Reproductive: Female Reproductive:Female: Menses 1-7 Days - Menstruation Menstruation: Light Menses - Musculoskeletal Musculoskeletal: absent: Arthralgias, Back Pain, Myalgias Past Patient History - Infectious Disease Hx of Infectious Diseases: None - Past Medical History & Family History Past Medical History?: No - Past Social History Smoking Status: Light Smoker < 10 Cigarettes Daily Alcohol: Social Drugs: Denies Home Situation {Lives}: With Family - CARDIAC Hx Cardiac Disorders: No - PULMONARY Hx Respiratory Disorders: No - NEUROLOGICAL Hx Neurological Disorder: No - HEENT Hx HEENT Problems: No - RENAL Hx Chronic Kidney Disease: No - ENDOCRINE/METABOLIC Hx Endocrine Disorders: No - HEMATOLOGICAL/ONCOLOGICAL Hx Blood Disorders: No Hx Cirrhosis: No Hx Hepatitis A: No Hx Hepatitis B: No Hx Hepatitis C: No Hx Human Immunodeficiency Virus (HIV): No - INTEGUMENTARY Hx Dermatological Problems: No - MUSCULOSKELETAL/RHEUMATOLOGICAL Hx Musculoskeletal Disorders: No Hx Falls: No - GASTROINTESTINAL Hx Bowel Surgery: No Hx Clostridium Difficile: No Hx Colitis: No Hx Colostomy: No Hx Constipation: No Hx Crohn's Disease: No Hx Diarrhea: No Hx Diverticulitis: No Hx Esophageal Varices: No Hx Fatty Liver Disease: No Hx Gall Bladder Disease: No Hx Gastritis: Yes Hx Gastroesophageal Reflux: No Hx Hemorrhoids: No Hx Ileostomy: No Hx Irritable Bowel: No Hx Liver Failure: No Hx Nausea: Yes Hx Pancreatitis: No HX Swallowing Problems: No Hx Ulcer: No Hx Vomiting: Yes - GENITOURINARY/GYNECOLOGICAL Hx Genitourinary Disorders: No - PSYCHIATRIC Hx Psychophysiologic Disorder: No Hx Substance Use: No - SURGICAL HISTORY Hx Surgeries: No - ANESTHESIA Hx Anesthesia: No Meds Allergies/Adverse Reactions: Allergies Allergy/AdvReac Type Severity Reaction Status Date / Time No Known Allergies Allergy Verified 03/28/17 20:43 - Medications Medications: Current Medications Ferric Sodium Gluconate Complex (Ferrlecit) 125 mg IVPB DAILY [facility] Stop: 04/03/17 10:01 Potassium Chloride 20 meq/ (Dextrose/Sodium Chloride) 1,010 mls @ 100 mls/hr IV .Q10H6M [facility] Last Admin: 03/29/17 10:50 Dose: 100 mls/hr Ondansetron HCl (Zofran Inj) 4 mg IVP Q4H PRN PRN Reason: Nausea/Vomiting Pantoprazole Sodium (Protonix Ec Tab) 40 mg PO DAILY [facility] Last Admin: 03/29/17 10:57 Dose: 40 mg Pneumococcal Polyvalent Vaccine (Pneumovax 23 Vaccine) 0.5 ml IM .ONCE ONE Stop: 04/01/17 10:01 Physical Exam - Constitutional Appears: Non-toxic, No Acute Distress - Head Exam Head Exam: ATRAUMATIC, NORMOCEPHALIC - Eye Exam Eye Exam: EOMI, PERRL - Neck Exam Neck exam: Negative for: Lymphadenopathy, Thyromegaly - Respiratory Exam Respiratory Exam: NORMAL BREATHING PATTERN - Cardiovascular Exam Cardiovascular Exam: REGULAR RHYTHM, +S1 - GI/Abdominal Exam GI & Abdominal Exam: Normal Bowel Sounds, Soft. absent: Distended, Mass, Organomegaly, Rebound, Rigid, Tenderness Additional comments: Mild guarding to deep palpation in RLQ. NO masses or rebound. No scars. Umbilicus is pierced. - Rectal Exam Rectal Exam: Deferred - Extremities Exam Extremities exam: Positive for: full ROM, normal inspection. Negative for: pedal edema - Neurological Exam Neurological exam: Alert, CN II-XII Intact, Oriented x3 - Psychiatric Exam Psychiatric exam: Normal Affect, Normal Mood - Skin Skin Exam: Dry, Warm Results - Vital Signs Recent Vital Signs: Last Vital Signs Temp 98.3 F 03/29/17 09:25 Pulse 90 03/29/17 09:25 Resp 20 03/29/17 09:25 BP 103/68 03/29/17 09:25 Pulse Ox 100 03/29/17 09:25 - Labs Result Diagrams: 03/29/17 06:43 03/29/17 06:43 Labs: Laboratory Results - last 24 hr 03/28/17 03/28/17 03/28/17 20:50 20:55 21:09 WBC 10.1 RBC 3.86 Hgb 9.1 L Hct 27.6 L MCV 71.5 L D MCH 23.6 L MCHC 33.1 RDW 15.7 H Plt Count 621 H D MPV 7.1 L Neut % (Auto) 71.3 Lymph % (Auto) 20.7 Crosby % (Auto) 6.4 Eos % (Auto) 1.2 Baso % (Auto) 0.4 Neut # 7.2 H Lymph # 2.1 Crosby # 0.6 Eos # 0.1 Baso # 0.0 Differential Comment ESR Sodium Potassium Chloride Carbon Dioxide Anion Gap BUN Creatinine Est GFR ( Amer) Est GFR (Non-Af Amer) Random Glucose Calcium Phosphorus 3.3 Magnesium 1.9 Iron TIBC % Saturation Ferritin Total Bilirubin AST ALT Alkaline Phosphatase C-React Prot High Sens Total Protein Albumin Globulin Albumin/Globulin Ratio Lipase 29 Urine Color Yellow Urine Clarity Clear Urine pH 7.0 Ur Specific [place] 1.025 Urine Protein Negative Urine Glucose (UA) Normal Urine Ketones Trace Urine Blood Negative Urine Nitrate Negative Urine Bilirubin Negative Urine Urobilinogen Normal Ur Leukocyte Esterase Trace Urine WBC (Auto) 4 Urine RBC (Auto) 3 Ur Squamous Epith Cells 1 Urine Bacteria Occ H Urine HCG, Qual Blood Type Blood Type Confirm Antibody Screen 03/28/17 03/29/17 03/29/17 21:56 06:43 06:43 WBC 8.3 RBC 3.46 L Hgb 8.1 L Hct 24.8 L MCV 71.6 L MCH 23.5 L MCHC 32.9 L RDW 15.4 H Plt Count 536 H MPV 7.5 Neut % (Auto) 58.1 Lymph % (Auto) 28.1 Crosby % (Auto) 11.2 H Eos % (Auto) 2.2 Baso % (Auto) 0.4 Neut # 4.8 Lymph # 2.3 Crosby # 0.9 H Eos # 0.2 Baso # 0.0 Differential Comment ESR 75 H Sodium 138 Potassium 4.0 Chloride 98 Carbon Dioxide 24 Anion Gap 20 BUN 10 Creatinine 0.6 L Est GFR ( Amer) > 60 Est GFR (Non-Af Amer) > 60 Random Glucose 92 Calcium 9.3 Phosphorus Magnesium Iron TIBC % Saturation Ferritin Total Bilirubin 0.5 AST 17 ALT 16 Alkaline Phosphatase 50 C-React Prot High Sens > 15.00 H Total Protein 7.6 Albumin 3.7 Globulin 3.9 Albumin/Globulin Ratio 0.9 L Lipase Urine Color Urine Clarity Urine pH Ur Specific [place] Urine Protein Urine Glucose (UA) Urine Ketones Urine Blood Urine Nitrate Urine Bilirubin Urine Urobilinogen Ur Leukocyte Esterase Urine WBC (Auto) Urine RBC (Auto) Ur Squamous Epith Cells Urine Bacteria Urine HCG, Qual Blood Type Blood Type Confirm Antibody Screen 03/29/17 03/29/17 03/29/17 06:43 06:43 14:13 WBC RBC Hgb Hct MCV MCH MCHC RDW Plt Count MPV Neut % (Auto) Lymph % (Auto) Crosby % (Auto) Eos % (Auto) Baso % (Auto) Neut # Lymph # Crosby # Eos # Baso # Differential Comment ESR Sodium 141 Potassium 3.9 Chloride 108 H Carbon Dioxide 22 Anion Gap 15 BUN 11 Creatinine 0.8 Est GFR ( Amer) > 60 Est GFR (Non-Af Amer) > 60 Random Glucose 87 Calcium 8.1 L Phosphorus Magnesium Iron 11 L TIBC 165 L % Saturation 7 L Ferritin 70.3 Total Bilirubin 0.3 AST 17 ALT 17 Alkaline Phosphatase 44 C-React Prot High Sens Total Protein 6.3 Albumin 2.9 L D Globulin 3.4 Albumin/Globulin Ratio 0.9 L Lipase Urine Color Urine Clarity Urine pH Ur Specific [place] Urine Protein Urine Glucose (UA) Urine Ketones Urine Blood Urine Nitrate Urine Bilirubin Urine Urobilinogen Ur Leukocyte Esterase Urine WBC (Auto) Urine RBC (Auto) Ur Squamous Epith Cells Urine Bacteria Urine HCG, Qual Blood Type B POSITIVE Blood Type Confirm B POSITIVE Antibody Screen Negative 03/29/17 17:10 WBC RBC Hgb Hct MCV MCH MCHC RDW Plt Count MPV Neut % (Auto) Lymph % (Auto) Crosby % (Auto) Eos % (Auto) Baso % (Auto) Neut # Lymph # Crosby # Eos # Baso # Differential Comment ESR Sodium Potassium Chloride Carbon Dioxide Anion Gap BUN Creatinine Est GFR ( Amer) Est GFR (Non-Af Amer) Random Glucose Calcium Phosphorus Magnesium Iron TIBC % Saturation Ferritin Total Bilirubin AST ALT Alkaline Phosphatase C-React Prot High Sens Total Protein Albumin Globulin Albumin/Globulin Ratio Lipase Urine Color Urine Clarity Urine pH Ur Specific [place] Urine Protein Urine Glucose (UA) Urine Ketones Urine Blood Urine Nitrate Urine Bilirubin Urine Urobilinogen Ur Leukocyte Esterase Urine WBC (Auto) Urine RBC (Auto) Ur Squamous Epith Cells Urine Bacteria Urine HCG, Qual Negative Blood Type Blood Type Confirm Antibody Screen Assessment & Plan - Assessment and Plan (Free Text) Assessment: 21 yo AA female admitted with one year h/o RLQ pain, weight loss and unexplained anemia. Has poor po intake and has been vomiting after meals. Recent CT showed ileitis not responding to antibiotics as outpatient. Referred to hospital for work up due to lack of insurance and unable to afford visit in spite of being employed. Not eligible for Medicaid per patient. Clinical picture is highly suspicious for IBD vs infectious vs celiac disease, sprue or other entity. Rec/ Stool studies Work up for etiolgy of anemia (?iron deficient or other) Check celiac antibody profile and IBD discrimination panel to be ordered Check test Will plan for EGD in am (with likely small bowel biopsy done as well) and if negative will prep for colonoscopy to follow with hope of ileal intubation. Patient aware that she will need to follow up with a GI specialist after discharge pending the results of the work up. Explained that this may be a "lifetime" chronic disease that will require proper management. Will consider referral to the [facility] center following discharge.
[2017-03-30 07:30] LABS: ALKALINE PHOSPHATASE 39 U/L (38-126); ALT/SGPT 14 U/L (9-52); AST/SGOT 12 U/L (14-36); BASO % 0.3 % (0.0-2.0); BILIRUBIN,TOTAL 0.2 mg/dL (0.2-1.3); BLOOD UREA NITROGEN 3 mg/dL (7-17); CALCIUM 8.8 mg/dl (8.6-10.4); CARBON DIOXIDE 24 mmol/L (22-30); CHLORIDE 104 mmol/L (98-107); EOS # 0.1 K/uL (0.0-0.7); EOS % 1.7 % (0.0-4.0); GFR AFRICAN-AMERICAN > 60; GLUCOSE,RANDOM 92 mg/dL (65-105); HEMATOCRIT 24.6 % (34.0-47.0); LYMPH % 26.4 % (20.0-40.0); MEAN CELL VOLUME 71.3 fL (81.0-99.0); MEAN CORPUSCULAR HEMOGLOBIN 23.4 pg (27.0-31.0); MEAN CORPUSCULAR HGB CONC 32.8 g/dL (33.0-37.0); MEAN PLATELET VOLUME 7.2 fL (7.2-11.7); MONO # 0.9 K/uL (0.0-0.8); MONO % 12.3 % (0.0-10.0); POTASSIUM 3.8 mmol/L (3.6-5.2); RED CELL DISTRIBUTION WIDTH 15.6 % (11.5-14.5); SODIUM 136 mmol/L (132-148); WHITE BLOOD COUNT 7.6 K/uL (4.8-10.8)
--- NOTE | 2017-03-30 10:09 | CP.PCM.PN ---
Addendum entered and electronically signed by Anabelle Bronson DO 03/30/17 11:22 : Suprapubic Tenderness * Suspected UTI * Suprapubic Tenderness on exam * UA, UC ordered * Will start Bactrim DS Q12H after UA and UC retrieved Original Note: <Anabelle Bronson - Last Filed: 03/30/17 11:15> Subjective - Date & Time of Evaluation Date of Evaluation: 03/30/17 Time of Evaluation: 07:00 - Subjective Subjective: Medicine Note for Dr. Dior Patient was seen and examined at bedside. Patient admitted to no acute complaints. She tolerated CLD yesterday, no bowel movement, is passing flatus, admitted to lower abdominal pain. She is currently NPO, for EGD today with Dr. Izaguirre before 12pm. Colonoscopy is possible pending EGD findings, is so, planned for Wednesday. Denied fever,chills, headache, chest pain, SOB, abdominal pain, n/v/d/c, or urinary symptoms. Objective - Vital Signs/Intake and Output Vital Signs (last 24 hours): Temp Pulse Resp BP Pulse Ox 98.7 F 90 20 97/57 L 100 03/30/17 08:58 03/30/17 08:58 03/30/17 08:58 03/30/17 08:58 03/30/17 08:58 Intake and Output: 03/30/17 03/30/17 06:59 18:59 Intake Total 1100 800 Balance 1100 800 - Medications Medications: Current Medications Ferric Sodium Gluconate Complex (Ferrlecit) 125 mg IVPB DAILY [facility] Stop: 04/03/17 10:01 Potassium Chloride 20 meq/ (Dextrose/Sodium Chloride) 1,010 mls @ 100 mls/hr IV .Q10H6M [facility] Last Admin: 03/29/17 22:39 Dose: 100 mls/hr Ondansetron HCl (Zofran Inj) 4 mg IVP Q4H PRN PRN Reason: Nausea/Vomiting Pantoprazole Sodium (Protonix Ec Tab) 40 mg PO DAILY [facility] Last Admin: 03/29/17 10:57 Dose: 40 mg Pneumococcal Polyvalent Vaccine (Pneumovax 23 Vaccine) 0.5 ml IM .ONCE ONE Stop: 04/01/17 10:01 - Labs Labs: 03/30/17 07:02 03/30/17 07:02 - Constitutional Appears: No Acute Distress - Head Exam Head Exam: NORMAL INSPECTION, NORMOCEPHALIC - Eye Exam Eye Exam: EOMI, Normal appearance, PERRL Pupil Exam: NORMAL ACCOMODATION - ENT Exam ENT Exam: Mucous Membranes Moist - Respiratory Exam Respiratory Exam: Clear to Ausculation Bilateral, NORMAL BREATHING PATTERN - Cardiovascular Exam Cardiovascular Exam: REGULAR RHYTHM - GI/Abdominal Exam GI & Abdominal Exam: Soft, Tenderness (RLQ ), Normal Bowel Sounds. absent: Distended - Extremities Exam Extremities Exam: Normal Inspection. absent: Pedal Edema, Tenderness - Neurological Exam Neurological Exam: Alert, Awake, Oriented x3 - Psychiatric Exam Psychiatric exam: Normal Affect, Normal Mood - Skin Skin Exam: Dry, Intact, Normal Color, Warm Assessment and Plan - Assessment and Plan (Free Text) Plan: Ileitis Assessment and Plan: * Fluids: D5 1/2 NS with KCL at 100cc/hr * Severe ileitis on prior CT, (+) N/V, abdominal pain, 40lb weight loss over the span of 6 months * CT abdomen/pelvis (03/16/17): severe inflammatory changes in RLQ and pelvis likely representing severe ilelitis. No evidence of free air, loculated air or drainable collection. No evidence of proximal bowel obstruction. * GI (Dr. Shay) on board * Original Plan for EGD today and possible colonoscopy for Wednesday - due to an emergency, this surgery is cancelled today. PLAN FOR EGD AND COLONOSCOPY TOMORROW as per Dr. Izaguirre. * on 03/19/17 * IgA: 221 * Tissue transglutamin A: 1 (antibody not detected) * Celiac panel: no serological evidence of celiac disease * Patient denies BRBPR, denies melena, denies change in stool. Patient previously on Iron PO supplementation for anemia * F/U fecal leukocytes, ova and parasite, stool culture, FOBT ordered - r/o infection, suspicion for IBD Status: Acute Iron deficiency anemia Assessment and Plan: * Iron deficiency anemia * Serum iron- 11, TIBC- 165, ferritin- 70.3 * Hg 9.1 on admission, now 8.1 this morning. Per review of EMR, Hgb in 8-9s ( from 11/09/16 on). RBC consent obtained by resident, risks and benefits discussed with patient. * Menses normal. 03/16/17 pelvic US: no adenexal torsion. Multiple subcentimeter follicles bilaterally. Complex cysts right adnexa 1.8 X 2.1 X2 cm * Refused MAIDA exam, EGD today and possible colonoscopy for Wednesday * Ferrlecit 125mg IVP daily, day 07/09 completed - last dose 04/03/17 Status: Acute Prophylactic measure Assessment and Plan: * DVT: not indicated * GI: protonix 40mg po daily * Diet: CLD, NPO past midnight for EGD in AM Status: Acute DW Dr. Barby Bronson DO, PGY-1 <Wendy Dior V - Last Filed: 03/31/17 16:13> Objective - Vital Signs/Intake and Output Vital Signs (last 24 hours): Temp Pulse Resp BP Pulse Ox 97.8 F 86 21 99/59 L 100 03/31/17 11:09 03/31/17 11:09 03/31/17 11:09 03/31/17 11:09 03/31/17 11:09 Intake and Output: 03/31/17 03/31/17 06:59 18:59 Intake Total 2100 300 Balance 2100 300 - Medications Medications: Current Medications Ferric Sodium Gluconate Complex (Ferrlecit) 125 mg IVPB DAILY [facility] Stop: 04/03/17 10:01 Last Admin: 03/31/17 11:00 Dose: 125 mg Potassium Chloride 20 meq/ (Dextrose/Sodium Chloride) 1,010 mls @ 100 mls/hr IV .Q10H6M [facility] Last Admin: 03/31/17 03:41 Dose: Not Given Lactated Ringer's (Lactated Ringer's 500ml) 500 mls @ 75 mls/hr IV .Q6H40M [facility] Last Admin: 03/31/17 12:55 Dose: Not Given Mesalamine (Delzicol) 800 mg PO TIDCC [facility] Ondansetron HCl (Zofran Inj) 4 mg IVP Q4H PRN PRN Reason: Nausea/Vomiting Last Admin: 03/30/17 12:54 Dose: 4 mg Pantoprazole Sodium (Protonix Ec Tab) 40 mg PO DAILY [facility] Last Admin: 03/31/17 10:12 Dose: Not Given Pneumococcal Polyvalent Vaccine (Pneumovax 23 Vaccine) 0.5 ml IM .ONCE ONE Stop: 04/01/17 10:01 Prednisone (Prednisone Tab) 20 mg PO BID [facility] Trimethoprim/Sulfamethoxazole (Bactrim Ds Tab) 1 tab PO Q12H [facility] Last Admin: 03/31/17 10:12 Dose: Not Given - Labs Labs: 03/31/17 07:47 03/31/17 07:47 Attending/Attestation - Attestation I have personally seen and examined this patient.: Yes I have fully participated in the care of the patient.: Yes I have reviewed all pertinent clinical information, including history, physical exam and plan: Yes Notes (Text): This is late computer entry for 03/30/17. patient seen, examined, and case discussed with day-time resident. Patient seen in the morning with patient's mother at bedside. Patient's procedure cancelled for today secondary to unforeseen circumstances; there was an emergency not related to the patient wherein GI needed to re-chedule. Rescheduled for tomorrow. Patient reports suprapubic tenderness. Patient ordered for urine studies and started on bactrim DS 1 tab PO BID to cover for UTI. Assessment/Plan (1) Ileitis Assessment and Plan: * GI (Dr. Shay) on board-->help appreciated * Plan for EGD tomorrow and possible colonoscopy for Wednesday * NPO after midnight * Severe ileitis on prior CT, (+) N/V, abdominal pain, 40lb weight loss over the span of 6 months * CT abdomen/pelvis (03/16/17): severe inflammatory changes in RLQ and pelvis likely representing severe ilelitis. No evidence of free air, loculated air or drainable collection. No evidence of proximal bowel obstruction. * on 03/19/17 * IgA: 221 * Tissue transglutamin A: 1 (antibody not detected) * Celiac panel: no serological evidence of celiac disease * F/U fecal leukocytes, ova and parasite, stool culture, FOBT ordered * patient refused rectal exam today. Patient denies BRBPR, denies melena, denies change in stool. Patient previously on Iron PO supplementation for anemia * Fluids: D5 1/2 NS with KCL at 100cc/hr * r/o infection, suspicion for IBD Status: Acute (2) Iron deficiency anemia Assessment and Plan: * Iron deficiency anemia * Serum iron- 11, TIBC- 165, ferritin- 70.3 * Hg 9.1 on admission, now 8.1 this morning * Per review of EMR, Hgb in 8-9s (from 11/09/16 on) * RBC consent obtained by resident, risks and benefits discussed with patient * Patient recently finished period last week, about 2-3 days of cycle, reports they are normal * Ferrlecit 125mg IVP daily x 5 days * 03/16/17 pelvic US: no evidence of adenexal torsion. Multiple subcentimeter follicles bilaterally. complex cysts right adnexa 1.8 X 2.1 X2 cm * Refused MAIDA exam * Going for EGD in AM and possible colonoscopy for Wednesday Status: Acute (3) Prophylactic measure Assessment and Plan: * DVT: not indicated * GI: protonix 40mg po daily * Diet: CLD, NPO past midnight for EGD in AM Status: Acute
[2017-03-30] MEDS: Pantoprazole 40 mg EC Tab PO SCH (10:16)
[2017-03-30] MEDS: Ferric Sodium Gluconat Complex 62.5 mg/5 ml Vial IVPB SCH (10:18)
[2017-03-30] MEDS ORDERED: Propofol 10 mg/ml Inj (20 ML) ONE (10:20)
[2017-03-30] MEDS ORDERED: Tmp-Smz 800 mg-160 mg DS Tab PO ONE ×2 (12:30→20:00)
[2017-03-30] MEDS: Potassium Chloride 20 MEQ in Dextrose 5%/0.45% NS 1,000 ML IV SCH ×2 (12:54→21:44)
[2017-03-30 15:58] LABS: RBC URINE 5 /hpf (0-3); URINE BACTERIA RARE (<OCC); URINE BILIRUBIN NEGATIVE (NEGATIVE); URINE BLOOD 1+ (NEGATIVE); URINE COLOR Yellow (YELLOW); URINE GLUCOSE (UA) NORMAL (Normal); URINE KETONE NEGATIVE (NEGATIVE); URINE LEUKOCYTE ESTERASE 3+ Leu/uL (Negative); URINE PROTEIN NEGATIVE (NEGATIVE); URINE UROBILINOGEN NORMAL mg/dL (0.2-1.0); WBC URINE 18 /hpf (0-5)
[2017-03-30] MEDS ORDERED: Bisacodyl 5mg EC Tab PO ONE (17:00)
[2017-03-30] MEDS ORDERED: Peg-Electrolyte Oral Soln 4L (Golytely) PO ONE (19:00)
[2017-03-30] MEDS ORDERED: Magnesium Citrate Oral SOL (300 ml) PO ONE (22:06)
[2017-03-31] MEDS: Potassium Chloride 20 MEQ in Dextrose 5%/0.45% NS 1,000 ML IV SCH (03:41)
--- NOTE | 2017-03-31 06:55 | CP.PCM.PN ---
<Anabelle Bronson - Last Filed: 03/31/17 11:46> Subjective - Date & Time of Evaluation Date of Evaluation: 03/31/17 Time of Evaluation: 06:00 - Subjective Subjective: Medicine Note for Dr. Dior Patient was seen and examined at bedside. She tolerated FLD yesterday, had 2 bowel movements after golytely, is passing flatus, admitted to lower abdominal pain. She is currently NPO, for EGD and Colonoscopy today with Dr. Izaguirre. Denied fever,chills, headache, chest pain, SOB, n/v/d/c, or urinary symptoms. Objective - Vital Signs/Intake and Output Vital Signs (last 24 hours): Temp Pulse Resp BP Pulse Ox 99 F 103 H 18 93/51 L 99 03/30/17 23:47 03/30/17 23:47 03/30/17 23:47 03/30/17 23:47 03/30/17 23:47 Intake and Output: 03/30/17 03/31/17 18:59 06:59 Intake Total 800 2100 Balance 800 2100 - Medications Medications: Current Medications Ferric Sodium Gluconate Complex (Ferrlecit) 125 mg IVPB DAILY [facility] Stop: 04/03/17 10:01 Last Admin: 03/30/17 10:18 Dose: 125 mg Potassium Chloride 20 meq/ (Dextrose/Sodium Chloride) 1,010 mls @ 100 mls/hr IV .Q10H6M [facility] Last Admin: 03/31/17 03:41 Dose: Not Given Ondansetron HCl (Zofran Inj) 4 mg IVP Q4H PRN PRN Reason: Nausea/Vomiting Last Admin: 03/30/17 12:54 Dose: 4 mg Pantoprazole Sodium (Protonix Ec Tab) 40 mg PO DAILY [facility] Last Admin: 03/30/17 10:16 Dose: 40 mg Pneumococcal Polyvalent Vaccine (Pneumovax 23 Vaccine) 0.5 ml IM .ONCE ONE Stop: 04/01/17 10:01 Trimethoprim/Sulfamethoxazole (Bactrim Ds Tab) 1 tab PO Q12H [facility] - Labs Labs: 03/30/17 07:02 03/30/17 07:02 - Additional Findings Additional findings: - Constitutional Appears: No Acute Distress - Head Exam Head Exam: NORMAL INSPECTION, NORMOCEPHALIC - Eye Exam Eye Exam: EOMI, Normal appearance, PERRL Pupil Exam: NORMAL ACCOMODATION - ENT Exam ENT Exam: Mucous Membranes Moist - Respiratory Exam Respiratory Exam: Clear to Ausculation Bilateral, NORMAL BREATHING PATTERN - Cardiovascular Exam Cardiovascular Exam: REGULAR RHYTHM - GI/Abdominal Exam GI & Abdominal Exam: Soft, Tenderness (RLQ ), Normal Bowel Sounds. absent: Distended - Extremities Exam Extremities Exam: Normal Inspection. absent: Pedal Edema, Tenderness - Neurological Exam Neurological Exam: Alert, Awake, Oriented x3 - Psychiatric Exam Psychiatric exam: Normal Affect, Normal Mood - Skin Skin Exam: Dry, Intact, Normal Color, Warm Assessment and Plan - Assessment and Plan (Free Text) Plan: Ileitis Assessment and Plan: * Fluids: D5 1/2 NS with KCL at 100cc/hr * Severe ileitis on prior CT, (+) N/V, abdominal pain, 40lb weight loss over the span of 6 months * CT abdomen/pelvis (03/16/17): severe inflammatory changes in RLQ and pelvis likely representing severe ilelitis. No evidence of free air, loculated air or drainable collection. No evidence of proximal bowel obstruction. * (+) FOBT, C.diff neg * F/U fecal leukocytes, ova and parasite, stool culture * on 03/19/17 * IgA: 221 * Tissue transglutamin A: 1 (antibody not detected) * Celiac panel: no serological evidence of celiac disease * GI (Dr. Shay) on board * EGD and Colonoscopy today. * EGD:Large hiatal hernia but otherwise normal. Duodenal biopsies taken to exclude Celiac disease. No duodenal ulceration or stricture seen. * Colonoscopy: Nodularity of ileocecal valve and minimally intubated terminal ileum c/w likely Crohn's disease. Remainder of colon was normal. Stool aspirated and sent for microbiological studies. * Dr Shay recommendations: Begin Pentasa 1000mg po Q6H, Prednisone 40mg po daily (split dose). Discharge to outpatient followup in the GI Clinic if stable and tolerating diet. Advise UGI and SBS to delineate extent of ileal involvement. If not may need Pillcam as outpatient through clinic. * F/U GI SERIES w/ small bowel Status: Acute Urinary Tract Infection Assessment and Plan: * Suprapubic Tenderness on exam * UA: + blood, + LE * Bactrim DS Q12H * F/U Urine culture Status: Acute Iron deficiency anemia Assessment and Plan: * Iron deficiency anemia * Serum iron- 11, TIBC- 165, ferritin- 70.3 * Hg 9.1 on admission, now 8.1 this morning. Per review of EMR, Hgb in 8-9s ( from 11/09/16 on). RBC consent obtained by resident, risks and benefits discussed with patient. * Menses normal. 03/16/17 pelvic US: no adenexal torsion. Multiple subcentimeter follicles bilaterally. Complex cysts right adnexa 1.8 X 2.1 X2 cm * Refused MAIDA exam, EGD today and possible colonoscopy for Wednesday * Ferrlecit 125mg IVP daily, day 2 completed - last dose 04/03/17 Status: Acute Prophylactic measure Assessment and Plan: * DVT: not indicated * GI: protonix 40mg po daily * Diet: RESUMED FLD Status: Acute DW Dr. Barby Bronson DO, PGY-1 <Wendy Dior V - Last Filed: 03/31/17 16:23> Objective - Vital Signs/Intake and Output Vital Signs (last 24 hours): Temp Pulse Resp BP Pulse Ox 97.8 F 86 21 99/59 L 100 03/31/17 11:09 03/31/17 11:09 03/31/17 11:09 03/31/17 11:09 03/31/17 11:09 Intake and Output: 03/31/17 03/31/17 06:59 18:59 Intake Total 2100 300 Balance 2100 300 - Medications Medications: Current Medications Ferric Sodium Gluconate Complex (Ferrlecit) 125 mg IVPB DAILY [facility] Stop: 04/03/17 10:01 Last Admin: 03/31/17 11:00 Dose: 125 mg Potassium Chloride 20 meq/ (Dextrose/Sodium Chloride) 1,010 mls @ 100 mls/hr IV .Q10H6M [facility] Last Admin: 03/31/17 03:41 Dose: Not Given Lactated Ringer's (Lactated Ringer's 500ml) 500 mls @ 75 mls/hr IV .Q6H40M [facility] Last Admin: 03/31/17 12:55 Dose: Not Given Mesalamine (Delzicol) 800 mg PO TIDCC [facility] Ondansetron HCl (Zofran Inj) 4 mg IVP Q4H PRN PRN Reason: Nausea/Vomiting Last Admin: 03/30/17 12:54 Dose: 4 mg Pantoprazole Sodium (Protonix Ec Tab) 40 mg PO DAILY [facility] Last Admin: 03/31/17 10:12 Dose: Not Given Pneumococcal Polyvalent Vaccine (Pneumovax 23 Vaccine) 0.5 ml IM .ONCE ONE Stop: 04/01/17 10:01 Prednisone (Prednisone Tab) 20 mg PO BID [facility] Trimethoprim/Sulfamethoxazole (Bactrim Ds Tab) 1 tab PO Q12H [facility] Last Admin: 03/31/17 10:12 Dose: Not Given - Labs Labs: 03/31/17 07:47 03/31/17 07:47 Attending/Attestation - Attestation I have personally seen and examined this patient.: Yes I have fully participated in the care of the patient.: Yes I have reviewed all pertinent clinical information, including history, physical exam and plan: Yes Notes (Text): Patient seen, examined and case discussed with day-time resident. Patient seen status post GI procedure. Patient reports she is feeling alright. Patient reports she doesn't want to drink juice at bedside, reports "hates the food here". Patient is pending UGI series. Spoke with patient's nurse, Suzanne, UGI to be completed in the morning. Patient made follow-up in the [facility] at on April [address] Parker to make sure patient is able to obtain GI referral to maintain continuity of care. Patient is currently on Liquid diet and will be NPO after midnight. Will continue Bactrim to cover for UTI/Cystitis; awaiting urine culture. Assessment/Plan (1) Ileitis-->Possible Crohn's Disease Assessment and Plan: * GI (Dr. hSay) on board-->help appreciated * s/p EGD and colonoscopy today * Per EGD: Large hiatal hernia but otherwise normal. Duodenal biopsies taken to exclude Celiac disease. No duodenal ulceration or stricture seen. * Per Colonoscopy: Nodularity of ileocecal valve and minimally intubated terminal ileum c/w likely Crohn's disease. Remainder of colon was normal. Stool aspirated and sent for microbiological studies. * Rec: Begin Pentasa 1000mg po Q6H; Prednisone 40mg po daily (split dose); Must have UGI prior to discharge. Advise UGI and SBS to delineate extent of ileal involvement. If not may need Pillcam as outpatient through clinic. ( Concern for capsule retention) * Severe ileitis on prior CT, (+) N/V, abdominal pain, 40lb weight loss over the span of 6 months * CT abdomen/pelvis (03/16/17): severe inflammatory changes in RLQ and pelvis likely representing severe ilelitis. No evidence of free air, loculated air or drainable collection. No evidence of proximal bowel obstruction. * on 03/19/17 * IgA: 221 * Tissue transglutamin A: 1 (antibody not detected) * Celiac panel: no serological evidence of celiac disease * fecal leukocytes +, ova and parasite negative X2, FOBT ordered; Patient had refused MAIDA on Wednesday * patient refused rectal exam 03/29/17. * Fluids: D5 1/2 NS with KCL at 100cc/hr Status: Acute (2) Iron deficiency anemia Assessment and Plan: * Iron deficiency anemia * Serum iron- 11, TIBC- 165, ferritin- 70.3 * Per review of EMR, Hgb in 8-9s (from 11/09/16 on) * RBC consent obtained by resident, risks and benefits discussed with patient * Patient recently finished period last week, about 2-3 days of cycle, reports they are normal * Ferrlecit 125mg IVP daily x 5 days * 03/16/17 pelvic US: no evidence of adenexal torsion. Multiple subcentimeter follicles bilaterally. complex cysts right adnexa 1.8 X 2.1 X2 cm * Refused MAIDA exam Status: Chronic (3) Prophylactic measure Assessment and Plan: * DVT: not indicated * GI: protonix 40mg po daily * Diet: Clear liquid; NPO after midnight Status: Acute
[2017-03-31 07:53] LABS: BASO % 0.2 % (0.0-2.0); EOS # 0.1 K/uL (0.0-0.7); EOS % 1.1 % (0.0-4.0); HEMATOCRIT 25.3 % (34.0-47.0); LYMPH # 1.8 K/uL (1.0-4.3); LYMPH % 19.2 % (20.0-40.0); MEAN CELL VOLUME 71.3 fL (81.0-99.0); MEAN CORPUSCULAR HEMOGLOBIN 23.3 pg (27.0-31.0); MEAN CORPUSCULAR HGB CONC 32.6 g/dL (33.0-37.0); MONO # 1.2 K/uL (0.0-0.8); MONO % 12.8 % (0.0-10.0); RED CELL DISTRIBUTION WIDTH 15.5 % (11.5-14.5); WHITE BLOOD COUNT 9.4 K/uL (4.8-10.8)
[2017-03-31 08:06] LABS: CHLORIDE 101 mmol/L (98-107); SODIUM 138 mmol/L (132-148)
[2017-03-31 08:08] LABS: ALB/GLOB RATIO 0.9 (1.0-2.1); AST/SGOT 12 U/L (14-36); BILIRUBIN,TOTAL 0.3 mg/dL (0.2-1.3); CARBON DIOXIDE 24 mmol/L (22-30); GFR AFRICAN-AMERICAN > 60; TOTAL PROTEIN 6.5 g/dL (6.3-8.3)
[2017-03-31 08:09] LABS: ALKALINE PHOSPHATASE 39 U/L (38-126); ALT/SGPT 19 U/L (9-52); BLOOD UREA NITROGEN 4 mg/dL (7-17); CALCIUM 8.8 mg/dl (8.6-10.4); GLUCOSE,RANDOM 87 mg/dL (65-105)
[2017-03-31] MEDS ORDERED: Propofol 10 mg/ml Inj (20 ML) ONE ×2 (09:56→10:20)
[2017-03-31] MEDS: Tmp-Smz 800 mg-160 mg DS Tab PO SCH ×2 (10:12→21:42)
[2017-03-31] MEDS: Pantoprazole 40 mg EC Tab PO SCH (10:12)
--- NOTE | 2017-03-31 10:48 | CP.PCM.PN ---
Subjective - Date & Time of Evaluation Date of Evaluation: 03/31/17 Time of Evaluation: 10:45 - Subjective Subjective: EGD: Large hiatal hernia but otherwise normal Duodenal biopsies taken to exclude Celiac disease. No duodenal ulceration or stricture seen. Colonoscopy: Nodularity of ileocecal valve and minimally intubated terminal ileum c/w likely Crohn's disease. Remainder of colon was normal. Stool aspirated and sent for microbiological studies. Rec/ Begin Pentasa 1000mg po Q6H Prednisone 40mg po daily (split dose) Discharge to outpatient followup in the GI Clinic if stable and tolerating diet Advise UGI and SBS to delineate extent of ileal involvement. If not may need Pillcam as outpatient through clinic. (Concern for capsule retention) Objective - Vital Signs/Intake and Output Vital Signs (last 24 hours): Temp Pulse Resp BP Pulse Ox 98.6 F 101 H 20 83/50 L 97 03/31/17 09:50 03/31/17 09:50 03/31/17 09:50 03/31/17 09:50 03/31/17 09:50 Intake and Output: 03/31/17 03/31/17 06:59 18:59 Intake Total 2100 250 Balance 2100 250 - Medications Medications: Current Medications Ferric Sodium Gluconate Complex (Ferrlecit) 125 mg IVPB DAILY [facility] Stop: 04/03/17 10:01 Last Admin: 03/30/17 10:18 Dose: 125 mg Potassium Chloride 20 meq/ (Dextrose/Sodium Chloride) 1,010 mls @ 100 mls/hr IV .Q10H6M [facility] Last Admin: 03/31/17 03:41 Dose: Not Given Lactated Ringer's (Lactated Ringer's 500ml) 500 mls @ 75 mls/hr IV .Q6H40M [facility] Mesalamine (Pentasa) 1,000 mg PO Q6 [facility] Ondansetron HCl (Zofran Inj) 4 mg IVP Q4H PRN PRN Reason: Nausea/Vomiting Last Admin: 03/30/17 12:54 Dose: 4 mg Pantoprazole Sodium (Protonix Ec Tab) 40 mg PO DAILY [facility] Last Admin: 03/31/17 10:12 Dose: Not Given Pneumococcal Polyvalent Vaccine (Pneumovax 23 Vaccine) 0.5 ml IM .ONCE ONE Stop: 04/01/17 10:01 Prednisone (Prednisone Tab) 20 mg PO BID [facility] Trimethoprim/Sulfamethoxazole (Bactrim Ds Tab) 1 tab PO Q12H [facility] Last Admin: 03/31/17 10:12 Dose: Not Given - Labs Labs: 03/31/17 07:47 03/31/17 07:47
[2017-03-31] MEDS: Ferric Sodium Gluconat Complex 62.5 mg/5 ml Vial IVPB SCH (11:00)
[2017-03-31] MEDS ORDERED: MESALAMINE 250 MG PO SCH (12:00)
[2017-03-31] MEDS: Lactated Ringer's 500 ML IV SCH ×3 (12:55→23:57)
[2017-03-31] MEDS: Saccharomyces Boulardi 250 mg Cap PO SCH (18:00)
[2017-04-01] MEDS: Potassium Chloride 20 MEQ in Dextrose 5%/0.45% NS 1,000 ML IV SCH ×2 (01:54→10:30)
[2017-04-01 02:07] VITALS: RESP 20
[2017-04-01 06:35] LABS: BASO % 0.1 % (0.0-2.0); EOS % 0.1 % (0.0-4.0); LYMPH # 1.4 K/uL (1.0-4.3); LYMPH % 14.6 % (20.0-40.0); MEAN CELL VOLUME 70.7 fL (81.0-99.0); MEAN CORPUSCULAR HGB CONC 32.5 g/dL (33.0-37.0); MEAN PLATELET VOLUME 7.1 fL (7.2-11.7); MONO # 0.6 K/uL (0.0-0.8); MONO % 5.7 % (0.0-10.0); RED CELL DISTRIBUTION WIDTH 15.5 % (11.5-14.5); WHITE BLOOD COUNT 9.8 K/uL (4.8-10.8)
[2017-04-01] MEDS: Lactated Ringer's 500 ML IV SCH (06:53)
[2017-04-01 07:00] LABS: ALKALINE PHOSPHATASE 40 U/L (38-126); ALT/SGPT 18 U/L (9-52); AST/SGOT 16 U/L (14-36); BILIRUBIN,TOTAL 0.2 mg/dL (0.2-1.3); BLOOD UREA NITROGEN 4 mg/dL (7-17); CALCIUM 9.1 mg/dl (8.6-10.4); CARBON DIOXIDE 22 mmol/L (22-30); CHLORIDE 102 mmol/L (98-107); GFR AFRICAN-AMERICAN > 60; GLUCOSE,RANDOM 115 mg/dL (65-105); POTASSIUM 4.6 mmol/L (3.6-5.2); SODIUM 136 mmol/L (132-148); TOTAL PROTEIN 6.1 g/dL (6.3-8.3)
[2017-04-01] MEDS ORDERED: Influenza Virus Vaccine (Afluria Inactive dont use ) IM ONE (10:00)
[2017-04-01] MEDS ORDERED: Pneumococcal 23-Valent Vaccine IM ONE (10:00)
--- NOTE | 2017-04-01 10:04 | CP.PCM.PN ---
<Anabelle Bronson - Last Filed: 04/01/17 14:18> Subjective - Date & Time of Evaluation Date of Evaluation: 04/01/17 Time of Evaluation: 09:00 - Subjective Subjective: Medicine Note for Dr. Dior Patient was seen and examined at bedside. Patient is NPO for upper GI series. No acute complaints. Denied fever,chills, headache, chest pain, SOB, n/v/d/c, or urinary symptoms. Objective - Vital Signs/Intake and Output Vital Signs (last 24 hours): Temp Pulse Resp BP Pulse Ox 97.5 F L 72 20 89/51 L 98 04/01/17 07:42 04/01/17 07:42 04/01/17 07:42 04/01/17 07:42 04/01/17 07:42 Intake and Output: 04/01/17 04/01/17 06:59 18:59 Intake Total 1600 Balance 1600 - Medications Medications: Current Medications Ferric Sodium Gluconate Complex (Ferrlecit) 125 mg IVPB DAILY [facility] Stop: 04/03/17 10:01 Last Admin: 03/31/17 11:00 Dose: 125 mg Potassium Chloride 20 meq/ (Dextrose/Sodium Chloride) 1,010 mls @ 100 mls/hr IV .Q10H6M [facility] Last Admin: 04/01/17 01:54 Dose: 100 mls/hr Lactated Ringer's (Lactated Ringer's 500ml) 500 mls @ 75 mls/hr IV .Q6H40M [facility] Last Admin: 04/01/17 06:53 Dose: Not Given Mesalamine (Delzicol) 800 mg PO TIDCC [facility] Last Admin: 04/01/17 08:44 Dose: 800 mg Ondansetron HCl (Zofran Inj) 4 mg IVP Q4H PRN PRN Reason: Nausea/Vomiting Last Admin: 03/30/17 12:54 Dose: 4 mg Pantoprazole Sodium (Protonix Ec Tab) 40 mg PO DAILY [facility] Last Admin: 03/31/17 10:12 Dose: Not Given Pneumococcal Polyvalent Vaccine (Pneumovax 23 Vaccine) 0.5 ml IM .ONCE ONE Stop: 04/01/17 10:01 Prednisone (Prednisone Tab) 20 mg PO BID [facility] Last Admin: 03/31/17 17:49 Dose: 20 mg Saccharomyces Boulardii (Florastor) 250 mg PO BID [facility] Last Admin: 03/31/17 18:00 Dose: 250 mg Trimethoprim/Sulfamethoxazole (Bactrim Ds Tab) 1 tab PO Q12H [facility] Last Admin: 03/31/17 21:42 Dose: 1 tab - Labs Labs: 04/01/17 06:23 04/01/17 06:23 - Additional Findings Additional findings: - Additional Findings Additional findings: - Constitutional Appears: No Acute Distress - Head Exam Head Exam: NORMAL INSPECTION, NORMOCEPHALIC - Eye Exam Eye Exam: EOMI, Normal appearance, PERRL Pupil Exam: NORMAL ACCOMODATION - ENT Exam ENT Exam: Mucous Membranes Moist - Respiratory Exam Respiratory Exam: Clear to Ausculation Bilateral, NORMAL BREATHING PATTERN - Cardiovascular Exam Cardiovascular Exam: REGULAR RHYTHM - GI/Abdominal Exam GI & Abdominal Exam: Soft, Tenderness (RLQ ), Normal Bowel Sounds. absent: Distended - Extremities Exam Extremities Exam: Normal Inspection. absent: Pedal Edema, Tenderness - Neurological Exam Neurological Exam: Alert, Awake, Oriented x3 - Psychiatric Exam Psychiatric exam: Normal Affect, Normal Mood - Skin Skin Exam: Dry, Intact, Normal Color, Warm Assessment and Plan - Assessment and Plan (Free Text) Plan: Ileitis-->Possible Crohn's Disease Assessment and Plan: * Fluids: D5 1/2 NS with KCL at 100cc/hr * Severe ileitis on prior CT, (+) N/V, abdominal pain, 40lb weight loss over the span of 6 months * CT abdomen/pelvis (03/16/17): severe inflammatory changes in RLQ and pelvis likely representing severe ilelitis. No evidence of free air, loculated air or drainable collection. No evidence of proximal bowel obstruction. * (+) FOBT, C.diff neg * Fecal leukocytes, ova and parasite, stool culture - all negative * on 03/19/17 * IgA: 221 * Tissue transglutamin A: 1 (antibody not detected) * Celiac panel: no serological evidence of celiac disease * GI (Dr. Shay) on board * EGD and Colonoscopy today. * EGD:Large hiatal hernia but otherwise normal. Duodenal biopsies taken to exclude Celiac disease. No duodenal ulceration or stricture seen. * Colonoscopy: Nodularity of ileocecal valve and minimally intubated terminal ileum c/w likely Crohn's disease. Remainder of colon was normal. Stool aspirated and sent for microbiological studies. * Dr Shay recommendations: Begin Pentasa 1000mg po Q6H, Prednisone 40mg po daily (split dose). Discharge to outpatient followup in the GI Clinic if stable and tolerating diet. Advise UGI and SBS to delineate extent of ileal involvement. If not may need Pillcam as outpatient through clinic. * Dr. RUSSELL recommendation: "Patient appears clinically stable for discharge as long as she is followed closely by the medical/GI clinic as now on emperic steroids.Will also need 5-ASA for first aid attendant management. Pentasa offers best small bowel delivery system compared to other 5-ASA's. Await biopsy and serologic studies pending. Discussed steroid side effects and need for gradual tapering by clinic. May ultimately be candidate for Biologic. Will discuss with her employer about eligibility for medical insurance coverage in the future. No further GI work up needed at present. " * F/U GI SERIES w/ small bowel Status: Acute Urinary Tract Infection Assessment and Plan: * Suprapubic Tenderness on exam * UA: + blood, + LE * Urine culture - no growth * Bactrim DS Q12H day 09/06 Status: Acute Iron deficiency anemia Assessment and Plan: * Iron deficiency anemia * Serum iron- 11, TIBC- 165, ferritin- 70.3 * Per review of EMR, Hgb in 8-9s (from 11/09/16 on) * RBC consent obtained by resident, risks and benefits discussed with patient * Patient recently finished period last week, about 2-3 days of cycle, reports they are normal * Ferrlecit 125mg IVP daily x 5 days * 03/16/17 pelvic US: no evidence of adenexal torsion. Multiple subcentimeter follicles bilaterally. complex cysts right adnexa 1.8 X 2.1 X2 cm * Refused MAIDA exam Status: Chronic Prophylactic measure Assessment and Plan: * DVT: not indicated * GI: protonix 40mg po daily * Diet: will resume FLD after GI SERIES Status: Acute DW Aiyana Arzola DO, PGY-1 <Wendy Dior V - Last Filed: 04/06/17 16:26> Objective - Vital Signs/Intake and Output Vital Signs (last 24 hours): Temp Pulse Resp BP Pulse Ox 98.4 F 72 20 105/71 99 04/02/17 16:00 04/02/17 16:00 04/02/17 16:00 04/02/17 16:00 04/02/17 16:00 - Labs Labs: 04/02/17 07:02 04/02/17 07:02 Attending/Attestation - Attestation I have personally seen and examined this patient.: Yes I have fully participated in the care of the patient.: Yes I have reviewed all pertinent clinical information, including history, physical exam and plan: Yes Notes (Text): This is late computer entry for 04/01/17. Patient seen, examined and case discussed with day-time resident. Patient seen status post UGI Series. Discussed with GI following completion and official report regarding the UGI with small bowel series. Patient seen post-completion of UGI with small bowel series. Patient eager to regular food. Patient reports she hates the hospital food. patient denies nausea, denies vomitting and patient seen with majority of her salad eaten. Advised her mother can bring her food from home. Recommended by GI, Prednisone taper starting 40mg PO daily and taper down weekly by 5mg if clinically improving; Described with patient at bedside this afternoon. Patient also recommended for Pentasa. Will try to arrange with the outpatient pharmacy to secure patient medication prior to discharge. Patient is aware that Crohn's Disease will need routine follow-up with primary care doctor and soaker meat. 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 Spoke with clinical quality assurance specialist Dr Keith jules prior, patient has a follow-up appointment from hospitalization on April 14, 2017 and will be provided referral to GI at that appointment. Assessment/Plan (1) Ileitis-->Possible Crohn's Disease Assessment and Plan: * GI (Dr. Shay) on board-->help appreciated * s/p EGD and colonoscopy 03/31/17 * Per EGD: Large hiatal hernia but otherwise normal. Duodenal biopsies taken to exclude Celiac disease. No duodenal ulceration or stricture seen. * Per Colonoscopy: Nodularity of ileocecal valve and minimally intubated terminal ileum c/w likely Crohn's disease. Remainder of colon was normal. Stool aspirated and sent for microbiological studies. * Rec: Begin Pentasa 1000mg po Q6H; Prednisone 40mg po daily (split dose); Must have UGI prior to discharge. Advise UGI and SBS to delineate extent of ileal involvement. If not may need Pillcam as outpatient through clinic. ( Concern for capsule retention) * Severe ileitis on prior CT, (+) N/V, abdominal pain, 40lb weight loss over the span of 6 months * CT abdomen/pelvis (03/16/17): severe inflammatory changes in RLQ and pelvis likely representing severe ilelitis. No evidence of free air, loculated air or drainable collection. No evidence of proximal bowel obstruction. * 04/01: UGI with small bowel series: thickening with marked mucosal irregularity of the distal small bowel, most prominently noted at the level of the terminal ileum, concerning for underlying severe acute infectious and/or inflammatory process such a Crohn's disease. Distended loops of small in mid and lower abdomen. Delayed transity time to the terminal ileum * on 03/19/17 * IgA: 221 * Tissue transglutamin A: 1 (antibody not detected) * Celiac panel: no serological evidence of celiac disease * fecal leukocytes +, ova and parasite negative X2, FOBT ordered; Patient had refused MAIDA on Wednesday * patient refused rectal exam 03/29/17. * Fluids: D5 1/2 NS with KCL at 100cc/hr Status: Acute (2) Iron deficiency anemia Assessment and Plan: * Iron deficiency anemia * Serum iron- 11, TIBC- 165, ferritin- 70.3 * Per review of EMR, Hgb in 8-9s (from 11/09/16 on) * RBC consent obtained by resident, risks and benefits discussed with patient * Patient recently finished period last week, about 2-3 days of cycle, reports they are normal * Ferrlecit 125mg IVP daily x 5 days * 03/16/17 pelvic US: no evidence of adenexal torsion. Multiple subcentimeter follicles bilaterally. complex cysts right adnexa 1.8 X 2.1 X2 cm * Refused MAIDA exam Status: Chronic (3) Prophylactic measure Assessment and Plan: * DVT: not indicated * GI: protonix 40mg po daily * Diet: Clear liquid; advance diet to regular Status: Acute
[2017-04-01] MEDS: Ferric Sodium Gluconat Complex 62.5 mg/5 ml Vial IVPB SCH (10:23)
[2017-04-01] MEDS: Tmp-Smz 800 mg-160 mg DS Tab PO SCH ×2 (10:23→21:43)
[2017-04-01] MEDS: Saccharomyces Boulardi 250 mg Cap PO SCH (10:23)
[2017-04-01] MEDS: Pantoprazole 40 mg EC Tab PO SCH (10:23)
--- NOTE | 2017-04-01 10:30 | CP.PCM.PN ---
Subjective - Date & Time of Evaluation Date of Evaluation: 04/01/17 Time of Evaluation: 10:27 - Subjective Subjective: Tolerated liquid diet yesterday. NO pain or vomiting. No diarrhea Awaiting UGI/sbs today Objective - Vital Signs/Intake and Output Vital Signs (last 24 hours): Temp Pulse Resp BP Pulse Ox 97.5 F L 72 20 89/51 L 98 04/01/17 07:42 04/01/17 07:42 04/01/17 07:42 04/01/17 07:42 04/01/17 07:42 Intake and Output: 04/01/17 04/01/17 06:59 18:59 Intake Total 1600 Balance 1600 - Medications Medications: Current Medications Ferric Sodium Gluconate Complex (Ferrlecit) 125 mg IVPB DAILY [facility] Stop: 04/03/17 10:01 Last Admin: 04/01/17 10:23 Dose: 125 mg Potassium Chloride 20 meq/ (Dextrose/Sodium Chloride) 1,010 mls @ 100 mls/hr IV .Q10H6M [facility] Last Admin: 04/01/17 01:54 Dose: 100 mls/hr Mesalamine (Delzicol) 800 mg PO TIDCC [facility] Last Admin: 04/01/17 08:44 Dose: 800 mg Ondansetron HCl (Zofran Inj) 4 mg IVP Q4H PRN PRN Reason: Nausea/Vomiting Last Admin: 03/30/17 12:54 Dose: 4 mg Pantoprazole Sodium (Protonix Ec Tab) 40 mg PO DAILY [facility] Last Admin: 04/01/17 10:23 Dose: 40 mg Prednisone (Prednisone Tab) 20 mg PO BID [facility] Last Admin: 04/01/17 10:23 Dose: 20 mg Saccharomyces Boulardii (Florastor) 250 mg PO BID [facility] Last Admin: 04/01/17 10:23 Dose: 250 mg Trimethoprim/Sulfamethoxazole (Bactrim Ds Tab) 1 tab PO Q12H [facility] Last Admin: 04/01/17 10:23 Dose: 1 tab - Labs Labs: 04/01/17 06:23 04/01/17 06:23 - Constitutional Appears: No Acute Distress - Head Exam Head Exam: ATRAUMATIC, NORMOCEPHALIC - Eye Exam Eye Exam: EOMI, PERRL - Respiratory Exam Respiratory Exam: NORMAL BREATHING PATTERN - Cardiovascular Exam Cardiovascular Exam: REGULAR RHYTHM, +S1 - GI/Abdominal Exam GI & Abdominal Exam: Soft, Normal Bowel Sounds. absent: Distended, Firm, Rigid , Tenderness, Mass, Rebound - Rectal Exam Rectal Exam: Deferred - Extremities Exam Extremities Exam: Normal Inspection Assessment and Plan - Assessment and Plan (Free Text) Assessment: Distal ileitis c/w Crohns disease Anemia Weight Loss N/V - resolved Rec/ Patient appears clinically stable for discharge as long as she is followed closely by the medical/GI clinic as now on emperic steroids. Will also need 5-ASA for terminal operator management. Pentasa offers best small bowel delivery system compared to other 5-ASA's. Await biopsy and serologic studies pending. Discussed steroid side effects and need for gradual tapering by clinic. May ultimately be candidate for Biologic. Will discuss with her employer about eligibility for medical insurance coverage in the future. No further GI work up needed at present. Recall as needed, thank you.
[2017-04-01] MEDS ORDERED: Barium Sulfate for Susp 96% w/w 176g Bottle PR ONE (11:31)
[2017-04-01] MEDS ORDERED: Barium Sulfate for Susp 98% w/w 340g Bottle ONE (11:32)
--- NOTE | 2017-04-01 16:08 | RAD ---
PROCEDURE: Upper GI with small bowel series. HISTORY: Ileitis. Evaluate for Crohn's disease. COMPARISON: None available. TECHNIQUE: Fluoroscopic evaluation of the esophagus stomach and small bowel was performed following administration of oral contrast. FINDINGS: Esophagus: Unremarkable, without gross mucosal abnormality, mass lesion, stricture or obstruction. Hiatal hernia: None. Reflux: None observed. Stomach: Thickening of the gastric mucosa concerning for an underlying gastritis. Small bowel: Thickening with marked mucosal irregularity of the distal small bowel, most prominently noted at the level of the terminal ileum, concerning for underlying severe acute infectious and or inflammatory process such as Crohn's disease. Clinical correlation. Post treatment followup CT scan may be helpful if clinically indicated. Distended loops of small bowel in the mid and lower abdomen. Delayed transit time to the terminal ileum measuring up to 2 hours. IMPRESSION: 1. Thickening with marked mucosal irregularity of the distal small bowel, most prominently noted at the level of the terminal ileum, concerning for underlying severe acute infectious and or inflammatory process such as Crohn's disease. Clinical correlation. Post treatment followup CT scan may be helpful if clinically indicated. Distended loops of small bowel in the mid and lower abdomen. Delayed transit time to the terminal ileum measuring up to 2 hours. 2. Thickening of the gastric mucosa concerning for an underlying gastritis.
[2017-04-02 01:05] LABS: ASCA IGA <20.0 U; ASCA IGG 31.9 U
--- NOTE | 2017-04-02 07:16 | CP.PCM.DIS ---
<Anabelle Bronson - Last Filed: 04/02/17 19:23> Provider - Provider Date of Admission: 03/29/17 21:09 Attending physician: Wendy Dior DO Time Spent in preparation of Discharge (in minutes): 55 Hospital Course - Lab Results Lab Results: Micro Results 03/30/17 22:42 Stool Stool Culture - Final NO SALMONELLA, SHIGELLA OR CAMPYLOBACTER ISOLATED. 03/30/17 22:42 Stool Ova and Parasite Concentrate Exam - Final 03/30/17 11:34 Urine,Clean Catch Urine Culture - Final No Growth (<1,000 CFU/ML) 03/31/17 10:40 Stool Ova and Parasite Concentrate Exam - Final Most Recent Lab Values WBC 9.8 K/uL (4.8-10.8) 04/01/17 06:23 RBC 3.53 Mil/uL (3.80-5.20) L 04/01/17 06:23 Hgb 8.1 g/dL (11.0-16.0) L 04/01/17 06:23 Hct 25.0 % (34.0-47.0) L 04/01/17 06:23 MCV 70.7 fL (81.0-99.0) L 04/01/17 06:23 MCH 23.0 pg (27.0-31.0) L 04/01/17 06:23 MCHC 32.5 g/dL (33.0-37.0) L 04/01/17 06:23 RDW 15.5 % (11.5-14.5) H 04/01/17 06:23 Plt Count 492 K/uL (130-400) H 04/01/17 06:23 MPV 7.1 fL (7.2-11.7) L 04/01/17 06:23 Neut % (Auto) 79.5 % (50.0-75.0) H 04/01/17 06:23 Lymph % (Auto) 14.6 % (20.0-40.0) L 04/01/17 06:23 [place] % (Auto) 5.7 % (0.0-10.0) 04/01/17 06:23 Eos % (Auto) 0.1 % (0.0-4.0) 04/01/17 06:23 Baso % (Auto) 0.1 % (0.0-2.0) 04/01/17 06:23 Neut # 7.8 K/uL (1.8-7.0) H 04/01/17 06:23 Lymph # 1.4 K/uL (1.0-4.3) 04/01/17 06:23 [place] # 0.6 K/uL (0.0-0.8) 04/01/17 06:23 Eos # 0.0 K/uL (0.0-0.7) 04/01/17 06:23 Baso # 0.0 K/uL (0.0-0.2) 04/01/17 06:23 Differential Comment 03/28/17 21:09 ESR 75 mm/hr (0-20) H 03/29/17 06:43 Sodium 136 mmol/L (132-148) 04/01/17 06:23 Potassium 4.6 mmol/L (3.6-5.2) 04/01/17 06:23 Chloride 102 mmol/L (98-107) 04/01/17 06:23 Carbon Dioxide 22 mmol/L (22-30) 04/01/17 06:23 Anion Gap 16 (10-20) 04/01/17 06:23 BUN 4 mg/dL (7-17) L 04/01/17 06:23 Creatinine 0.6 MG/DL (0.7-1.2) L 04/01/17 06:23 Est GFR ( Amer) > 60 04/01/17 06:23 Est GFR (Non-Af Amer) > 60 04/01/17 06:23 Random Glucose 115 mg/dL (65-105) H 04/01/17 06:23 Calcium 9.1 mg/dl (8.6-10.4) 04/01/17 06:23 Phosphorus 3.3 mg/dL (2.5-4.5) 03/28/17 20:55 Magnesium 1.9 mg/dL (1.6-2.3) 03/28/17 20:55 Iron 11 ug/dL (37-170) L 03/29/17 06:43 TIBC 165 ug/dL (250-450) L 03/29/17 06:43 % Saturation 7 (20-55) L 03/29/17 06:43 Ferritin 70.3 ng/mL 03/29/17 06:43 Total Bilirubin 0.2 mg/dL (0.2-1.3) 04/01/17 06:23 AST 16 U/L (14-36) 04/01/17 06:23 ALT 18 U/L (9-52) 04/01/17 06:23 Alkaline Phosphatase 40 U/L (38-126) 04/01/17 06:23 C-React Prot High Sens > 15.00 mg/L (1.00-3.00) H 03/30/17 07:02 Total Protein 6.1 g/dL (6.3-8.3) L 04/01/17 06:23 Albumin 3.0 g/dL (3.5-5.0) L 04/01/17 06:23 Globulin 3.1 gm/dL (2.2-3.9) 04/01/17 06:23 Albumin/Globulin Ratio 1.0 (1.0-2.1) 04/01/17 06:23 Lipase 29 U/L (23-300) 03/28/17 20:55 Urine Color Yellow (YELLOW) 03/30/17 15:50 Urine Clarity Clear (Clear) 03/30/17 15:50 Urine pH 7.0 (5.0-8.0) 03/30/17 15:50 Ur Specific [place] 1.008 (1.003-1.030) 03/30/17 15:50 Urine Protein Negative mg/dL (NEGATIVE) 03/30/17 15:50 Urine Glucose (UA) Normal mg/dL (Normal) 03/30/17 15:50 Urine Ketones Negative mg/dL (NEGATIVE) 03/30/17 15:50 Urine Blood 1+ (NEGATIVE) H 03/30/17 15:50 Urine Nitrate Negative (NEGATIVE) 03/30/17 15:50 Urine Bilirubin Negative (NEGATIVE) 03/30/17 15:50 Urine Urobilinogen Normal mg/dL (0.2-1.0) 03/30/17 15:50 Ur Leukocyte Esterase 3+ Crispin/uL (Negative) H 03/30/17 15:50 Urine WBC (Auto) 18 /hpf (0-5) H 03/30/17 15:50 Urine RBC (Auto) 5 /hpf (0-3) H 03/30/17 15:50 Ur Squamous Epith Cells 1 /hpf (0-5) 03/30/17 15:50 Urine Bacteria Rare (<OCC) 03/30/17 15:50 Urine HCG, Qual Negative (NEGATIVE) 03/31/17 06:02 Stool Leukocytes, Qual Positive (NEGATIVE) H 03/30/17 22:43 IgA 200 mg/dL (81-463) 03/30/17 07:02 Proteinase 3 (PR3) <1.0 AI (<1.0) 03/30/17 07:02 Myeloperoxidase Ab <1.0 AI (<1.0) 03/30/17 07:02 Endomysial IgA Ab Titer TEST NOT PERFORMED 03/30/17 07:02 Endomysial IgA Ab TEST NOT PERFORMED 03/30/17 07:02 Tiss Transglutamin IgA 1 U/mL 03/30/17 07:02 Celiac Disease Interp See note 03/30/17 07:02 C. difficile Ag & Toxin Negative (NEGATIVE) 03/31/17 10:42 S.cerevisiae IgG Ab 31.9 U H 03/30/17 07:02 S.cerevisiae IgA Ab <20.0 U 03/30/17 07:02 Blood Type B POSITIVE 03/29/17 14:13 Blood Type Confirm B POSITIVE 03/29/17 14:13 Antibody Screen Negative 03/29/17 14:13 - Hospital Course Hospital Course: Upon Admission: 21 yo F with a PMHx of iron deficiency anemia presented to the ED for rated 10/ 10 periumbilical abdominal pain that's been ongoing for the past 1 year. Associated symptoms include nausea, non-bloody/non-bilious vomiting, 40lb weight loss in the last 4 months, and intermittent lower extremity swelling bilaterally. She states the vomiting begins a few minutes after she eats and is the consistency of her previous meal. She takes tylenol and pepcid for her abdominal pain with minor relief. She's had many previous ED visits for the same complaint. Her last visit was on 03/16/17, she was diagnosed with severe ileitis and discharged on flagyl and vantin and told to follow up with GI specialist, Dr Vega. Patient states she followed up with Dr Vega who recommended endoscopy and colonoscopy. She denies diarrhea, hematochezia, or hematemesis. 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; works at [employer] FamHx: Grandmother with DM2, HTN; no history of colon cancer in family or bowel related diseases Throughout Hospital Course: Patient was admitted for ileitis. Patient is to continue taking Sulfasalazine 1000mg PO TID x 14 days until she has he appointment at the [facility] where she can complete the application for [employer] which is a program added to help afford Crohn's disease medications such as Delzicol ( which we originally prescribed for her but due to lack of insurance the cost of a 30 day supply was too financially costly). Ileitis Assessment and Plan: Diagnosed during this admission: Crohn's Disease * Fluids: D5 1/2 NS with KCL at 100cc/hr * Severe ileitis on prior CT, (+) N/V, abdominal pain, 40lb weight loss over the span of 6 months * CT abdomen/pelvis (03/16/17): severe inflammatory changes in RLQ and pelvis likely representing severe ilelitis. No evidence of free air, loculated air or drainable collection. No evidence of proximal bowel obstruction. * (+) FOBT, C.diff neg * Fecal leukocytes, ova and parasite, stool culture - all negative * on 03/19/17 * IgA: 221 * Tissue transglutamin A: 1 (antibody not detected) * Celiac panel: no serological evidence of celiac disease * GI (Dr. Shay) on board * EGD and Colonoscopy today. * EGD:Large hiatal hernia but otherwise normal. Duodenal biopsies taken to exclude Celiac disease. No duodenal ulceration or stricture seen. * Colonoscopy: Nodularity of ileocecal valve and minimally intubated terminal ileum c/w likely Crohn's disease. Remainder of colon was normal. Stool aspirated and sent for microbiological studies. * Dr Shay recommendations: Begin Pentasa 1000mg po Q6H, Prednisone 40mg po daily (split dose). Discharge to outpatient followup in the GI Clinic if stable and tolerating diet. Advise UGI and SBS to delineate extent of ileal involvement. If not may need Pillcam as outpatient through clinic. * Dr. RUSSELL recommendation: "Patient appears clinically stable for discharge as long as she is followed closely by the medical/GI clinic as now on emperic steroids.Will also need 5-ASA for shelter management. Pentasa offers best small bowel delivery system compared to other 5-ASA's. Await biopsy and serologic studies pending. Discussed steroid side effects and need for gradual tapering by clinic. May ultimately be candidate for Biologic. Will discuss with her employer about eligibility for medical insurance coverage in the future. No further GI work up needed at present. " * GI SERIES w/ small bowel: 1. Thickening with marked mucosal irregularity of the distal small bowel, most prominently noted at the level of the terminal ileum, concerning for underlying severe acute infectious and or inflammatory process such as Crohn's disease. Clinical correlation. Post treatment followup CT scan may be helpful if clinically indicated. Distended loops of small bowel in the mid and lower abdomen. Delayed transit time to the terminal ileum measuring up to 2 hours. Thickening of the gastric mucosa concerning for an underlying gastritis. Status: Acute Urinary Tract Infection Assessment and Plan: * Suprapubic Tenderness on exam * UA: + blood, + LE * Urine culture - no growth * Bactrim DS Q12H day 10/07 - she was discharged with 1 days worth of bactrim to complete her course Status: Acute Iron deficiency anemia Assessment and Plan: * Iron deficiency anemia * Serum iron- 11, TIBC- 165, ferritin- 70.3 * Per review of EMR, Hgb in 8-9s (from 11/09/16 on) * RBC consent obtained by resident, risks and benefits discussed with patient * Patient recently finished period last week, about 2-3 days of cycle, reports they are normal * Ferrlecit 125mg IVP daily x 5 days * 03/16/17 pelvic US: no evidence of adenexal torsion. Multiple subcentimeter follicles bilaterally. complex cysts right adnexa 1.8 X 2.1 X2 cm * Refused MAIDA exam Status: Chronic This is a brief summary of the patient's hospital course, please review EMR for full record. Discharge Exam - Head Exam Head Exam: ATRAUMATIC, NORMOCEPHALIC - Additional Findings Additional findings: - Constitutional Appears: No Acute Distress - Head Exam Head Exam: NORMAL INSPECTION, NORMOCEPHALIC - Eye Exam Eye Exam: EOMI, Normal appearance, PERRL Pupil Exam: NORMAL ACCOMODATION - ENT Exam ENT Exam: Mucous Membranes Moist - Respiratory Exam Respiratory Exam: Clear to Ausculation Bilateral, NORMAL BREATHING PATTERN - Cardiovascular Exam Cardiovascular Exam: REGULAR RHYTHM - GI/Abdominal Exam GI & Abdominal Exam: Soft, Tenderness (RLQ ), Normal Bowel Sounds. absent: Distended - Extremities Exam Extremities Exam: Normal Inspection. absent: Pedal Edema, Tenderness - Neurological Exam Neurological Exam: Alert, Awake, Oriented x3 - Psychiatric Exam Psychiatric exam: Normal Affect, Normal Mood - Skin Skin Exam: Dry, Intact, Normal Color, Warm Discharge Plan - Discharge Medications Prescriptions: Sulfamethoxazole/Trimethoprim [Bactrim DS 800 mg-160 mg] 1 tab PO Q12 #2 tab SulfaSALAzine [Azulfidine] 1,000 mg PO TID #42 tab - Follow Up Plan Condition: FAIR Disposition: HOME/ ROUTINE Instructions: Sulfamethoxazole/Trimethoprim (By mouth), Prednisone (By mouth), Sulfasalazine (By mouth), Colonoscopy (DC), Crohn Disease (DC), Upper Endoscopy (DC) Additional Instructions: Please take bactrim 1 tab by every 12 hours for 1 day (wednesday). Patient is to continue taking Sulfalazine 1000mg by mouth 3 times a day for the next 2 weeks. You will need refills and possible change of medication pending approval of the mesalamine assistance we applied you for. You will start a prednisone taper to be taken as noted below: Prednisone 5 mg by mouth x 8 pills a day for week 1 = 40mg total Prednisone 5mg by mouth x 7 pills a day for week 2 = 35mg total Prednisone 5 mg by mouth x 6 pills a day for week 3 = 30mg total Prednisone 5mg by mouth x 5 pills a day for week 4 = 25mg total Prednisone 5mg by mouth x 4 pills a day for week 5 = 20mg total Prednisone 5mg by mouth x 3 pills a day for week 6 = 15mg total Prednisone 5mg by mouth x 2 pills a day for week 7 = 10mg total Prednisone 5mg by mouth once a day for week 8 = 5mg total You are scheduled to have an appointment at the [facility] here at [place] on Wednesday , April 14 at 10am. Please make the appointment, so that you can get a referral for a GI specialist (stomach Doctor) to help you manage your Crohn's disease. Please return to the ED if your symptoms worsen or return. Referrals: [facility] [Outside] <Wendy Dior V - Last Filed: 04/06/17 17:16> Provider - Provider Date of Admission: 03/29/17 21:09 Attending physician: Wendy Dior, Hospital Course - Lab Results Lab Results: Micro Results 03/31/17 10:40 Stool Stool Culture - Final NO SALMONELLA, SHIGELLA OR CAMPYLOBACTER ISOLATED. 03/30/17 22:42 Stool Stool Culture - Final NO SALMONELLA, SHIGELLA OR CAMPYLOBACTER ISOLATED. 03/30/17 22:42 Stool Ova and Parasite Concentrate Exam - Final 03/30/17 11:34 Urine,Clean Catch Urine Culture - Final No Growth (<1,000 CFU/ML) 03/31/17 10:40 Stool Ova and Parasite Concentrate Exam - Final Most Recent Lab Values WBC 15.4 K/uL (4.8-10.8) H D 04/02/17 07:02 RBC 3.58 Mil/uL (3.80-5.20) L 04/02/17 07:02 Hgb 8.3 g/dL (11.0-16.0) L 04/02/17 07:02 Hct 25.5 % (34.0-47.0) L 04/02/17 07:02 MCV 71.2 fL (81.0-99.0) L 04/02/17 07:02 MCH 23.0 pg (27.0-31.0) L 04/02/17 07:02 MCHC 32.4 g/dL (33.0-37.0) L 04/02/17 07:02 RDW 15.4 % (11.5-14.5) H 04/02/17 07:02 Plt Count 565 K/uL (130-400) H 04/02/17 07:02 MPV 7.3 fL (7.2-11.7) 04/02/17 07:02 Neut % (Auto) 80.6 % (50.0-75.0) H 04/02/17 07:02 Lymph % (Auto) 12.7 % (20.0-40.0) L 04/02/17 07:02 [place] % (Auto) 6.6 % (0.0-10.0) 04/02/17 07:02 Eos % (Auto) 0.0 % (0.0-4.0) 04/02/17 07:02 Baso % (Auto) 0.1 % (0.0-2.0) 04/02/17 07:02 Neut # 12.4 K/uL (1.8-7.0) H 04/02/17 07:02 Lymph # 2.0 K/uL (1.0-4.3) 04/02/17 07:02 [place] # 1.0 K/uL (0.0-0.8) H 04/02/17 07:02 Eos # 0.0 K/uL (0.0-0.7) 04/02/17 07:02 Baso # 0.0 K/uL (0.0-0.2) 04/02/17 07:02 Differential Comment 03/28/17 21:09 ESR 75 mm/hr (0-20) H 03/29/17 06:43 Sodium 140 mmol/L (132-148) 04/02/17 07:02 Potassium 4.5 mmol/L (3.6-5.2) 04/02/17 07:02 Chloride 100 mmol/L (98-107) 04/02/17 07:02 Carbon Dioxide 23 mmol/L (22-30) 04/02/17 07:02 Anion Gap 21 (10-20) H 04/02/17 07:02 BUN 8 mg/dL (7-17) 04/02/17 07:02 Creatinine 0.8 MG/DL (0.7-1.2) 04/02/17 07:02 Est GFR ( Amer) > 60 04/02/17 07:02 Est GFR (Non-Af Amer) > 60 04/02/17 07:02 Random Glucose 94 mg/dL (65-105) 04/02/17 07:02 Calcium 9.0 mg/dl (8.6-10.4) 04/02/17 07:02 Phosphorus 3.3 mg/dL (2.5-4.5) 03/28/17 20:55 Magnesium 1.9 mg/dL (1.6-2.3) 03/28/17 20:55 Iron 11 ug/dL (37-170) L 03/29/17 06:43 TIBC 165 ug/dL (250-450) L 03/29/17 06:43 % Saturation 7 (20-55) L 03/29/17 06:43 Ferritin 70.3 ng/mL 03/29/17 06:43 Total Bilirubin 0.3 mg/dL (0.2-1.3) 04/02/17 07:02 AST 24 U/L (14-36) 04/02/17 07:02 ALT 17 U/L (9-52) 04/02/17 07:02 Alkaline Phosphatase 42 U/L (38-126) 04/02/17 07:02 C-React Prot High Sens > 15.00 mg/L (1.00-3.00) H 03/30/17 07:02 Total Protein 6.7 g/dL (6.3-8.3) 04/02/17 07:02 Albumin 3.2 g/dL (3.5-5.0) L 04/02/17 07:02 Globulin 3.5 gm/dL (2.2-3.9) 04/02/17 07:02 Albumin/Globulin Ratio 0.9 (1.0-2.1) L 04/02/17 07:02 Lipase 29 U/L (23-300) 03/28/17 20:55 Urine Color Yellow (YELLOW) 03/30/17 15:50 Urine Clarity Clear (Clear) 03/30/17 15:50 Urine pH 7.0 (5.0-8.0) 03/30/17 15:50 Ur Specific [place] 1.008 (1.003-1.030) 03/30/17 15:50 Urine Protein Negative mg/dL (NEGATIVE) 03/30/17 15:50 Urine Glucose (UA) Normal mg/dL (Normal) 03/30/17 15:50 Urine Ketones Negative mg/dL (NEGATIVE) 03/30/17 15:50 Urine Blood 1+ (NEGATIVE) H 03/30/17 15:50 Urine Nitrate Negative (NEGATIVE) 03/30/17 15:50 Urine Bilirubin Negative (NEGATIVE) 03/30/17 15:50 Urine Urobilinogen Normal mg/dL (0.2-1.0) 03/30/17 15:50 Ur Leukocyte Esterase 3+ Crispin/uL (Negative) H 03/30/17 15:50 Urine WBC (Auto) 18 /hpf (0-5) H 03/30/17 15:50 Urine RBC (Auto) 5 /hpf (0-3) H 03/30/17 15:50 Ur Squamous Epith Cells 1 /hpf (0-5) 03/30/17 15:50 Urine Bacteria Rare (<OCC) 03/30/17 15:50 Urine HCG, Qual Negative (NEGATIVE) 03/31/17 06:02 Stool Leukocytes, Qual Positive (NEGATIVE) H 03/30/17 22:43 IgA 200 mg/dL (81-463) 03/30/17 07:02 ANCA Screen Negative (NEGATIVE) 03/30/17 07:02 c-ANCA Titer TNP 03/30/17 07:02 Proteinase 3 (PR3) <1.0 AI (<1.0) 03/30/17 07:02 p-ANCA Titer TNP 03/30/17 07:02 Atypical p-ANCA Titer TNP 03/30/17 07:02 Myeloperoxidase Ab <1.0 AI (<1.0) 03/30/17 07:02 Endomysial IgA Ab Titer TEST NOT PERFORMED 03/30/17 07:02 Endomysial IgA Ab TEST NOT PERFORMED 03/30/17 07:02 Tiss Transglutamin IgA 1 U/mL 03/30/17 07:02 Celiac Disease Interp See note 03/30/17 07:02 C. difficile Ag & Toxin Negative (NEGATIVE) 03/31/17 10:42 S.cerevisiae IgG Ab 31.9 U H 03/30/17 07:02 S.cerevisiae IgA Ab <20.0 U 03/30/17 07:02 Blood Type B POSITIVE 03/29/17 14:13 Blood Type Confirm B POSITIVE 03/29/17 14:13 Antibody Screen Negative 03/29/17 14:13 Attending/Attestation - Attestation I have personally seen and examined this patient.: Yes I have fully participated in the care of the patient.: Yes I have reviewed all pertinent clinical information, including history, physical exam and plan: Yes Notes (Text): Assessment/Plan (1) Ileitis-->Possible Crohn's Disease Assessment and Plan: * GI (Dr. Shay) on board-->help appreciated * s/p EGD and colonoscopy 03/31/17 * Per EGD: Large hiatal hernia but otherwise normal. Duodenal biopsies taken to exclude Celiac disease. No duodenal ulceration or stricture seen. * Per Colonoscopy: Nodularity of ileocecal valve and minimally intubated terminal ileum c/w likely Crohn's disease. Remainder of colon was normal. Stool aspirated and sent for microbiological studies. * Rec: Begin Pentasa 1000mg po Q6H; Prednisone 40mg po daily (split dose); Must have UGI prior to discharge. Advise UGI and SBS to delineate extent of ileal involvement. If not may need Pillcam as outpatient through clinic. ( Concern for capsule retention) * Severe ileitis on prior CT, (+) N/V, abdominal pain, 40lb weight loss over the span of 6 months * CT abdomen/pelvis (03/16/17): severe inflammatory changes in RLQ and pelvis likely representing severe ilelitis. No evidence of free air, loculated air or drainable collection. No evidence of proximal bowel obstruction. * 04/01: UGI with small bowel series: thickening with marked mucosal irregularity of the distal small bowel, most prominently noted at the level of the terminal ileum, concerning for underlying severe acute infectious and/or inflammatory process such a Crohn's disease. Distended loops of small in mid and lower abdomen. Delayed transity time to the terminal ileum * on 03/19/17 * IgA: 221 * Tissue transglutamin A: 1 (antibody not detected) * Celiac panel: no serological evidence of celiac disease * fecal leukocytes +, ova and parasite negative X2, FOBT ordered; Patient had refused MAIDA on Wednesday * patient refused rectal exam 03/29/17. * Fluids: D5 1/2 NS with KCL at 100cc/hr Status: Acute (2) Iron deficiency anemia Assessment and Plan: * Iron deficiency anemia * Serum iron- 11, TIBC- 165, ferritin- 70.3 * Per review of EMR, Hgb in 8-9s (from 11/09/16 on) * RBC consent obtained by resident, risks and benefits discussed with patient * Patient recently finished period last week, about 2-3 days of cycle, reports they are normal * Ferrlecit 125mg IVP daily x 5 days * 03/16/17 pelvic US: no evidence of adenexal torsion. Multiple subcentimeter follicles bilaterally. complex cysts right adnexa 1.8 X 2.1 X2 cm * Refused MAIDA exam Status: Chronic (3) Prophylactic measure Assessment and Plan: * DVT: not indicated * GI: protonix 40mg po daily * Diet: Clear liquid; advance diet to regular Status: Acute
[2017-04-02 07:20] LABS: BASO % 0.1 % (0.0-2.0)
[2017-04-02 07:25] LABS: HEMATOCRIT 25.5 % (34.0-47.0); LYMPH % 12.7 % (20.0-40.0); MEAN CELL VOLUME 71.2 fL (81.0-99.0); MEAN CORPUSCULAR HGB CONC 32.4 g/dL (33.0-37.0); MEAN PLATELET VOLUME 7.3 fL (7.2-11.7); MONO % 6.6 % (0.0-10.0); RED CELL DISTRIBUTION WIDTH 15.4 % (11.5-14.5)
[2017-04-02 07:26] LABS: WHITE BLOOD COUNT 15.4 K/uL (4.8-10.8)
[2017-04-02 07:41] LABS: CHLORIDE 100 mmol/L (98-107); SODIUM 140 mmol/L (132-148)
[2017-04-02 07:42] LABS: POTASSIUM 4.5 mmol/L (3.6-5.2)
[2017-04-02 07:44] LABS: ALB/GLOB RATIO 0.9 (1.0-2.1); ALKALINE PHOSPHATASE 42 U/L (38-126); ALT/SGPT 17 U/L (9-52); AST/SGOT 24 U/L (14-36); BILIRUBIN,TOTAL 0.3 mg/dL (0.2-1.3); BLOOD UREA NITROGEN 8 mg/dL (7-17); CARBON DIOXIDE 23 mmol/L (22-30); GFR AFRICAN-AMERICAN > 60; GLUCOSE,RANDOM 94 mg/dL (65-105); TOTAL PROTEIN 6.7 g/dL (6.3-8.3)
[2017-04-02] MEDS: Tmp-Smz 800 mg-160 mg DS Tab PO SCH (09:44)
[2017-04-02] MEDS: Ferric Sodium Gluconat Complex 62.5 mg/5 ml Vial IVPB SCH (09:45)
[2017-04-02] MEDS: Pantoprazole 40 mg EC Tab PO SCH (09:47)
[2017-04-02 17:34] VITALS: BP 105/71; PULSE 72; TEMP 98.4; O2SAT 99
== END 2017-04-02 18:39 | disposition home or self-care (01) | DRG 386 ==
LOC: C.ER 20:26 → C.9E 22:11 → C.3T 23:19 → OBSVTOIN 03-29 21:09 → C.3T 03-31 17:13
PROVIDERS: ADMIT Hospitalist; ATTEND Hospitalist
PROC: 0DBB8ZX Excision of Ileum, Via Natural or Artificial Opening Endoscopic, Diagnostic (ICD-10-PCS; principal; 2017-03-31 09:51)
DX: K50.80 Crohn's disease of both small and large intestine without complications (principal); N39.0 Urinary tract infection, site not specified; D50.9 Iron deficiency anemia, unspecified; K44.9 Diaphragmatic hernia without obstruction or gangrene; K64.8 Other hemorrhoids; F17.210 Nicotine dependence, cigarettes, uncomplicated; Z82.49 Family history of ischemic heart disease and other diseases of the circulatory system; Z83.3 Family history of diabetes mellitus

== ENCOUNTER 2017-06-23 04:30 | Emergency (ER) | payer OTHER ==
[2017-06-23 04:39] VITALS: O2SAT 100
[2017-06-23] MEDS ORDERED: Sodium Chloride 0.9% 500 ML IV ONE (05:05)
[2017-06-23] MEDS ORDERED: Sodium Chloride 0.9% 1,000 ML ONE (05:21)
[2017-06-23 05:26] LABS: BASO # 0.1 K/uL (0.0-0.2); BASO % 0.5 % (0.0-2.0); EOS # 0.2 K/uL (0.0-0.7); EOS % 1.8 % (0.0-4.0); HEMATOCRIT 33.1 % (34.0-47.0); LYMPH # 2.6 K/uL (1.0-4.3); LYMPH % 22.8 % (20.0-40.0); MEAN CELL VOLUME 79.4 fL (81.0-99.0); MEAN CORPUSCULAR HGB CONC 32.8 g/dL (33.0-37.0); MEAN PLATELET VOLUME 7.3 fL (7.2-11.7); MONO % 8.8 % (0.0-10.0); RED CELL DISTRIBUTION WIDTH 15.2 % (11.5-14.5); WHITE BLOOD COUNT 11.3 K/uL (4.8-10.8)
[2017-06-23 05:31] LABS: ALKALINE PHOSPHATASE 67 U/L (38-126); ALT/SGPT 20 U/L (9-52); AST/SGOT 43 U/L (14-36); BILIRUBIN,TOTAL 0.3 mg/dL (0.2-1.3); BLOOD UREA NITROGEN 12 mg/dL (7-17); CALCIUM 8.5 mg/dl (8.6-10.4); CARBON DIOXIDE 27 mmol/L (22-30); CHLORIDE 100 mmol/L (98-107); GFR AFRICAN-AMERICAN > 60; GLUCOSE,RANDOM 91 mg/dL (65-105); POTASSIUM 3.4 mmol/L (3.6-5.2); SODIUM 137 mmol/L (132-148); TOTAL PROTEIN 7.8 g/dL (6.3-8.3)
--- NOTE | 2017-06-23 05:58 | C.PDOC ---
21 year old female presents to the ER with a complaint of lower abdominal pain for the past 2 days, associated with intermittent vomiting. Patient has a recent Hx of crohn's disease and is on medications - name unsure. Denies vomiting today, diarrhea, rectal bleeding, fever, or UTI symptoms. (Desiree Ravi) History Per: Patient History/Exam Limitations: no limitations Onset/Duration Of Symptoms: Days Current Symptoms Are (Timing): Still Present Radiation Of Pain To:: None Quality Of Discomfort: Unable To Describe Associated Symptoms: Vomiting. denies: Fever, Urinary Symptoms, Other (Rectal bleeding) Exacerbating Factors: None Alleviating Factors: None Recent travel outside of the [place]: No Abnormal Vaginal Bleeding: No <Desiree Lopez - Last Filed: 06/23/17 07:13> <Elina Hernandez - Last Filed: 06/25/17 00:28> Time Seen by Provider: 06/23/17 04:51 Chief Complaint (Nursing): Abdominal Pain Past Medical History Reviewed: Historical Data, Nursing Documentation, Vital Signs - Medical History PMH: Crohn's Disease, Gastritis Family History: States: Unknown Family Hx - Social History Hx Tobacco Use: No Hx Alcohol Use: Yes (occasional) Hx Substance Use: No - Immunization History Hx Tetanus Toxoid Vaccination: No Hx Influenza Vaccination: No Hx Pneumococcal Vaccination: No <Desiree Lopez - Last Filed: 06/23/17 07:13> <Elina Hernandez - Last Filed: 06/25/17 00:28> Vital Signs: Last Vital Signs Temp 99.1 F 06/23/17 07:14 Pulse 90 06/23/17 07:14 Resp 16 06/23/17 07:14 BP 116/68 06/23/17 07:14 Pulse Ox 100 06/23/17 07:21 - [facility] Procedures EXCISION OF DUODENUM, ENDO, DIAGN (03/29/17) EXCISION OF ILEOCECAL VALVE, ENDO, DIAGN (03/29/17) EXCISION OF ILEUM, ENDO, DIAGN (03/29/17) Review Of Systems Constitutional: Negative for: Fever, Chills Gastrointestinal: Positive for: Vomiting. Negative for: Other (Rectal bleeding) Genitourinary: Negative for: Dysuria, Hematuria <Desiree Lopez - Last Filed: 06/23/17 07:13> Physical Exam - Physical Exam Appears: Non-toxic, No Acute Distress Skin: Normal Color, Warm, Dry Head: Atraumatic, Normacephalic Eye(s): bilateral: Normal Inspection Oral Mucosa: Moist Chest: Symmetrical, No Tenderness Cardiovascular: Rhythm Regular Respiratory: Normal Breath Sounds, No Rales, No Rhonchi, No Wheezing Gastrointestinal/Abdominal: Soft, Tenderness (Minimal diffuse), No Distention, No Guarding, No Rebound Neurological/Psych: Oriented x3, Normal Speech <Desiree Lopez - Last Filed: 06/23/17 07:13> ED Course And Treatment - Laboratory Results Result Diagrams: 06/23/17 05:23 06/23/17 05:23 O2 Sat by Pulse Oximetry: 100 (Room air) Pulse Ox Interpretation: Normal Progress Note: Blood work and urinalysis ordered. Pepcid, IV fluids, and zofran administered. Labs reviewed and d/w pt. Pt in NAD , reports pain has improved. Pt on medication prescribed by GI ( pt unsure of name). I educated the pt in proper crohns diet and advised to continue current management and to follow up in clinic. Pt agrees with plan Reevaluation Time: 07:15 Reassessment Condition: Improved <Desiree Lopez - Last Filed: 06/23/17 07:13> - Laboratory Results Result Diagrams: 06/23/17 05:23 06/23/17 05:23 <Elina Hernandez N - Last Filed: 06/25/17 00:28> Disposition Counseled Patient/Family Regarding: Diagnosis, Need For Followup - Disposition Disposition Time: 07:17 <Desiree Lopez - Last Filed: 06/23/17 07:13> <Elina Hernandez N - Last Filed: 06/25/17 00:28> - Disposition Referrals: Kayla Parker MD [Staff Provider] - Disposition: HOME/ ROUTINE Condition: STABLE Additional Instructions: Increase PO fluids Have a diet high in fruits and veggies stay away from a lot of fatty foods and processed carbs Return to ER if severe pain, fever, bloody stools or worse Instructions: Acute Abdominal Pain (ED) Forms: [facility] (Irish), Work Excuse - Clinical Impression Clinical Impression: Abdominal pain - PA / RADIO NEWS ANCHOR / Resident Statement MD/DO has reviewed & agrees with the documentation as recorded. - Scribe Statement The provider has reviewed the documentation as recorded by the Scribe <Desiree Lopez - Last Filed: 06/23/17 07:13> <Elina Hernandez - Last Filed: 06/25/17 00:28> - Scribe Statement Ari Hays All medical record entries made by the Scribe were at my direction and personally dictated by me. I have reviewed the chart and agree that the record accurately reflects my personal performance of the history, physical exam, medical decision making, and the department course for this patient. I have also personally directed, reviewed, and agree with the discharge instructions and disposition. (Desiree Lopez) Addendum <Desiree Lopez - Last Filed: 06/23/17 07:13> <Elina Hernandez - Last Filed: 06/25/17 00:28> Addendum: 06/25/17 00:28 case was discussed with me. Management seems appropriate. Pt felt better prior to dc home. (Elina Hernandez)
[2017-06-23 06:50] LABS: URINE BACTERIA RARE (<OCC); URINE BILIRUBIN NEGATIVE (NEGATIVE); URINE BLOOD NEGATIVE (NEGATIVE); URINE COLOR Yellow (YELLOW); URINE GLUCOSE (UA) NORMAL (Normal); URINE KETONE TRACE mg/dL (NEGATIVE); URINE LEUKOCYTE ESTERASE NEG Leu/uL (Negative); URINE PROTEIN NEGATIVE (NEGATIVE); URINE UROBILINOGEN NORMAL mg/dL (0.2-1.0); WBC URINE 4 /hpf (0-5)
[2017-06-23 07:15] VITALS: BP 116/68; PULSE 90; RESP 16; TEMP 99.1
== END 2017-06-23 07:24 | disposition home or self-care (01) ==
LOC: C.ER 04:30
DX: R10.30 Lower abdominal pain, unspecified (principal)
CPT/HCPCS: 80053; 81001; 83690; 84703; 85025; 96374; 96375; 99284; J1885; J2405; J7040

== ENCOUNTER 2017-09-06 09:08 | Day surgery (SDC) | payer OTHER ==
[2017-09-06 09:36] VITALS: BMI 22.6
[2017-09-06 10:00] VITALS: TEMP 98.2; O2SAT 100
[2017-09-06] MEDS ORDERED: Lactated Ringer's 1,000 ML IV ONE (10:45)
[2017-09-06] MEDS ORDERED: Propofol 10 mg/ml Inj (20 ML) ONE ×2 (10:50→11:02)
[2017-09-06] MEDS ORDERED: Midazolam 2 MG/2 ML VIAL ONE (11:01)
[2017-09-06 12:31] VITALS: RESP 12
[2017-09-06 13:05] VITALS: BP 100/64; PULSE 76
== END 2017-09-06 12:45 | disposition home or self-care (01) ==
LOC: C.ENDO 09:08
PROVIDERS: ATTEND Internal Medicine Gastroenterology
DX: K50.90 Crohn's disease, unspecified, without complications (principal); K63.2 Fistula of intestine; K25.9 Gastric ulcer, unspecified as acute or chronic, without hemorrhage or perforation; K52.9 Noninfective gastroenteritis and colitis, unspecified
CPT/HCPCS: 45380; 84703; 88305; J2250; J2704; J3010; J7120

== ENCOUNTER 2018-01-22 11:51 | Emergency (ER) | payer OTHER ==
[2018-01-22 11:51] VITALS: BMI 22.6
[2018-01-22] MEDS ORDERED: Sodium Chloride 0.9% 1,000 ML IV ONE (12:26)
[2018-01-22] MEDS ORDERED: Sodium Chloride 0.9% 1,000 ML ONE (12:39)
[2018-01-22 12:40] LABS: BASO % 0.3 % (0.0-2.0); EOS # 0.1 K/uL (0.0-0.7); EOS % 1.5 % (0.0-4.0); HEMOGLOBIN 11.1 g/dL (11.0-16.0); LYMPH # 1.1 K/uL (1.0-4.3); LYMPH % 12.6 % (20.0-40.0); MEAN CELL VOLUME 79.6 fL (81.0-99.0); MEAN CORPUSCULAR HEMOGLOBIN 26.4 pg (27.0-31.0); MEAN CORPUSCULAR HGB CONC 33.1 g/dL (33.0-37.0); MEAN PLATELET VOLUME 8.1 fL (7.2-11.7); MONO # 0.7 K/uL (0.0-0.8); MONO % 7.7 % (0.0-10.0); NEUT # 6.9 K/uL (1.8-7.0); NEUT % 77.9 % (50.0-75.0); RBC 4.21 Mil/uL (3.80-5.20); RED CELL DISTRIBUTION WIDTH 14.7 % (11.5-14.5); WHITE BLOOD COUNT 8.8 K/uL (4.8-10.8)
[2018-01-22 12:54] LABS: ALB/GLOB RATIO 1.4 (1.0-2.1); ALBUMIN 4.4 g/dL (3.5-5.0); ALT/SGPT 25 U/L (9-52); AST/SGOT 14 U/L (14-36); BLOOD UREA NITROGEN 13 mg/dL (7-17); CALCIUM 9.3 mg/dl (8.6-10.4); GFR AFRICAN-AMERICAN > 60; GFR NON-AFRICAN AMERICAN > 60; LIPASE 33 U/L (23-300)
--- NOTE | 2018-01-22 12:58 | C.PDOC ---
History Of Present Illness 22 year old female with PMHx of Crohn's Disease presents to the ED complaining of lower abdominal pain and cramping. Patient states she has not had a flare up in a long time. Patient takes Mesalamine twice a day. She denies any nausea, vomiting, diarrhea, fever, or urinary symptoms. Patient able to tolerate PO. Time Seen by Provider: 01/22/18 12:12 Chief Complaint (Nursing): Abdominal Pain History Per: Patient History/Exam Limitations: no limitations Onset/Duration Of Symptoms: Days Current Symptoms Are (Timing): Still Present Location Of Pain/Discomfort: Suprapubic Radiation Of Pain To:: None Past Medical History Reviewed: Historical Data, Nursing Documentation, Vital Signs Vital Signs: Last Vital Signs Temp 100.2 F H 01/22/18 12:03 Pulse 110 H 01/22/18 12:03 Resp 18 01/22/18 12:03 BP 112/75 01/22/18 12:03 Pulse Ox 98 01/22/18 14:32 - Medical History PMH: Anemia, Crohn's Disease, Gastritis Denies: Diverticulitis, Gall Bladder Disease, HIV, Pancreatitis, Chronic Kidney Disease Surgical History: No Surg Hx - [facility] Procedures EXCISION OF DUODENUM, ENDO, DIAGN (03/29/17) EXCISION OF ILEOCECAL VALVE, ENDO, DIAGN (03/29/17) EXCISION OF ILEUM, ENDO, DIAGN (03/29/17) Family History: States: No Known Family Hx - Social History Hx Tobacco Use: No Hx Alcohol Use: Yes (occasional) Hx Substance Use: No - Immunization History Hx Tetanus Toxoid Vaccination: No Hx Influenza Vaccination: No Hx Pneumococcal Vaccination: No Review Of Systems Constitutional: Negative for: Fever, Chills Gastrointestinal: Positive for: Abdominal Pain (Lower abdominal pain ), Other ( Cramping ). Negative for: Nausea, Vomiting, Diarrhea, Hematochezia Genitourinary: Negative for: Hematuria, Vaginal Discharge, Vaginal Bleeding Musculoskeletal: Negative for: Back Pain Physical Exam - Physical Exam Appears: Non-toxic, No Acute Distress Skin: Normal Color, Warm, Dry Head: Atraumatic, Normacephalic Eye(s): bilateral: Normal Inspection Nose: Normal Oral Mucosa: Moist Neck: Supple Chest: Symmetrical Cardiovascular: Rhythm Regular Respiratory: Normal Breath Sounds, No Rales, No Rhonchi, No Wheezing Gastrointestinal/Abdominal: Soft, Tenderness (Lower and Mid abdomen tenderness) , No Guarding, No Rebound Neurological/Psych: Oriented x3, Normal Speech Gait: Steady ED Course And Treatment - Laboratory Results Result Diagrams: 01/22/18 12:36 01/22/18 12:36 Lab Interpretation: No Acute Changes O2 Sat by Pulse Oximetry: 98 Pulse Ox Interpretation: Normal Progress Note: Patient c/o persistent pain after IV fluids and Toradol. No apparent distress on exam. Bentyl and Tylenol ordered. Reevaluation Time: 14:32 Reassessment Condition: Improved Medical Decision Making Medical Decision Making: Plan: - Toradol - IV Fluids Disposition Counseled Patient/Family Regarding: Studies Performed, Diagnosis, Need For Followup, Rx Given - Disposition Referrals: [facility] [Outside] Disposition: HOME/ ROUTINE Disposition Time: 14:33 Condition: IMPROVED Prescriptions: Dicyclomine [Bentyl] 20 mg PO QID PRN #20 tab PRN Reason: Pain, Severe (8-10) Instructions: Crohn's Disease in Adults Forms: [facility] (Kittitian) - Clinical Impression Clinical Impression: Abdominal pain, Crohn disease - Scribe Statement The provider has reviewed the documentation as recorded by the Scribe Jossie Ford All medical record entries made by the Scribe were at my direction and personally dictated by me. I have reviewed the chart and agree that the record accurately reflects my personal performance of the history, physical exam, medical decision making, and the department course for this patient. I have also personally directed, reviewed, and agree with the discharge instructions and disposition.
[2018-01-22 14:58] VITALS: BP 111/60; PULSE 90; RESP 16; TEMP 98.2; O2SAT 99
== END 2018-01-22 14:57 | disposition home or self-care (01) ==
LOC: C.ER 11:51
DX: K50.90 Crohn's disease, unspecified, without complications (principal)
CPT/HCPCS: 80053; 83690; 84703; 85025; 87086; 96361; 96372; 96374; 99284; J0500; J1885; J7030

== ENCOUNTER 2018-03-30 11:19 | Emergency (ER) | payer OTHER ==
[2018-03-30 11:19] VITALS: BMI 22.6
[2018-03-30 11:34] VITALS: O2SAT 98
[2018-03-30 11:59] LABS: HCG,QUALITATIVE URINE NEGATIVE (NEGATIVE)
[2018-03-30 12:07] LABS: SQUAMOUS EPITHIAL 8 /hpf (0-5); URINE BILIRUBIN NEGATIVE (NEGATIVE); URINE BLOOD NEGATIVE (NEGATIVE); URINE CLARITY Clear (Clear); URINE COLOR Yellow (YELLOW); URINE GLUCOSE (UA) NORMAL (Normal); URINE LEUKOCYTE ESTERASE NEG Leu/uL (Negative); URINE PROTEIN NEGATIVE (NEGATIVE); URINE UROBILINOGEN NORMAL mg/dL (0.2-1.0)
[2018-03-30] MEDS ORDERED: Sodium Chloride 0.9% 1,000 ML IV ONE (12:19)
--- NOTE | 2018-03-30 12:31 | RAD ---
Date of service: 03/30/2018 HISTORY: pain COMPARISON: No prior. FINDINGS: BOWEL: Normal. No obstruction. No free air. BONES: Normal. OTHER FINDINGS: None. IMPRESSION: No active disease.
--- NOTE | 2018-03-30 12:32 | C.PDOC ---
History Of Present Illness 22 y/o female with PMHx of Crohns disease (compliant with medication), presents to the ED complaining of persistent abdominal pain. Patient was seen here recently on 01/22/18 for similar complaint, had normal blood work, and was disc harged home. Admits she has not followed up with GI specialist Dr. Quan since, and is still not feeling improvement. Patient also reports the medication from last time (PO Bentyl, Tylenol, and Toradol) did not help. Otherwise she denies any nausea, vomiting, diarrhea, bloody stools, fever, chills, urinary symptoms, or other complaints. Time Seen by Provider: 03/30/18 11:46 Chief Complaint (Nursing): Abdominal Pain History Per: Patient History/Exam Limitations: no limitations Onset/Duration Of Symptoms: Days Current Symptoms Are (Timing): Still Present Location Of Pain/Discomfort: Epigastric Additional History Per: Prior Records Abnormal Vaginal Bleeding: No Past Medical History Reviewed: Historical Data, Nursing Documentation, Vital Signs Vital Signs: Last Vital Signs Temp 98.9 F 03/30/18 11:29 Pulse 110 H 03/30/18 11:29 Resp 20 03/30/18 11:29 BP 119/81 03/30/18 11:29 Pulse Ox 98 03/30/18 11:29 - Medical History PMH: Anemia, Crohn's Disease, Gastritis Denies: Diverticulitis, Gall Bladder Disease, HIV, Pancreatitis, Chronic Kidney Disease - [facility] Procedures EXCISION OF DUODENUM, ENDO, DIAGN (03/29/17) EXCISION OF ILEOCECAL VALVE, ENDO, DIAGN (03/29/17) EXCISION OF ILEUM, ENDO, DIAGN (03/29/17) Family History: States: Unknown Family Hx - Social History Hx Tobacco Use: No Hx Alcohol Use: Yes (occasional) Hx Substance Use: No - Immunization History Hx Tetanus Toxoid Vaccination: Yes Hx Influenza Vaccination: No Hx Pneumococcal Vaccination: No Review Of Systems Except As Marked, All Systems Reviewed And Found Negative. Constitutional: Negative for: Fever, Chills, Sweats Eyes: Negative for: Vision Change Cardiovascular: Negative for: Chest Pain, Palpitations Respiratory: Negative for: Shortness of Breath Gastrointestinal: Positive for: Abdominal Pain. Negative for: Nausea, Vomiting, Diarrhea, Hematochezia Genitourinary: Negative for: Dysuria, Frequency, Incontinence, Hematuria, Vaginal Bleeding Neurological: Negative for: Weakness, Dizziness Physical Exam - Physical Exam Appears: Non-toxic, No Acute Distress Skin: Normal Color, Warm, Dry Head: Atraumatic, Normacephalic Eye(s): bilateral: Normal Inspection, PERRL, EOMI Oral Mucosa: Moist Neck: Normal ROM Chest: Symmetrical Cardiovascular: Rhythm Regular, No Murmur Respiratory: Normal Breath Sounds, No Accessory Muscle Use, No Wheezing Gastrointestinal/Abdominal: Bowel Sounds (active), Soft, No Tenderness, No Distention, No Guarding, No Rebound Back: No CVA Tenderness, No Vertebral Tenderness Extremity: Bilateral: Atraumatic, Normal ROM Neurological/Psych: Oriented x3, Normal Speech Gait: Steady ED Course And Treatment - Laboratory Results Result Diagrams: 03/30/18 12:28 03/30/18 12:28 Lab Interpretation: Abnormal Urine POC: Negative O2 Sat by Pulse Oximetry: 98 (RA) Pulse Ox Interpretation: Normal - Other Rad No standard instances X-Ray: Interpreted by Me Interpretation: Abd X-Ray: neg Progress Note: Treated with bentyl IM, Tordol and IVF NSS. On re-evaluation abdomen soft in no distress. Discharged to home advised to follow up with GI for further evaluation. Return to ED if any increase symptoms Reassessment Condition: Improved Medical Decision Making Medical Decision Making: Initial Plan: Blood work and urine sent. Administered IV fluids, 20 mg Bentyl PO, and 30 mg Toradol IVP. Disposition Counseled Patient/Family Regarding: Studies Performed, Diagnosis, Need For Followup, Rx Given - Disposition Referrals: [facility] [Outside] [facility] [Outside] Disposition: HOME/ ROUTINE Disposition Time: 18:00 Condition: STABLE Additional Instructions: Follow up with your GI for further evaluation Prescriptions: Dicyclomine [Bentyl] 20 mg PO Q6 PRN #20 tab PRN Reason: Gi Distress Instructions: Crohn's Disease in Adults, Acute Abdomen (Belly Pain), Adult (DC), Crohn's Disease (DC) Forms: [facility] (Malay) - POA Present On Arrival: None - Clinical Impression Clinical Impression: Abdominal pain, Colitis - PA / OCCUPATIONAL MEDICINE SPECIALIST / Resident Statement MD/DO has reviewed & agrees with the documentation as recorded. - Scribe Statement The provider has reviewed the documentation as recorded by the Scribe (Sybil Piña) All medical record entries made by the Scribe were at my direction and p ersonally dictated by me. I have reviewed the chart and agree that the record accurately reflects my personal performance of the history, physical exam, medical decision making, and the department course for this patient. I have also personally directed, reviewed, and agree with the discharge instructions and disposition.
[2018-03-30 12:33] LABS: BASO % 0.2 % (0.0-2.0); EOS # 0.3 K/uL (0.0-0.7); EOS % 2.3 % (0.0-4.0); HEMOGLOBIN 10.4 g/dL (11.0-16.0); LYMPH # 2.9 K/uL (1.0-4.3); LYMPH % 21.3 % (20.0-40.0); MEAN CELL VOLUME 77.7 fL (81.0-99.0); MEAN CORPUSCULAR HEMOGLOBIN 25.4 pg (27.0-31.0); MEAN CORPUSCULAR HGB CONC 32.7 g/dL (33.0-37.0); MEAN PLATELET VOLUME 7.3 fL (7.2-11.7); MONO # 1.2 K/uL (0.0-0.8); MONO % 8.5 % (0.0-10.0); NEUT # 9.2 K/uL (1.8-7.0); NEUT % 67.7 % (50.0-75.0); RBC 4.1 Mil/uL (3.80-5.20); RED CELL DISTRIBUTION WIDTH 13.9 % (11.5-14.5)
[2018-03-30 12:34] LABS: WHITE BLOOD COUNT 13.5 K/uL (4.8-10.8)
[2018-03-30 12:47] LABS: ALB/GLOB RATIO 1.1 (1.0-2.1); ALT/SGPT 22 U/L (9-52); AST/SGOT 15 U/L (14-36); BLOOD UREA NITROGEN 14 mg/dL (7-17); CALCIUM 9.3 mg/dl (8.6-10.4); GFR NON-AFRICAN AMERICAN > 60; LIPASE 20 U/L (23-300)
[2018-03-30 13:59] VITALS: BP 113/71; PULSE 78; RESP 16; TEMP 97.8
== END 2018-03-30 13:59 | disposition home or self-care (01) ==
LOC: C.ER 11:19
DX: K52.9 Noninfective gastroenteritis and colitis, unspecified (principal)
CPT/HCPCS: 74018; 80053; 81001; 83690; 84703; 85025; 96361; 96372; 96374; 99284; J0500; J1885; J7030

== ENCOUNTER 2018-05-22 11:07 | Emergency (ER) | payer OTHER ==
[2018-05-22 11:07] VITALS: BMI 22.6
[2018-05-22 11:23] VITALS: RESP 18; TEMP 98.5
--- NOTE | 2018-05-22 11:58 | C.PDOC ---
History Of Present Illness 22 year old female presents to the ED for an evaluation of right 4th finger swelling for one day. Reports she woke up yesterday and her finger was swollen so she took off her ring. Notes swelling has improved since yesterday. Denies any trauma or injuries, weakness or numbness. Time Seen by Provider: 05/22/18 11:19 Chief Complaint (Nursing): Finger,Hand,&Wrist History Per: Patient History/Exam Limitations: no limitations Onset/Duration Of Symptoms: Days (1) Current Symptoms Are (Timing): Still Present Past Medical History Reviewed: Historical Data, Nursing Documentation, Vital Signs Vital Signs: Last Vital Signs Temp 98.5 F 05/22/18 11:14 Pulse 84 05/22/18 11:14 Resp 18 05/22/18 11:14 BP Pulse Ox 97 05/22/18 11:14 - Medical History PMH: Anemia, Crohn's Disease, Gastritis Denies: Diverticulitis, Gall Bladder Disease, HIV, Pancreatitis, Chronic Kidney Disease Surgical History: No Surg Hx - [facility] Procedures EXCISION OF DUODENUM, ENDO, DIAGN (03/29/17) EXCISION OF ILEOCECAL VALVE, ENDO, DIAGN (03/29/17) EXCISION OF ILEUM, ENDO, DIAGN (03/29/17) Family History: States: No Known Family Hx - Social History Hx Tobacco Use: No Hx Alcohol Use: Yes (occasional) Hx Substance Use: No - Immunization History Hx Tetanus Toxoid Vaccination: Yes Hx Influenza Vaccination: No Hx Pneumococcal Vaccination: No Review Of Systems Musculoskeletal: Positive for: Other (4th finger pain and swelling ) Neurological: Negative for: Weakness, Numbness Physical Exam - Physical Exam Appears: Non-toxic, No Acute Distress Skin: Warm, Dry, No Rash Head: Atraumatic, Normacephalic Eye(s): bilateral: Normal Inspection, EOMI Nose: Normal Oral Mucosa: Moist Chest: Symmetrical Respiratory: No Accessory Muscle Use, Other (speaking in full sentences) Extremity: Normal ROM, Tenderness (TTP with very minimal swelling at to the PIP right 4th finger ), Capillary Refill (less than 2 sec to right 4th finger), No Deformity Extremity: Bilateral: Normal Color And Temperature, Normal ROM Pulses: Left Radial: Normal, Right Radial: Normal Neurological/Psych: Oriented x3, Normal Speech, Normal Motor, Normal Sensation Gait: Steady ED Course And Treatment O2 Sat by Pulse Oximetry: 97 (RA) Pulse Ox Interpretation: Normal Progress Note: Patient given Motrin 400mg PO. Finger splint applied by metal buffer. Pt declined XR. Disposition - Disposition Referrals: Gavino Brian MD [Staff Provider] - Disposition: HOME/ ROUTINE Disposition Time: 11:56 Condition: STABLE Additional Instructions: Rest, ice and elevate he area. Follow up with hand specialist in 1-2 days. Instructions: Finger Sprain (DC) Forms: [employer] (Sao Tomean) - Clinical Impression Clinical Impression: Finger sprain - PA / BUSINESS APPLICATIONS ANALYST / Resident Statement MD/DO has reviewed & agrees with the documentation as recorded. - Scribe Statement The provider has reviewed the documentation as recorded by the Scribe Jossie Ford All medical record entries made by the Sheilaibmelvin were at my direction and personally dictated by me. I have reviewed the chart and agree that the record accurately reflects my personal performance of the history, physical exam, medical decision making, and the department course for this patient. I have also personally directed, reviewed, and agree with the discharge instructions and disposition.
--- NOTE | 2018-05-22 11:59 | C.PDOC ---
Time Seen by Provider: 05/22/18 11:19 Chief Complaint (Nursing): Finger,Hand,&Wrist Past Medical History Vital Signs: Last Vital Signs Temp 98.5 F 05/22/18 11:14 Pulse 84 05/22/18 11:14 Resp 18 05/22/18 11:14 BP Pulse Ox 97 05/22/18 11:14 - Medical History PMH: Anemia, Crohn's Disease, Gastritis Denies: Diverticulitis, Gall Bladder Disease, HIV, Pancreatitis, Chronic Kidney Disease - [facility] Procedures EXCISION OF DUODENUM, ENDO, DIAGN (03/29/17) EXCISION OF ILEOCECAL VALVE, ENDO, DIAGN (03/29/17) EXCISION OF ILEUM, ENDO, DIAGN (03/29/17) Family History: States: Unknown Family Hx - Social History Hx Tobacco Use: No Hx Alcohol Use: Yes (occasional) Hx Substance Use: No - Immunization History Hx Tetanus Toxoid Vaccination: Yes Hx Influenza Vaccination: No Hx Pneumococcal Vaccination: No ED Course And Treatment O2 Sat by Pulse Oximetry: 97 Disposition - Disposition Forms: [email or web address] (Italian) - PA / AFTER SCHOOL PROGRAM TEACHER / Resident Statement MD/DO has reviewed & agrees with the documentation as recorded. - Scribe Statement The provider has reviewed the documentation as recorded by the Scribe Jossie Rosen All medical record entries made by the Sheilaibmelvin were at my direction and personally dictated by me. I have reviewed the chart and agree that the record accurately reflects my personal performance of the history, physical exam, medical decision making, and the department course for this patient. I have also personally directed, reviewed, and agree with the discharge instructions and disposition.
[2018-05-22 12:16] VITALS: BP 115/74; PULSE 88
[2018-05-22 16:06] VITALS: O2SAT 97
== END 2018-05-22 12:16 | disposition home or self-care (01) ==
LOC: C.ER 11:07
DX: S63.614A Unspecified sprain of right ring finger, initial encounter (principal); X58.XXXA Exposure to other specified factors, initial encounter

== ENCOUNTER 2018-06-16 13:59 | Emergency (ER) | payer OTHER ==
[2018-06-16 13:59] VITALS: BMI 22.6
[2018-06-16 14:13] VITALS: BP 103/70; PULSE 115; RESP 18; TEMP 98; O2SAT 97
[2018-06-16] MEDS ORDERED: Lidocaine 5% Patch TD ONE (14:43)
--- NOTE | 2018-06-16 14:54 | C.PDOC ---
History Of Present Illness 22 y/o female w/PMhx of Crohn's disease and back problems, presents to the ER complaining of upper thoracic pain in between shoulder blades which has been present for the past few months. Patient states that the pain is intermittent and describes the pain as muscle spasm in nature. Patient reports that the pain is 10/10. She notes that she has history of lower back pain. Denies having urinary symptoms. Time Seen by Provider: 06/16/18 14:08 Chief Complaint (Nursing): Back Pain History Per: Patient History/Exam Limitations: no limitations Onset/Duration Of Symptoms: Days Current Symptoms Are (Timing): Still Present Severity: Moderate Past Medical History Reviewed: Historical Data, Nursing Documentation, Vital Signs Vital Signs: Last Vital Signs Temp 98 F 06/16/18 14:10 Pulse 115 H 06/16/18 14:10 Resp 18 06/16/18 14:10 BP 103/70 06/16/18 14:10 Pulse Ox 97 06/16/18 14:10 - Medical History PMH: Anemia, Back Problems, Crohn's Disease, Gastritis Denies: Diverticulitis, Gall Bladder Disease, HIV, Pancreatitis, Chronic Kidney Disease Other Surgeries: Hx of surgeries - [facility] EXCISION OF DUODENUM, ENDO, DIAGN (03/29/17) EXCISION OF ILEOCECAL VALVE, ENDO, DIAGN (03/29/17) EXCISION OF ILEUM, ENDO, DIAGN (03/29/17) Family History: States: No Known Family Hx - Social History Hx Tobacco Use: No Hx Alcohol Use: Yes (occasional) Hx Substance Use: No - Immunization History Hx Tetanus Toxoid Vaccination: Yes Hx Influenza Vaccination: No Hx Pneumococcal Vaccination: No Review Of Systems Except As Marked, All Systems Reviewed And Found Negative. Genitourinary: Negative for: Dysuria, Frequency, Incontinence, Hematuria Musculoskeletal: Positive for: Back Pain Physical Exam - Physical Exam Appears: Non-toxic, No Acute Distress Skin: Normal Color, Warm, Dry Head: Atraumatic, Normacephalic Eye(s): bilateral: Normal Inspection Nose: Normal Oral Mucosa: Moist Neck: Supple Chest: Symmetrical Cardiovascular: Rhythm Regular Respiratory: Normal Breath Sounds, No Rales, No Rhonchi, No Wheezing Gastrointestinal/Abdominal: Normal Exam, Soft, No Tenderness, No Guarding, No Rebound Back: Normal Inspection, No Vertebral Tenderness, No Paraspinal Tenderness Extremity: Normal ROM Neurological/Psych: Oriented x3, Normal Speech ED Course And Treatment O2 Sat by Pulse Oximetry: 97 (RA) Pulse Ox Interpretation: Normal Medical Decision Making Medical Decision Making: Plan: --Lidoderm Patch Updates: Patient has been discharged and instructed to follow up with doctor or clinic. Disposition Counseled Patient/Family Regarding: Need For Followup - Disposition Referrals: [facility] [Outside] Disposition: HOME/ ROUTINE Disposition Time: 14:52 Condition: STABLE Additional Instructions: Follow up with your doctor or clinic. 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 Instructions: Back Exercises Forms: General Discharge Instructions, [facility] (Czech), Work Excuse - POA Present On Arrival: None - Clinical Impression Clinical Impression: Chronic back pain, Thoracic back sprain - Scribe Statement The provider has reviewed the documentation as recorded by the Jaylene Torre Provider Attestation: All medical record entries made by the Sheilaibe were at my direction and personally dictated by me. I have reviewed the chart and agree that the record accurately reflects my personal performance of the history, physical exam, medical decision making, and the department course for this patient. I have also personally directed, reviewed, and agree with the discharge instructions and d isposition.
[2018-06-17] MEDS ORDERED: Lidocaine 5% Patch TD SCH (10:00)
== END 2018-06-16 15:00 | disposition home or self-care (01) ==
LOC: C.ER 13:59
DX: S23.3XXA Sprain of ligaments of thoracic spine, initial encounter (principal); X58.XXXA Exposure to other specified factors, initial encounter; G89.29 Other chronic pain; M54.9 Dorsalgia, unspecified

== ENCOUNTER 2018-07-24 05:41 | Emergency (ER) | payer OTHER | END 2018-07-24 08:16 | disposition home or self-care (01) | LOC: C.ER 05:41 ==

== ENCOUNTER 2018-09-27 07:01 | Day surgery (SDC) | payer OTHER ==
[2018-09-26 10:20] VITALS: BMI 26.4
[2018-09-27] MEDS ORDERED: Lactated Ringer's 1,000 ML IV ONE (10:25)
[2018-09-27] MEDS ORDERED: Propofol 10 mg/ml Inj (20 ML) ONE (10:32)
[2018-09-27] MEDS ORDERED: Lidocaine Hydrochloride 5 ML INJ ONE (10:32)
--- NOTE | 2018-09-27 10:41 | CP.SDSHP ---
Same Day Surgery H & P - History Proposed Procedure: COLONSCOPY Pre-Op Diagnosis: SEE NOTES - Previous Medical/Surgical History Misc: Other Pain: 4.Moderate Pain - Allergies Allergies: Allergies seafood Allergy (Uncoded 09/27/18 07:41) SWELLING - Physical Exam General Appearance: N Vital Signs: Vital Signs 09/27/18 07:42 Temperature 98.4 F Pulse Rate 80 Respiratory 20 Rate Blood Pressure 111/65 O2 Sat by Pulse 98 Oximetry Mental Status: Alert & Oriented x3 Neuro: WNL Heart: WNL Lungs: WNL GI: Other - {Optional Preform as Required} Breast: WNL Abdomen: Other Rectal: Other Integument: WNL : WNL Ortho: WNL ENT: WNL - Impression Pt. Evaluated Today:Candidate for Anesthesia & Procedure: Yes - Date & Time Time: 10:40 Short Stay Discharge - Short Stay Discharge Admitting Diagnosis/Reason for Visit: IRRITABLE BOWEL SYNDROME Disposition: HOME/ ROUTINE
[2018-09-27] MEDS ORDERED: Pantoprazole 40 mg EC Tab PO ONE (11:00)
[2018-09-27] MEDS ORDERED: MethylPREDNISolone 40 mg Vial IVP ONE (11:15)
[2018-09-27 11:28] VITALS: TEMP 97.7; O2SAT 100
[2018-09-27] MEDS ORDERED: Belladonna-Phenobarbital PO ONE (11:35)
[2018-09-27 12:23] VITALS: BP 106/67; PULSE 88; RESP 16
== END 2018-09-27 12:20 | disposition home or self-care (01) ==
LOC: C.ENDO 07:01
PROVIDERS: ATTEND Specialist
DX: K58.9 Irritable bowel syndrome, unspecified (principal); K50.90 Crohn's disease, unspecified, without complications
CPT/HCPCS: 45380; 84703; 88305; J2704; J2920; J7120

== ENCOUNTER 2018-10-17 10:15 | Emergency (ER) | payer OTHER ==
[2018-10-17 10:15] VITALS: BMI 26.4
[2018-10-17 10:27] VITALS: BP 133/86; PULSE 101; RESP 18; TEMP 99.1; O2SAT 99
--- NOTE | 2018-10-17 10:47 | C.PDOC ---
History Of Present Illness 22 year old female presents to the ED for evaluation of facial edema. Patient recently underwent removal of 4 wisdom teeth and left from upper tooth extraction 3 days ago. Patient has been taking Tylenol and antibiotics are prescribed. She denies fever, chills. Time Seen by Provider: 10/17/18 10:36 Chief Complaint (Nursing): Dental Pain History Per: Patient History/Exam Limitations: no limitations Onset/Duration Of Symptoms: Days Current Symptoms Are (Timing): Still Present Additional History Per: Patient Past Medical History Reviewed: Historical Data, Nursing Documentation, Vital Signs Vital Signs: Last Vital Signs Temp 99.1 F 10/17/18 10:22 Pulse 101 H 10/17/18 10:22 Resp 18 10/17/18 10:22 BP 133/86 10/17/18 10:22 Pulse Ox 99 10/17/18 10:22 - Medical History PMH: Anemia, Back Problems, Crohn's Disease, Gastritis Denies: Diverticulitis, Gall Bladder Disease, HIV, Pancreatitis, Chronic Kidney Disease Surgical History: No Surg Hx - [facility] Procedures EXCISION OF DUODENUM, ENDO, DIAGN (03/29/17) EXCISION OF ILEOCECAL VALVE, ENDO, DIAGN (03/29/17) EXCISION OF ILEUM, ENDO, DIAGN (03/29/17) Family History: States: Unknown Family Hx - Social History Hx Tobacco Use: No Hx Alcohol Use: Yes (occasional) Hx Substance Use: No - Immunization History Hx Tetanus Toxoid Vaccination: Yes Hx Influenza Vaccination: No Hx Pneumococcal Vaccination: No Review Of Systems Constitutional: Negative for: Fever, Chills ENT: Positive for: Other (facial edema s/p tooth extraction ) Physical Exam - Physical Exam Appears: Non-toxic, No Acute Distress Skin: Normal Color, Warm, Dry Head: Atraumatic, Other (bilateral cheek edema, no erythema ) Teeth: Other (healing dental socket. no erythema, discharge or foul-smell ) Neck: Supple Chest: Symmetrical, No Deformity Neurological/Psych: Normal Speech, Normal Cognition ED Course And Treatment O2 Sat by Pulse Oximetry: 99 (on RA) Pulse Ox Interpretation: Normal Progress Note: Motrin PO given. Medical Decision Making Medical Decision Making: POD #3 x4 molars and one upper front left tooth extractions no s/s of infection mild facial edema typical Tylenol #3x 20 tabs received 4/12 (per [place] [employer]), still has more @ home NSAIDS/ice educated opt f/u with Dental PRN Disposition Doctor Will See Patient In The: Office Counseled Patient/Family Regarding: Studies Performed, Diagnosis - Disposition Referrals: [facility] [Outside] [facility] [Outside] [facility] [Outside] Disposition: HOME/ ROUTINE Disposition Time: 10:46 Condition: GOOD Additional Instructions: your facial swelling is typical post-op swelling after multiple tooth extractions continue ice packs to the face 1/2 hour per hour, nothing hot Motrin/Advil 400-600 mg every 6 hours as needed Continue the Tylenol #3 you already received 10/14 in case of more severe pain Follow-up with your Dentist as needed. Forms: [employer] (Polish) - Clinical Impression Clinical Impression: Facial swelling - Scribe Statement The provider has reviewed the documentation as recorded by the Scribe (anil olvera) Provider Attestation: All medical record entries made by the Scribe were at my direction and personally dictated by me. I have reviewed the chart and agree that the record accurately reflects my personal performance of the history, physical exam, medical decision making, and the department course for this patient. I have also personally directed, reviewed, and agree with the discharge instructions and disposition.
== END 2018-10-17 10:54 | disposition home or self-care (01) ==
LOC: C.ER 10:15
DX: R22.0 Localized swelling, mass and lump, head (principal)